=== PATIENT | male | born 1950 | race Caucasian/White ===

== ENCOUNTER → 2018-03-11 | Outpatient (CLI) | payer BC ==
--- NOTE | 2018-03-11 08:58 | XR ---
EXAMINATION TYPE: XR lumbar spine 2 or 3V DATE OF EXAM: 03/11/2018 CLINICAL HISTORY: Unexplained pain with no known injury. TECHNIQUE: Frontal an lateral images of the lumbar spine are obtained. COMPARISON: None FINDINGS: There are 5 lumbar type vertebral bodies identified. The lumbar spine shows satisfactory alignment without evidence of acute fracture or dislocation. Vertebral body heights and disk space he ights are within normal limits. There is facet arthropathy from L3 through S1 with small anterior o steophytes throughout the lumbar spine and intervertebral disc space narrowing at L5-S1. Facet arthro alonzo appears to contribute to at least mild neural foraminal narrowing at L5-S1 suspected minimal ne ural foraminal narrowing at L4-L5. This could be further assessed with MRI. There is a mild levoscoli otic curvature of the lumbar spine, possibly positional in nature. Minimal atherosclerosis is seen of the abdominal aorta. Overlying bowel is nondilated. IMPRESSION: 1. No acute fracture or malalignment is seen in the lumbar spine. 2. Degenerative disc disease of the lumbar spine most pronounced at L4-L5 with neural foraminal narro wing at L5-S1 and suspected neural foraminal narrowing at L4-L5. More accurate assessment of degree o f stenosis could be assessed with MRI.
== END ==
LOC: RADXRMAIN 07:37
PROVIDERS: ATTEND Family Medicine
DX: M48.061 Spinal stenosis, lumbar region without neurogenic claudication (principal); M99.74 Connective tissue and disc stenosis of intervertebral foramina of sacral region; M51.36 Other intervertebral disc degeneration, lumbar region
CPT/HCPCS: 72100

== ENCOUNTER 2018-07-16 19:52 | Observation (INO) | payer MEDICARE, OTHER ==
--- NOTE | 2018-07-16 22:09 | ED ---
General Adult HPI - General Chief complaint: Recheck/Abnormal Lab/Rx Stated complaint: Mass on pancreas Source: patient, family, RN notes reviewed, old records reviewed Mode of arrival: ambulatory Limitations: no limitations - History of Present Illness Initial comments: Chief complaint and history of present illness this is a 68-year-old male who was told to come the emergency room after having had a CAT scan of the abdomen and pelvis. For the past several months the patient been losing weight. CAT scan performed today revealed a large mesenteric mass that appeared to be arising from the anterior pancreatic head is also suspicion for fistulous communication with the third portion of the duodenum with foci of internal air and a punctate focus of probable oral contrast contained within the mass. Also at least 9 hepatic metastasis. - Related Data Home Medications Medication Instructions Recorded Confirmed Aspirin EC [Ecotrin Low Dose] 81 mg PO DAILY 07/16/18 07/16/18 L.acidoph,Paracasei, B.lactis 1 cap PO DAILY 07/16/18 07/16/18 [Probiotic] Lisinopril 30 mg PO DAILY 07/16/18 07/16/18 Lovastatin [Mevacor] 40 mg PO HS 07/16/18 07/16/18 Multivitamins, Thera [Multivitamin 1 tab PO DAILY 07/16/18 07/16/18 (formulary)] Allergies Allergy/AdvReac Type Severity Reaction Status Date / Time No Known Allergies Allergy Verified 07/16/18 20:33 Review of Systems ROS Statement: Those systems with pertinent positive or pertinent negative responses have been documented in the HPI. Review of systems. The patient is denying any headache or chest pain or shortness of breath months ago had low back pain no abdominal pain. Significantly decreased appetite with 50 pound weight loss over the past several months. Has medical problems significant for insulin diabetes mellitus. But recently stopped his medications because of decreased appetite and lower blood sugars. He denies smoking. No family history of medical problems. He is to be an alcoholic but not for the past 10 years. No known ALLERGIES. ROS Other: All systems not noted in ROS Statement are negative. Past Medical History Past Medical History: Diabetes Mellitus History of Any Multi-Drug Resistant Organisms: None Reported Past Surgical History: No Surgical Hx Reported Past Psychological History: No Psychological Hx Reported Smoking Status: Former smoker Past Alcohol Use History: None Reported Past Drug Use History: None Reported General Exam - General Exam Comments Initial Comments: General: The patient is awake and alert, in no distress, and does not appear acutely ill. Patient is here because of a CAT scan that showed probable pancreatic neoplasm with extension into the duodenum and metastatic lesions to the liver. The patient had lab work done earlier in the day. This is reviewed. Amylase lipase within normal limits white count normal. Vital signs stable. Patient was sent in by the oncologist for evaluation and management. Eye: Pupils are equal, round and reactive to light, extra-ocular movements are intact ; there is normal conjunctiva bilaterally. No signs of icterus. Ears, nose, mouth and throat: There are moist mucous membranes and no oral lesions. Neck: The neck is supple, there is no tenderness or JVD. Cardiovascular: There is a regular rate and rhythm. No murmur, rub or gallop is appreciated. Respiratory: Lungs are clear to auscultation, respirations are non-labored, breath sounds are equal. No wheezes, stridor, rales, or rhonchi. Gastrointestinal: Soft, non-distended, non-tender abdomen without masses or organomegaly noted. There is no rebound or guarding present. No CVA tenderness. Bowel sounds are unremarkable. Back: There is no tenderness to palpation in the midline. There is no obvious deformity. No rashes noted. Musculoskeletal: Normal ROM, no tenderness, There is no pedal edema. There is no calf tenderness or swelling. Sensation intact. Pulses equal bilaterally 2+. Neurological: CN II-XII intact, There are no obvious motor or sensory deficits. Coordination appears grossly intact. Speech is normal. Skin: Skin is warm and dry and no rashes or lesions are noted. Psychiatric: Cooperative, a Limitations: no limitations Course Vital Signs 07/16/18 20:03 Temperature 97.7 F Pulse Rate 101 H Respiratory 20 Rate Blood Pressure 110/62 O2 Sat by Pulse 96 Oximetry Medical Decision Making - Medical Decision Making Medical decision making; the patient's here because of the CAT scan that showed evidence of pancreatic mass with possible fistula communication with the third portion of the duodenum. Patient is not complaining of abdominal pain at this time. Labs were performed as an outpatient today. His white count 20,000 hemoglobin 8.9 hematocrit 29. Potassium 4.5. BUN 18 creatinine 0.84 the GFR greater than 90. Glucose 92. AST ALT within normal limits alk phos within normal limits. Amylase 50 lipase 194. And discussed the case with Dr. Bryant on-call oncologist. He recommends admission for further evaluation. I also discussed the case withwan continuing education dean for Dr. Rao. Patient be admitted to internal medicine with oncology follow- up. d Disposition Clinical Impression: Pancreatic mass Disposition: ADMITTED IP TO THIS HOSP Is patient prescribed a controlled substance at d/c from ED?: No Referrals: Sai Landers DO [Primary Care Provider] - 1-2 days
[2018-07-16] MEDS ORDERED: HYDROmorphone 0.5 MG/0.5 ML SYRINGE IVP PRN (22:20)
[2018-07-16] MEDS ORDERED: NALOXONE 0.4 MG/ML 1 ML VIAL IV PRN (22:20)
[2018-07-16] MEDS ORDERED: ONDANSETRON 4 MG/2 ML VIAL IVP PRN (22:20)
[2018-07-16] MEDS: SODIUM CHLORIDE 0.9% 1,000 ML IV SCH (22:56)
[2018-07-16 23:23] VITALS: RESP 16; BMI 27.3
[2018-07-17 08:55] LABS: Basophils # (A) 0.1 k/uL (0-0.2); Basophils % (A) 0 %; Eosinophils # (A) 0.7 k/uL (0-0.7); Eosinophils % (A) 5 %; HCT 27.9 % (39.0-53.0); HGB 8.6 gm/dL (13.0-17.5); Hypochromasia Marked; Lymphocytes # (A) 0.8 k/uL (1.0-4.8); Lymphocytes % (A) 6 %; MCH 24.3 pg (25.0-35.0); MCHC 30.6 g/dL (31.0-37.0); MCV 79.3 fL (80.0-100.0); Mean Platelet Volume 5.9; Monocytes # (A) 0.9 k/uL (0-1.0); Monocytes % (A) 6 %; Neutrophils % (A) 80 %; Platelet Count 589 k/uL (150-450); RBC 3.52 m/uL (4.30-5.90); RDW 13.5 % (11.5-15.5); WBC 13.7 k/uL (3.8-10.6)
[2018-07-17] MEDS: SODIUM CHLORIDE 0.9% 1,000 ML IV SCH ×2 (08:56→18:03)
[2018-07-17] MEDS ORDERED: LISINOPRIL 10 MG TAB PO SCH (09:00)
[2018-07-17] MEDS ORDERED: PANTOPRAZOLE 40 MG/10 ML VIAL IV SCH (09:00)
[2018-07-17 09:27] LABS: ALT 22 U/L (21-72); AST 24 U/L (17-59); Albumin 3.2 g/dL (3.5-5.0); Alkaline Phosphatase 167 U/L (38-126); Amylase 42 U/L (30-110); Anion Gap 12 mmol/L; Blood Urea Nitrogen 13 mg/dL (9-20); Calcium 9.2 mg/dL (8.4-10.2); Carbon Dioxide 28 mmol/L (22-30); Chloride 100 mmol/L (98-107); Glucose 67 mg/dL (74-99); Lipase 308 U/L (23-300); Potassium 4.4 mmol/L (3.5-5.1); Sodium 140 mmol/L (137-145); Total Bilirubin 0.5 mg/dL (0.2-1.3)
[2018-07-17 12:28] VITALS: BP 115/68; PULSE 78; TEMP 97.9
[2018-07-17] MEDS ORDERED: RX INFO: IV CONTRAST WAS GIVEN 1 EACH MISC MISCELLANE PRN (13:30)
--- NOTE | 2018-07-17 13:40 | P.CONS ---
History of Present Illness - Reason for Consult Consult date: 07/17/18 new Pancreatic Requesting physician: Dwaine Rodas - Chief Complaint Sent in after CT - History of Present Illness This is a 68 year old male patient who was told to come the emergency room after having had a CAT scan of the abdomen and pelvis. Over the past few months he has been having intermittent abdominal pain, weight loss, and worsening fatigue. CAT scan performed on 07/16/18 revealed a large mesenteric mass that appeared to be arising from the anterior pancreatic head is also suspicion for fistulous communication with the third portion of the duodenum with foci of internal air and a punctate focus of probable oral contrast contained within the mass. Also at least 9 hepatic metastasis. Review of Systems A 14 point review of systems assessed and completed and all negative except HPI Past Medical History Past Medical History: Diabetes Mellitus History of Any Multi-Drug Resistant Organisms: None Reported Past Surgical History: No Surgical Hx Reported Past Psychological History: No Psychological Hx Reported Smoking Status: Former smoker Past Alcohol Use History: None Reported Past Drug Use History: None Reported - Past Family History Mother Additional Family Medical History / Comment(s): Lung Cancer at age 83 Father Family Medical History: CVA/TIA Medications and Allergies Home Medications Medication Instructions Recorded Confirmed Type Aspirin EC [Ecotrin Low Dose] 81 mg PO DAILY 07/16/18 07/16/18 History L.acidoph,Paracasei, B.lactis 1 cap PO DAILY 07/16/18 07/16/18 History [Probiotic] Lisinopril 30 mg PO DAILY 07/16/18 07/16/18 History Lovastatin [Mevacor] 40 mg PO HS 07/16/18 07/16/18 History Multivitamins, Thera [Multivitamin 1 tab PO DAILY 07/16/18 07/16/18 History (formulary)] Allergies Allergy/AdvReac Type Severity Reaction Status Date / Time No Known Allergies Allergy Verified 07/16/18 20:33 Physical Exam Vitals: Vital Signs Temp Pulse Pulse Resp BP BP Pulse Ox 07/17/18 11:52 97.9 F 78 16 115/68 100 07/17/18 05:00 98.1 F 74 16 101/68 99 07/16/18 23:23 16 07/16/18 23:13 97.7 F 82 16 112/80 99 07/16/18 22:56 98.1 F 77 20 118/86 98 07/16/18 22:00 79 20 113/77 97 07/16/18 21:07 89 20 110/63 99 07/16/18 20:03 97.7 F 101 H 20 110/62 96 Intake and Output 07/16/18 07/17/18 07/17/18 22:59 06:59 14:59 Intake Total 820 Balance 820 Intake: Intake, IV Titration 400 Amount Sodium Chloride 0.9% 1, 400 000 ml @ 100 mls/hr IV . Q10H [facility] Rx#:[id number] Oral 420 Other: Voiding Method Toilet Toilet # Voids 3 Weight 91.535 kg 91.535 kg Gen: Alert and in no acute distress Head NC NT Neck Supple No lymphadenopathy on exam Mouth without lesions Lungs: Diminished lower bibasilar, no increased effort Abdomen: soft, ND tender to palpation Heart RRR, S1s2 Extremities, No Edema Results CBC & Chem 7: 07/17/18 08:08 07/17/18 08:08 Labs: Abnormal Lab Results - Last 24 Hours (Table) 07/17/18 07/17/18 Range/Units 08:08 08:08 WBC 13.7 H (3.8-10.6) k/uL RBC 3.52 L (4.30-5.90) m/uL Hgb 8.6 L (13.0-17.5) gm/dL Hct 27.9 L (39.0-53.0) % MCV 79.3 L (80.0-100.0) fL MCH 24.3 L (25.0-35.0) pg MCHC 30.6 L (31.0-37.0) g/dL Plt Count 589 H (150-450) k/uL Neutrophils # 11.0 H (1.3-7.7) k/uL Lymphocytes # 0.8 L (1.0-4.8) k/uL Creatinine 0.63 L (0.66-1.25) mg/dL Glucose 67 L (74-99) mg/dL Alkaline Phosphatase 167 H (38-126) U/L Total Protein 6.0 L (6.3-8.2) g/dL Albumin 3.2 L (3.5-5.0) g/dL Lipase 308 H (23-300) U/L CT scan - abdomen: report reviewed CT scan - pelvis: report reviewed Assessment and Plan Plan: Assessment and Recs: 1. Large mesenteric mass -Concern as it appears to be arising from the anterior pancreatic head - Concern for suspicion of fistulous communication with the third portion of the duodenum with foci of internal air and a punctate focus of probable oral contrast contained within the mass. - Evidence of abnormalities in Liver. Also at least 9 hepatic metastasis. - Will need tissue biopsy although concern for involvement of the duodenum is of most importance to address. - Consult placed for GI, ?EGD and Stenting, may benefit from Tertiary transfer for this procedure. If this is possible as opposed to invasive surgical measures would benefit patient in the picture of a metastatic cancer which will have better outcomes as soon as treatment is possible. If invasive surgical intervention completed will need to await a minimum of 4-6 weeks prior to initiation of systemic treatment - CT Chest full staging after returns from tertiary. 2. Normocytic anemia: - Iron Studies. Folate MMA. - malignancy plus nutitional absorbtion likely contributing. Physician Attest: I have completed the full history and physical and devloped the complete impression and plan, agree with above dictation dictated as a scribe
[2018-07-17 13:59] LABS: Partial Thromboplastin Time 26.9 sec (22.0-30.0); Prothrombin Time 11.1 sec (9.0-12.0)
--- NOTE | 2018-07-17 18:54 | P.HPIM ---
History of Present Illness Combined H&P and discharge summary This is a pleasant 68 years old male with past medical history of diabetes mellitus, hypertension, hyperlipidemia who presents because of loss of weight. And abnormal computed tomography scan results. Patient has been losing about 50 pounds of weight since last February, however patient was denying any early pain, no nausea vomiting, he has sometimes loose bowel movement each time he eats but that is been on and off. So patient is without chest pain or dyspnea. He had a CT of the abdomen and pelvis: Ill-defined mass beginning at the inferior margin of the pancreatic head, with high suspicion for a fistulous communication with the third portion of the duodenum, (see report of the CAT scan of the abdomen/pelvis) from 07/16/2018. Patient has been evaluated by oncology and gastroenterology team. Patient might need stenting or further surgical intervention after evaluation which is beyond the scope of this hospital. He was recommended by the medical team and consultants to transfer patient to a tertiary care center. Discussed with patient and at bedside and both agreed to go to . Vitas is stable, left showing mild leukocytosis. Liver enzymes and bilirubin within normal limits. i discussed the case with dr. Mancia from [facility] and he kindly accepted the patient for transfer Problems and management plan discussed with the patient and he verbalized understanding and acceptance Gen: patient is a AAOx3, no distress, thin built CVS: S1-S2, RRR, no murmur Lungs: B/L CTA, no wheezing Abdomen: soft, no distention, no tenderness, positive bowel sounds Extremity: no leg edema or induration Time spent more than 35 minutes Review of Systems CONSTITUTIONAL: No fever, no malaise, no fatigue. HEENT: No recent visual problems or hearing problems. Denied any sore throat. CARDIOVASCULAR: No orthopnea, PND, no palpitations, no syncope. PULMONARY: No shortness of breath, no cough, no hemoptysis. GASTROINTESTINAL: No diarrhea, no nausea, no vomiting, no abdominal pain. Normoactive bowel sounds. NEUROLOGICAL: No headaches, no weakness, no numbness. HEMATOLOGICAL: Denies any bleeding or petechiae. GENITOURINARY: Denies any burning micturition, frequency, or urgency. MUSCULOSKELETAL/RHEUMATOLOGICAL: Denies any joint pain, swelling, or any muscle pain. ENDOCRINE: Denies any polyuria or polydipsia. Past Medical History Past Medical History: Diabetes Mellitus History of Any Multi-Drug Resistant Organisms: None Reported Past Surgical History: No Surgical Hx Reported Past Psychological History: No Psychological Hx Reported Smoking Status: Former smoker Past Alcohol Use History: None Reported Past Drug Use History: None Reported - Past Family History Mother Additional Family Medical History / Comment(s): Lung Cancer at age 83 Father Family Medical History: CVA/TIA Medications and Allergies Home Medications Medication Instructions Recorded Confirmed Type Aspirin EC [Ecotrin Low Dose] 81 mg PO DAILY 07/16/18 07/16/18 History L.acidoph,Paracasei, B.lactis 1 cap PO DAILY 07/16/18 07/16/18 History [Probiotic] Lisinopril 30 mg PO DAILY 07/16/18 07/16/18 History Lovastatin [Mevacor] 40 mg PO HS 07/16/18 07/16/18 History Multivitamins, Thera [Multivitamin 1 tab PO DAILY 07/16/18 07/16/18 History (formulary)] Allergies Allergy/AdvReac Type Severity Reaction Status Date / Time No Known Allergies Allergy Verified 07/16/18 20:33 Physical Exam Vitals: Vital Signs Temp Pulse Pulse Resp BP BP Pulse Ox 07/17/18 11:52 97.9 F 78 16 115/68 100 07/17/18 05:00 98.1 F 74 16 101/68 99 07/16/18 23:23 16 07/16/18 23:13 97.7 F 82 16 112/80 99 07/16/18 22:56 98.1 F 77 20 118/86 98 07/16/18 22:00 79 20 113/77 97 07/16/18 21:07 89 20 110/63 99 07/16/18 20:03 97.7 F 101 H 20 110/62 96 Intake and Output 07/16/18 07/17/18 07/17/18 22:59 06:59 14:59 Intake Total 820 Balance 820 Intake: Intake, IV Titration 400 Amount Sodium Chloride 0.9% 1, 400 000 ml @ 100 mls/hr IV . Q10H [facility] Rx#:[id number] Oral 420 Other: Voiding Method Toilet Toilet # Voids 3 Weight 91.535 kg 91.535 kg GENERAL: The patient is alert and oriented x3, not in any acute distress. Well developed, well nourished. HEENT: Pupils are round and equally reacting to light. EOMI. No scleral icterus. No conjunctival pallor. Normocephalic, atraumatic. No pharyngeal erythema. No thyromegaly. CARDIOVASCULAR: S1 and S2 present. No murmurs, rubs, or gallops. PULMONARY: Chest is clear to auscultation, no wheezing or crackles. ABDOMEN: Soft, nontender, nondistended, normoactive bowel sounds. No palpable organomegaly. MUSCULOSKELETAL: No joint swelling or deformity. EXTREMITIES: No cyanosis, clubbing, or pedal edema. NEUROLOGICAL: Gross neurological examination did not reveal any focal deficits. SKIN: No rashes. Results CBC & Chem 7: 07/17/18 08:08 07/17/18 08:08 Labs: Abnormal Lab Results - Last 24 Hours (Table) 07/17/18 07/17/18 Range/Units 08:08 08:08 WBC 13.7 H (3.8-10.6) k/uL RBC 3.52 L (4.30-5.90) m/uL Hgb 8.6 L (13.0-17.5) gm/dL Hct 27.9 L (39.0-53.0) % MCV 79.3 L (80.0-100.0) fL MCH 24.3 L (25.0-35.0) pg MCHC 30.6 L (31.0-37.0) g/dL Plt Count 589 H (150-450) k/uL Neutrophils # 11.0 H (1.3-7.7) k/uL Lymphocytes # 0.8 L (1.0-4.8) k/uL Creatinine 0.63 L (0.66-1.25) mg/dL Glucose 67 L (74-99) mg/dL Alkaline Phosphatase 167 H (38-126) U/L Total Protein 6.0 L (6.3-8.2) g/dL Albumin 3.2 L (3.5-5.0) g/dL Lipase 308 H (23-300) U/L Thrombosis Risk Factor Assmnt - Choose All That Apply Any of the Below Risk Factors Present?: No Other Risk Factors: Yes Each Risk Factor Represents 2 Points: Age 61-74 years, Malignancy Thrombosis Risk Factor Assessment Total Risk Factor Score: 4 Thrombosis Risk Factor Assessment Level: Moderate Risk Assessment and Plan Plan: Labs and medication were reviewed.. Continue same treatment. Continue with symptomatic treatment. Resume home medication. Monitor lytes and vitals. DVT and GI prophylaxis. Further recommendations of the clinical course of the patient DVT prophylaxis: Subcutaneous heparin GI Prophylaxis: Pepcid PT/OT: Pending Prognosis is guarded
[2018-07-17 19:30] LABS: Folate, Serum 6.7 ng/mL
[2018-07-17 19:34] LABS: Iron Saturation 2.9 (15.00-50.00)
[2018-07-17] MEDS ORDERED: ATORVASTATIN 10 MG TAB PO SCH (21:00)
--- NOTE | 2018-07-17 22:16 | P.CONS ---
History of Present Illness - Reason for Consult Consult date: 07/17/18 Pancreatic neoplasm Requesting physician: Anshu E Sheet - Chief Complaint Abnormal CT - History of Present Illness The patient is a 68-year-old male with medical history significant for diabetes mellitus, hypertension, hyperlipidemia who presented to the hospital due to abnormal imaging findings performed as an outpatient. The patient had been seen by the oncology service due to complaints of unintentional weight loss. He had reported losing approximately 50 pounds since February and had outpatient imaging performed with a computed tomography scan of the abdomen and pelvis on 07/16/2018. Computed tomography scan described an ill-defined mass in the pancreatic head with concern for fistula and communication with the third portion of the duodenum based on evidence of air and contrast in the mass as well as metastases to the liver. The patient's had laboratory evaluation significant for anemia, with essentially normal liver function tests. He denies any nausea, vomiting or change in bowel habits. Review of Systems REVIEW OF SYSTEMS: CONSTITUTIONAL: The patient does report significant weight loss and fatigue CARDIOVASCULAR: Denies any chest pain, palpitations high or low blood pressures RESPIRATORY: Denies any shortness of breath, hemoptysis or cough. GENITOURINARY: No dysuria or hematuria. MUSCULOSKELETAL: No weakness reported. SKIN: Denies any new rashes or lesions, jaundice or pallor. PSYCHIATRIC: Denies any depression or anxiety. NEUROLOGY: Denies headache, denies any new focal deficits. EARS/NOSE/THROAT: No recent hearing change, congestion, nasal discharge or sore throat. EYES: No pain in eyes, discharge or change in vision. GASTROINTESTINAL: As per HPI. Past Medical History Past Medical History: Diabetes Mellitus History of Any Multi-Drug Resistant Organisms: None Reported Past Surgical History: No Surgical Hx Reported Past Psychological History: No Psychological Hx Reported Smoking Status: Former smoker Past Alcohol Use History: None Reported Past Drug Use History: None Reported - Past Family History Mother Additional Family Medical History / Comment(s): Lung Cancer at age 83 Father Family Medical History: CVA/TIA Medications and Allergies Home Medications Medication Instructions Recorded Confirmed Type Aspirin EC [Ecotrin Low Dose] 81 mg PO DAILY 07/16/18 07/16/18 History L.acidoph,Paracasei, B.lactis 1 cap PO DAILY 07/16/18 07/16/18 History [Probiotic] Lisinopril 30 mg PO DAILY 07/16/18 07/16/18 History Lovastatin [Mevacor] 40 mg PO HS 07/16/18 07/16/18 History Multivitamins, Thera [Multivitamin 1 tab PO DAILY 07/16/18 07/16/18 History (formulary)] Allergies Allergy/AdvReac Type Severity Reaction Status Date / Time No Known Allergies Allergy Verified 07/16/18 20:33 Physical Exam Vitals: Vital Signs Temp Pulse Pulse Resp BP BP Pulse Ox 07/17/18 11:52 97.9 F 78 16 115/68 100 07/17/18 05:00 98.1 F 74 16 101/68 99 07/16/18 23:23 16 07/16/18 23:13 97.7 F 82 16 112/80 99 07/16/18 22:56 98.1 F 77 20 118/86 98 Intake and Output 07/17/18 07/17/18 07/17/18 06:59 14:59 22:59 Intake Total 820 Balance 820 Intake: Intake, IV Titration 400 Amount Sodium Chloride 0.9% 1, 400 000 ml @ 100 mls/hr IV . Q10H [facility] Rx#:[id number] Oral 420 Other: Voiding Method Toilet Toilet Toilet # Voids 3 1 Weight 91.535 kg On physical examination, patient appears comfortable in no apparent distress. HEAD: Normocephalic, atraumatic. EYES: No scleral icterus. No conjunctival injection. MOUTH: No lesions, tongue midline. NECK: Trachea midline, no gross abnormalities. CHEST: Clear to auscultation with no wheezing or rhonchi appreciated. HEART: Regular rate and rhythm. ABDOMEN: Soft, obese. Bowel sounds are positive. No organomegaly. No guarding or rigidity. EXTREMITIES: No pedal edema. SKIN: No rashes, no jaundice. NEUROLOGIC: Alert and oriented x3. No focal deficits. Results CBC & Chem 7: 07/17/18 08:08 07/17/18 08:08 Labs: Abnormal Lab Results - Last 24 Hours (Table) 07/17/18 07/17/18 07/17/18 Range/Units 08:08 08:08 13:35 WBC 13.7 H (3.8-10.6) k/uL RBC 3.52 L (4.30-5.90) m/uL Hgb 8.6 L (13.0-17.5) gm/dL Hct 27.9 L (39.0-53.0) % MCV 79.3 L (80.0-100.0) fL MCH 24.3 L (25.0-35.0) pg MCHC 30.6 L (31.0-37.0) g/dL Plt Count 589 H (150-450) k/uL Neutrophils # 11.0 H (1.3-7.7) k/uL Lymphocytes # 0.8 L (1.0-4.8) k/uL Creatinine 0.63 L (0.66-1.25) mg/dL Glucose 67 L (74-99) mg/dL Iron 8 L (65-175) ug/dL Iron Saturation 2.90 L (15.00-50.00) Ferritin 533.9 H (22.0-322.0) ng/mL Alkaline Phosphatase 167 H (38-126) U/L Total Protein 6.0 L (6.3-8.2) g/dL Albumin 3.2 L (3.5-5.0) g/dL Lipase 308 H (23-300) U/L CA 19-9 Antigen (0.0-34.9) U/mL 07/17/18 Range/Units 13:35 WBC (3.8-10.6) k/uL RBC (4.30-5.90) m/uL Hgb (13.0-17.5) gm/dL Hct (39.0-53.0) % MCV (80.0-100.0) fL MCH (25.0-35.0) pg MCHC (31.0-37.0) g/dL Plt Count (150-450) k/uL Neutrophils # (1.3-7.7) k/uL Lymphocytes # (1.0-4.8) k/uL Creatinine (0.66-1.25) mg/dL Glucose (74-99) mg/dL Iron (65-175) ug/dL Iron Saturation (15.00-50.00) Ferritin (22.0-322.0) ng/mL Alkaline Phosphatase (38-126) U/L Total Protein (6.3-8.2) g/dL Albumin (3.5-5.0) g/dL Lipase (23-300) U/L CA 19-9 Antigen 51.6 H (0.0-34.9) U/mL CT scan - abdomen: report reviewed (Computed tomography scan described an ill- defined mass in the pancreatic head with concern for fistula and communication with the third portion of the duodenum based on evidence of air and contrast in the mass as well as metastases to the liver. ) Assessment and Plan (1) Pancreatic mass Narrative/Plan: 68-year-old who had outpatient imaging performed for evaluation of unintentional weight loss and was found to have CT findings consistent with pancreatic mass with concern for metastases to the liver and possible fistula formation to the small bowel with air and contrast noted in the pancreatic mass. Current Visit: Yes Status: Acute Code(s): K86.9 - DISEASE OF PANCREAS, UNSPECIFIED SNOMED Code(s): 611513636 Plan: Supportive care Okay for diet Continue pain control Would recommend referral to tertiary center for evaluation by advanced endoscopy service for possible EUS evaluation of pancreatic mass and/or small bowel stent placement Thank you for allowing us to participate in the care of the patient, we will continue to follow
== END 2018-07-17 22:13 | disposition short-term general hospital (02) ==
LOC: EC 19:52 → INTOOBSV 22:25 → 3NMEDONC 22:25
PROVIDERS: ADMIT Hospitalist; ATTEND Hospitalist
DX: K86.9 Disease of pancreas, unspecified (principal); D72.829 Elevated white blood cell count, unspecified; C78.7 Secondary malignant neoplasm of liver and intrahepatic bile duct; D64.9 Anemia, unspecified; R63.4 Abnormal weight loss; E78.5 Hyperlipidemia, unspecified; I10 Essential (primary) hypertension; E11.9 Type 2 diabetes mellitus without complications; Z87.891 Personal history of nicotine dependence; Z79.899 Other long term (current) drug therapy; Z79.82 Long term (current) use of aspirin; Z82.3 Family history of stroke; Z80.1 Family history of malignant neoplasm of trachea, bronchus and lung
CPT/HCPCS: 96361 ×2; 96374; 99284; 83921; 84153; 80053 ×2; 82607; 82728; 82150 ×2; 82746; 83540; 83550; 83690 ×2; 85025 ×2; 85610; 85730; 86301; 71046; 74178; 36415; G0378; C9113; Q9967

== ENCOUNTER → 2018-07-16 | Outpatient (CLI) | payer MEDICARE, OTHER ==
--- NOTE | 2018-07-16 11:01 | XR ---
EXAMINATION TYPE: XR chest 2V DATE OF EXAM: 07/16/2018 COMPARISON: None INDICATION: Abnormal weight loss TECHNIQUE: Frontal and lateral views of the chest are obtained. FINDINGS: The heart size is normal. The pulmonary vasculature is normal. The lungs are clear. IMPRESSION: 1. No acute pulmonary process.
[2018-07-16 11:24] LABS: Basophils # (A) 0.1 k/uL (0-0.2); Basophils % (A) 0 %; Eosinophils # (A) 0.3 k/uL (0-0.7); Eosinophils % (A) 2 %; HCT 29.7 % (39.0-53.0); HGB 8.9 gm/dL (13.0-17.5); Hypochromasia Marked; Lymphocytes # (A) 0.8 k/uL (1.0-4.8); Lymphocytes % (A) 4 %; MCH 23.9 pg (25.0-35.0); MCHC 29.9 g/dL (31.0-37.0); MCV 79.9 fL (80.0-100.0); Mean Platelet Volume 6.4; Monocytes % (A) 5 %; Neutrophils # (A) 18.3 k/uL (1.3-7.7); Neutrophils % (A) 88 %; Platelet Count 681 k/uL (150-450); RBC 3.72 m/uL (4.30-5.90); WBC 20.8 k/uL (3.8-10.6)
[2018-07-16 11:36] LABS: ALT 19 U/L (21-72); AST 26 U/L (17-59); Albumin 3.8 g/dL (3.5-5.0); Alkaline Phosphatase 181 U/L (38-126); Amylase 50 U/L (30-110); Anion Gap 12 mmol/L; Blood Urea Nitrogen 18 mg/dL (9-20); Calcium 9.5 mg/dL (8.4-10.2); Carbon Dioxide 26 mmol/L (22-30); Chloride 98 mmol/L (98-107); Glucose 92 mg/dL (74-99); Lipase 194 U/L (23-300); Potassium 4.5 mmol/L (3.5-5.1); Sodium 136 mmol/L (137-145); Total Bilirubin 0.5 mg/dL (0.2-1.3); Total Protein 6.7 g/dL (6.3-8.2)
--- NOTE | 2018-07-16 14:39 | CT ---
EXAMINATION TYPE: CT abdomen pelvis wo/w con, CT abdomen pelvis wo/w con DATE OF EXAM: 07/16/2018 COMPARISON: None HISTORY: Abnormal weight loss CT DLP: 1080 mGycm Automated exposure control for dose reduction was used. TECHNIQUE: Helical acquisition of images was performed from the lung bases through the pelvis prior to and after the administration of intravenous contrast. 100 mL of Isovue-300 was utilized for the en hanced portion of the examination. Coronal and sagittal reformats were obtained for review as well as delayed imaging through the abdomen only. FINDINGS: LUNG BASES: Severe coronary artery calcifications are seen. Low-attenuation of the aorta suggests ane mily. LIVER/GB: On nonenhanced images there are multiple hypoattenuated hepatic lesions with the largest se en in segment 7/8 measuring at least 5.3 x 5.7 cm, margins are suboptimal without contrast. There are at least 6 additional masses marked on the images. After administration of contrast there are 9 hepa tic lesions with left-sided intrahepatic biliary ductal dilatation overall mild. Gallbladder is unrem arkable. PANCREAS: On the unenhanced images there is an ill-defined mass with few foci of internal air that ma y represent central necrosis or fistula with the adjacent duodenum beginning at the inferior margin o f the pancreatic head and extending caudally within the central abdomen. This is ill-defined without contrast but measures approximately 6.4 x 3.6 x 5.7 cm in transverse by anterior posterior by cranioc audal dimension. There is mild prominence of the pancreatic duct in pancreatic atrophy. This encases the superior mesenteric vein and artery. Downstream branches of the superior mesenteric vein are dila lilian with surrounding inflammatory fat stranding such as on series 3 image 59 with other varicosities seen throughout the abdomen. On the enhanced images this mass is better defined with central necrosis and trace amount of hyperden sity seen on series 4 image 52 suspicious for fistulous communication with the third portion of the d uodenum. Surrounding adenopathy is seen with peripancreatic lymph node antral necrosis measuring 1.2 cm on series 4 image 45 and portacaval lymph node measuring 1.1 cm without central necrosis as well a s portal adenopathy with central necrosis on image 31 measuring 1.5 cm in short axis. SPLEEN: Unremarkable ADRENALS: No significant abnormality is seen. KIDNEYS: No hydronephrosis or nephrolithiasis. Too small to accurately characterize left renal lesion is seen in the midpole. Otherwise the kidneys enhance symmetrically. FREE AIR: No free air is visualized REPRODUCTIVE ORGANS: Prostate gland is heterogenous with central zone calcifications. URINARY BLADDER: Incompletely distended and suboptimally evaluated. OSSEOUS STRUCTURES: Moderate multilevel degenerative changes of the spine are seen. BOWEL: No dilated bowel. As mentioned above there is a possible fistulous communication with the thi rd portion of the duodenum and the adjacent mass. OTHER: Moderate atherosclerosis is seen of the abdominal aorta and its branches. IMPRESSION: 1. 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 THERE IS HIGH SUSPICION FOR A FISTULOUS COMMUNICATION WITH THE INTIMATELY ASSOCIATED THIRD PORTION OF THE DUODENUM WITH FOCI OF INTERNAL AIR AND PUNCTATE FOCUS OF PROBABLE ORAL CONTRAST CONTAINED WITHIN THE MASS. AT LEAST 9 HEPATIC METASTASIS WITH MILD LEFT-SIDED INTRAHEPATIC BILIARY DUCTAL DILATATION ARE N OTED WITH PORTAL CAVAL AND PERIPANCREATIC ADENOPATHY. SUSPICION IS FOR PRIMARY PANCREATIC NEOPLASM WI TH LESS LIKELY CONSIDERATION FOR OTHER ETIOLOGIES SUCH GIST TUMOR. CORRELATION WITH CA-19-9 IS REC OMMENDED. Findings were communicated with Patricia at 1433 on 07/16/[address] Olivas. 2. LOW-ATTENUATION OF THE AORTA SUGGESTS ANEMIA. CORRELATE WITH CBC.
== END ==
LOC: RADCTMAIN 10:36
PROVIDERS: ATTEND Family Medicine
DX: K86.89 Other specified diseases of pancreas (principal); C78.7 Secondary malignant neoplasm of liver and intrahepatic bile duct; K83.8 Other specified diseases of biliary tract; R05 Cough; R63.4 Abnormal weight loss; R11.0 Nausea; Z12.5 Encounter for screening for malignant neoplasm of prostate
CPT/HCPCS: 84153; 80053; 82150; 83690; 85025; 71046; 74178; 36415; Q9967

== ENCOUNTER 2018-09-01 09:53 | Inpatient (IN) | payer MEDICARE, OTHER ==
[2018-09-01] MEDS ORDERED: SODIUM CHLORIDE 0.9% 1,000 ML IV STA (10:08)
[2018-09-01 10:27] LABS: Anisocytosis Slight; HCT 25.1 % (39.0-53.0); HGB 7.3 gm/dL (13.0-17.5); Hypochromasia Marked; MCH 21.7 pg (25.0-35.0); MCHC 29.1 g/dL (31.0-37.0); MCV 74.4 fL (80.0-100.0); Mean Platelet Volume 6.5; Microcytosis Slight; Platelet Count 509 k/uL (150-450); RBC 3.37 m/uL (4.30-5.90); RDW 17.1 % (11.5-15.5)
[2018-09-01 10:39] LABS: ALT 34 U/L (21-72); AST 29 U/L (17-59); Alkaline Phosphatase 332 U/L (38-126); Anion Gap 16 mmol/L; Blood Urea Nitrogen 20 mg/dL (9-20); Calcium 8.6 mg/dL (8.4-10.2); Carbon Dioxide 18 mmol/L (22-30); Chloride 102 mmol/L (98-107); Glucose 179 mg/dL (74-99); Potassium 4.7 mmol/L (3.5-5.1); Sodium 136 mmol/L (137-145); Total Bilirubin 0.7 mg/dL (0.2-1.3); Total Protein 5.7 g/dL (6.3-8.2)
[2018-09-01 10:45] LABS: INR 1.1 (<1.2); Prothrombin Time 11.9 sec (9.0-12.0)
[2018-09-01 10:48] LABS: Partial Thromboplastin Time 21.7 sec (22.0-30.0)
--- NOTE | 2018-09-01 11:22 | ED ---
General Adult HPI - General Chief complaint: Abdominal Pain Stated complaint: weakness Time Seen by Provider: 09/01/18 10:00 Source: patient, EMS, RN notes reviewed Mode of arrival: EMS Limitations: physical limitation - History of Present Illness Initial comments: This is a 68-year-old male who presents emergency Department complaining of of weakness. Patient has a history of stage IV pancreatic cancer. Patient was able to be walking around yesterday but was unable to make it to the bathroom today and he was incontinent of both urine and stool which is happened in the past when is become very weak. Patient denies any chest pain palpitations di fficulty breathing shortness of breath per patient denies abdominal pain. Patient denies any fever chills per patient denies headache patient denies any focal numbness or weakness. Patient denies any lightheadedness dizziness or syncopal episode. Family states the patient has been eating or drinking lately because of some sores in his mouth. Patient states he sometimes is a little lower abdominal discomfort on the left lower quadrant and right now it's not better. - Related Data Home Medications Medication Instructions Recorded Confirmed Lovastatin [Mevacor] 40 mg PO HS 07/16/18 09/01/18 ALPRAZolam [Xanax] 0.25 mg PO TID PRN 09/01/18 09/01/18 Cholestyramine (with Sugar) 4 gm PO ACHS 09/01/18 09/01/18 [Questran Packet] Cool's Solution 5 ml PO ACHS 09/01/18 09/01/18 Cyanocobalamin (Vitamin B-12) 1,000 mcg PO DAILY 09/01/18 09/01/18 [Vitamin B-12] Folic Acid 1 mg PO DAILY 09/01/18 09/01/18 HYDROcodone/APAP 10-325MG [[place] 1 tab PO QID 09/01/18 09/01/18 10-325] Lipase/Protease/Amylase [Mary Ellen Gómez 24,000 units PO TID BETWEEN MEALS 09/01/18 09/01/18 24,000 Units Capsule] Lipase/Protease/Amylase [Mary Ellen Gómez 48,000 units PO TID-W/MEALS 09/01/18 09/01/18 24,000 Units Capsule] Allergies Allergy/AdvReac Type Severity Reaction Status Date / Time No Known Allergies Allergy Verified 07/16/18 20:33 Review of Systems ROS Statement: Those systems with pertinent positive or pertinent negative responses have been documented in the HPI. ROS Other: All systems not noted in ROS Statement are negative. Past Medical History Past Medical History: Diabetes Mellitus History of Any Multi-Drug Resistant Organisms: None Reported Past Surgical History: No Surgical Hx Reported Past Psychological History: No Psychological Hx Reported Smoking Status: Former smoker Past Alcohol Use History: None Reported Past Drug Use History: None Reported - Past Family History Mother Additional Family Medical History / Comment(s): Lung Cancer at age 83 Father Family Medical History: CVA/TIA General Exam - General Exam Comments Initial Comments: GENERAL: She looks cachectic and pale. Patient does not look in any apparent distress at the moment though he is very slow to respond his mouth is very dry ENT: Neck is soft and supple. No significant lymphadenopathy is noted. Oropharynx is clear. Dry mucous membranes. Neck has full range of motion without eliciting any pain. EYES: The sclera were anicteric and conjunctiva were pink and moist. Extraocular movements were intact and pupils were equal round and reactive to light. Eyelids were unremarkable. PULMONARY: Unlabored respirations. Good breath sounds bilaterally. No audible rales rhonchi or wheezing was noted. CARDIOVASCULAR: Patient is tachycardic at about 115 beats a minute ABDOMEN: Soft and nontender with normal bowel sounds. No palpable organomegaly was noted. There is no palpable pulsatile mass. SKIN: Skin is clear with no lesions or rashes and otherwise unremarkable. NEUROLOGIC: Patient is alert and oriented x3. Cranial nerves II through XII are grossly intact. Motor and sensory are also intact. Normal speech, volume and content. Symmetrical smile. MUSCULOSKELETAL: Normal extremities with adequate strength and full range of motion. No lower extremity swelling or edema. No calf tenderness. LYMPHATICS: No significant lymphadenopathy is noted PSYCHIATRIC: Normal psychiatric evaluation. Limitations: physical limitation Course Vital Signs 09/01/18 09/01/18 09/01/18 09:58 10:00 10:02 Temperature 97.5 F L Pulse Rate 118 H 118 H 115 H Respiratory 23 19 18 Rate Blood Pressure 85/47 O2 Sat by Pulse 100 100 98 Oximetry 09/01/18 09/01/18 09/01/18 10:30 11:00 11:30 Temperature Pulse Rate 108 H 109 H 110 H Respiratory 15 12 16 Rate Blood Pressure 76/63 92/65 93/71 O2 Sat by Pulse 100 100 100 Oximetry 09/01/18 09/01/18 09/01/18 12:00 12:16 12:30 Temperature 97 F L Pulse Rate 99 92 93 Respiratory 13 16 12 Rate Blood Pressure 89/66 105/75 105/75 O2 Sat by Pulse 100 100 100 Oximetry 09/01/18 09/01/18 09/01/18 13:00 13:30 14:00 Temperature Pulse Rate 92 106 H 93 Respiratory 12 16 15 Rate Blood Pressure 117/88 113/73 97/63 O2 Sat by Pulse 100 99 100 Oximetry 09/01/18 09/01/18 09/01/18 14:30 14:33 14:43 Temperature 98 F 98.6 F Pulse Rate 94 92 Respiratory 16 18 Rate Blood Pressure 105/77 110/75 110/75 O2 Sat by Pulse 99 98 Oximetry 09/01/18 09/01/18 15:00 15:13 Temperature 97.7 F 97.9 F Pulse Rate 89 91 Respiratory 16 16 Rate Blood Pressure 107/74 107/74 O2 Sat by Pulse 96 100 Oximetry Medical Decision Making - Medical Decision Making EKG shows sinus tachycardia with occasional PAC at 104 bpm NH interval 218 QRS is 88 QT interval 360 QTC is 473. Patient is ST segment depression in V3 through V6 as well as inferior leads. Patient's EKG shows normal sinus rhythm at 95 bpm NH interval 126 QRS is 96 QT interval 3:30 QTC is 414. Patient's EKG shows significant ST segment depression in precordial leads V3 through V6 and in leads II, III, and F aVF. Patient also has an additional T-wave inversions in precordial leads V2 through V6 which is progressing from the previous EKG. CT of the abdomen and pelvis shows a necrotic mass in the pancreas Dr. Cortez came down and saw the patient once a second EKG was done. He discussed the case with the family and decided to treat the patient medically for what look like an and STEMI. I spoke with Dr. Rincon agreed to admit the patient admitted the patient wrote admitting orders. Patient received 3 L of fluid in the emergency department secondary to the dehydration and that improved the lactic acid from 8.2-1.6. Patient did have an elevated lactic acid but no source of infection was found no antibiotics were started and therefore no focused exam was done. Patient also was anemic at 7.2 and because he was having and STEMI I decided to give the patient a unit of blood. - Lab Data Result diagrams: 09/01/18 10:16 09/01/18 10:16 Lab Results 09/01/18 09/01/18 09/01/18 Range/Units 10:16 10:16 10:16 WBC 7.0 (3.8-10.6) k/uL RBC 3.37 L (4.30-5.90) m/uL Hgb 7.3 L (13.0-17.5) gm/dL Hct 25.1 L (39.0-53.0) % MCV 74.4 L (80.0-100.0) fL MCH 21.7 L (25.0-35.0) pg MCHC 29.1 L (31.0-37.0) g/dL RDW 17.1 H (11.5-15.5) % Plt Count 509 H (150-450) k/uL Neutrophils % (Manual) 83 % Lymphocytes % (Manual) 9 % Monocytes % (Manual) 2 % Eosinophils % (Manual) 6 % Neutrophils # (Manual) 5.81 (1.3-7.7) k/uL Lymphocytes # (Manual) 0.63 L (1.0-4.8) k/uL Monocytes # (Manual) 0.14 (0-1.0) k/uL Eosinophils # (Manual) 0.42 (0-0.7) k/uL Nucleated RBCs 0 (0-0) /100 WBC Hypochromasia Marked Poikilocytosis (manual Present Anisocytosis Slight Microcytosis Slight PT (9.0-12.0) sec INR (<1.2) APTT (22.0-30.0) sec Sodium 136 L (137-145) mmol/L Potassium 4.7 (3.5-5.1) mmol/L Chloride 102 (98-107) mmol/L Carbon Dioxide 18 L (22-30) mmol/L Anion Gap 16 mmol/L BUN 20 (9-20) mg/dL Creatinine 0.61 L (0.66-1.25) mg/dL Est GFR (CKD-EPI)AfAm >90 (>60 ml/min/1.73 sqM) Est GFR (CKD-EPI)NonAf >90 (>60 ml/min/1.73 sqM) Glucose 179 H (74-99) mg/dL Lactic Ac Sepsis Rflx Plasma Lactic Acid Tan 8.2 H* (0.7-2.0) mmol/L Calcium 8.6 (8.4-10.2) mg/dL Magnesium 2.0 (1.6-2.3) mg/dL Total Bilirubin 0.7 (0.2-1.3) mg/dL AST 29 (17-59) U/L ALT 34 (21-72) U/L Alkaline Phosphatase 332 H (38-126) U/L Troponin I (0.000-0.034) ng/mL Total Protein 5.7 L (6.3-8.2) g/dL Albumin 3.0 L (3.5-5.0) g/dL Urine Color Urine Appearance (Clear) Urine pH (5.0-8.0) Ur Specific [place] (1.001-1.035) Urine Protein (Negative) Urine Glucose (UA) (Negative) Urine Ketones (Negative) Urine Blood (Negative) Urine Nitrite (Negative) Urine Bilirubin (Negative) Urine Urobilinogen (<2.0) mg/dL Ur Leukocyte Esterase (Negative) Urine RBC (0-5) /hpf Urine WBC (0-5) /hpf Ur Squamous Epith Cells (0-4) /hpf Urine Mucus (None) /hpf Blood Type Blood Type Recheck Antibody Screen Crossmatch Spec Expiration Date 09/01/18 09/01/18 09/01/18 Range/Units 10:16 10:16 10:43 WBC (3.8-10.6) k/uL RBC (4.30-5.90) m/uL Hgb (13.0-17.5) gm/dL Hct (39.0-53.0) % MCV (80.0-100.0) fL MCH (25.0-35.0) pg MCHC (31.0-37.0) g/dL RDW (11.5-15.5) % Plt Count (150-450) k/uL Neutrophils % (Manual) % Lymphocytes % (Manual) % Monocytes % (Manual) % Eosinophils % (Manual) % Neutrophils # (Manual) (1.3-7.7) k/uL Lymphocytes # (Manual) (1.0-4.8) k/uL Monocytes # (Manual) (0-1.0) k/uL Eosinophils # (Manual) (0-0.7) k/uL Nucleated RBCs (0-0) /100 WBC Hypochromasia Poikilocytosis (manual Anisocytosis Microcytosis PT 11.9 (9.0-12.0) sec INR 1.1 (<1.2) APTT 21.7 L (22.0-30.0) sec Sodium (137-145) mmol/L Potassium (3.5-5.1) mmol/L Chloride (98-107) mmol/L Carbon Dioxide (22-30) mmol/L Anion Gap mmol/L BUN (9-20) mg/dL Creatinine (0.66-1.25) mg/dL Est GFR (CKD-EPI)AfAm (>60 ml/min/1.73 sqM) Est GFR (CKD-EPI)NonAf (>60 ml/min/1.73 sqM) Glucose (74-99) mg/dL Lactic Ac Sepsis Rflx Y Plasma Lactic Acid Tan (0.7-2.0) mmol/L Calcium (8.4-10.2) mg/dL Magnesium (1.6-2.3) mg/dL Total Bilirubin (0.2-1.3) mg/dL AST (17-59) U/L ALT (21-72) U/L Alkaline Phosphatase (38-126) U/L Troponin I 0.731 H* (0.000-0.034) ng/mL Total Protein (6.3-8.2) g/dL Albumin (3.5-5.0) g/dL Urine Color Urine Appearance (Clear) Urine pH (5.0-8.0) Ur Specific [place] (1.001-1.035) Urine Protein (Negative) Urine Glucose (UA) (Negative) Urine Ketones (Negative) Urine Blood (Negative) Urine Nitrite (Negative) Urine Bilirubin (Negative) Urine Urobilinogen (<2.0) mg/dL Ur Leukocyte Esterase (Negative) Urine RBC (0-5) /hpf Urine WBC (0-5) /hpf Ur Squamous Epith Cells (0-4) /hpf Urine Mucus (None) /hpf Blood Type Blood Type Recheck Antibody Screen Crossmatch Spec Expiration Date 09/01/18 09/01/18 09/01/18 Range/Units 12:12 12:25 13:55 WBC (3.8-10.6) k/uL RBC (4.30-5.90) m/uL Hgb (13.0-17.5) gm/dL Hct (39.0-53.0) % MCV (80.0-100.0) fL MCH (25.0-35.0) pg MCHC (31.0-37.0) g/dL RDW (11.5-15.5) % Plt Count (150-450) k/uL Neutrophils % (Manual) % Lymphocytes % (Manual) % Monocytes % (Manual) % Eosinophils % (Manual) % Neutrophils # (Manual) (1.3-7.7) k/uL Lymphocytes # (Manual) (1.0-4.8) k/uL Monocytes # (Manual) (0-1.0) k/uL Eosinophils # (Manual) (0-0.7) k/uL Nucleated RBCs (0-0) /100 WBC Hypochromasia Poikilocytosis (manual Anisocytosis Microcytosis PT (9.0-12.0) sec INR (<1.2) APTT (22.0-30.0) sec Sodium (137-145) mmol/L Potassium (3.5-5.1) mmol/L Chloride (98-107) mmol/L Carbon Dioxide (22-30) mmol/L Anion Gap mmol/L BUN (9-20) mg/dL Creatinine (0.66-1.25) mg/dL Est GFR (CKD-EPI)AfAm (>60 ml/min/1.73 sqM) Est GFR (CKD-EPI)NonAf (>60 ml/min/1.73 sqM) Glucose (74-99) mg/dL Lactic Ac Sepsis Rflx Plasma Lactic Acid Tan 1.6 (0.7-2.0) mmol/L Calcium (8.4-10.2) mg/dL Magnesium (1.6-2.3) mg/dL Total Bilirubin (0.2-1.3) mg/dL AST (17-59) U/L ALT (21-72) U/L Alkaline Phosphatase (38-126) U/L Troponin I (0.000-0.034) ng/mL Total Protein (6.3-8.2) g/dL Albumin (3.5-5.0) g/dL Urine Color Yellow Urine Appearance Clear (Clear) Urine pH 6.0 (5.0-8.0) Ur Specific [place] 1.026 (1.001-1.035) Urine Protein 1+ H (Negative) Urine Glucose (UA) Trace H (Negative) Urine Ketones Trace H (Negative) Urine Blood Negative (Negative) Urine Nitrite Negative (Negative) Urine Bilirubin Negative (Negative) Urine Urobilinogen <2.0 (<2.0) mg/dL Ur Leukocyte Esterase Negative (Negative) Urine RBC <1 (0-5) /hpf Urine WBC 2 (0-5) /hpf Ur Squamous Epith Cells <1 (0-4) /hpf Urine Mucus Rare H (None) /hpf Blood Type O Positive Blood Type Recheck No Antibody Screen NEGATIVE Crossmatch See Detail Spec Expiration Date 09/04/2018 1740 Critical Care Time Critical Care Time: Yes Total Critical Care Time: 35 Disposition Clinical Impression: Non-STEMI (non-ST elevated myocardial infarction), Lactic acidosis, Dehydration, Pancreatic cancer, Anemia Disposition: ADMITTED IP TO THIS HOSP Referrals: Sai Landers DO [Primary Care Provider] - 1-2 days Time of Disposition: 16:00
--- NOTE | 2018-09-01 11:22 | XR ---
EXAMINATION TYPE: XR chest 2V DATE OF EXAM: 09/01/2018 COMPARISON: Prior chest x-ray 07/16/2018 HISTORY: Weakness, pancreatic carcinoma TECHNIQUE: Frontal and lateral views of the chest are obtained. FINDINGS: There is no focal air space opacity, pleural effusion, or pneumothorax seen. The cardiac silhouette size is within normal limits. Right-sided Port-A-Cath is in place. Bandlike area probable atelectatic change present in the right midlung. The osseous structures are intact. IMPRESSION: Probable atelectasis.
[2018-09-01] MEDS ORDERED: SODIUM CHLORIDE 0.9% 2,000 ML IV ONE (11:23)
[2018-09-01] MEDS ORDERED: cefTRIAXone IN SWFI 1,000 MG/10 ML SYRINGE IVP STA (11:23)
--- NOTE | 2018-09-01 11:24 | CT ---
EXAMINATION TYPE: CT brain wo con DATE OF EXAM: 09/01/2018 COMPARISON: None HISTORY: Near syncope CT DLP: 1087.4 mGycm Automated exposure control for dose reduction was used. FINDINGS: Moderate generalized degenerative change. No mass effect or midline shift. Low-attenuation the white matter is nonspecific. May be secondary to remote microvascular ischemia No definite acute intracrani al hemorrhage. Calvarium intact. IMPRESSION: DEGENERATIVE AND NONSPECIFIC WHITE MATTER CHANGES. NO ACUTE HEMORRHAGE OR MASS EFFECT. IF THERE IS CO NCERN FOR ACUTE ISCHEMIA CORRELATE WITH MRI CLINICALLY WARRANTED.
[2018-09-01 11:26] LABS: Eosinophils # (M) 0.42 k/uL (0-0.7); Lymphocytes # (M) 0.63 k/uL (1.0-4.8); Monocytes # (M) 0.14 k/uL (0-1.0); Neutrophils # (M) 5.81 k/uL (1.3-7.7); Neutrophils % (M) 83 %; Nucleated Red Blood Cells 0 /100 WBC (0-0); Poikilocytosis (M) Present; Total Cells Counted 100
[2018-09-01 12:29] LABS: Appearance,Urine Clear (Clear); Bilirubin,Urine Negative (Negative); Blood,Urine Negative (Negative); Color,Urine Yellow; Glucose,Urine (UA) Trace (Negative); Ketones,Urine Trace (Negative); Leukocyte Esterase,Urine Negative (Negative); Mucus,Urine Rare /hpf; Nitrite,Urine Negative (Negative); Protein,Urine 1+ (Negative); RBC,Urine <1 /hpf (0-5); Specific Gravity,Urine 1.026 (1.001-1.035); Squamous Epithelial Cell,Urine <1 /hpf (0-4); Urobilinogen,Urine <2.0 mg/dL (<2.0); WBC,Urine 2 /hpf (0-5)
[2018-09-01] MEDS ORDERED: ASPIRIN 81 MG PO STA (12:49)
[2018-09-01] MEDS ORDERED: NITROGLYCERIN OINT 1 INCH/GM PACKET TOPICAL STA (12:50)
[2018-09-01] MEDS ORDERED: HEPARIN SODIUM,PORCINE 5,000 UNIT/ML 1 ML VIAL IV ONE (12:50)
[2018-09-01] MEDS ORDERED: HEPARIN SOD,PORK IN 0.45% NACL 25,000 UNIT in 0.45% NACL 1 250ML.BAG IV SCH (13:00)
[2018-09-01] MEDS ORDERED: METOPROLOL TARTRATE 12.5 MG TAB PO STA (13:36)
[2018-09-01] MEDS ORDERED: ATORVASTATIN 80 MG TAB PO STA (13:41)
--- NOTE | 2018-09-01 14:55 | CT ---
EXAMINATION TYPE: CT abdomen pelvis w con DATE OF EXAM: 09/01/2018 COMPARISON: 07/16/2018 HISTORY: Weakness, pancreatic cancer CT DLP: 974.5 mGycm CONTRAST: CT scan of the abdomen and pelvis is performed without Oral Contrast and with IV Contrast, patient in jected with 100 mL of Isovue 300. FINDINGS: LUNG BASES-: No visible nodule. No infiltrate. LIVER/GB: There is evidence of gallbladder dilatation. Innumerable hepatic lesions identified which have increased in overall size and number. The largest measures 7 cm and is at the dome of the liver . Biliary tree is of normal caliber. PANCREAS: Enlarging cavitary mass involving the pancreatic head and uncinate process measuring 6.2 x 7.4 cm versus 5.3 x 5.8 cm previously. Infiltration into the transverse duodenum is difficult to excl ude. SPLEEN: No splenic enlargement. No lesion seen. ADRENALS: No nodule. No thickening. KIDNEYS/BLADDER: No hydronephrosis. No nephrolithiasis. No distinct renal mass. Urinary bladder g rossly unremarkable. BOWEL: Normal appendix. Normal bowel caliber. No inflammation. GENITAL ORGANS: No gross abnormality. LYMPH NODES: No greater than 1cm abdominal or pelvic lymph nodes are appreciated. AORTA: No significant abnormality. OSSEOUS STRUCTURES: No significant abnormality is seen. OTHER: Small amount of free fluid is seen within the right paracolic gutter. IMPRESSION: 1. Enlarging necrotic pancreatic head mass. Infiltration into the duodenum is difficult to exclude. 2. Increased number and size of hepatic lesions noted throughout all hepatic segments. 3. Dilatation of the gallbladder.
--- NOTE | 2018-09-01 16:03 | P.CRDCN ---
History of Present Illness History of present illness: This is Dr. Cortez dictating a consult on this patient The patient was interviewed and examined by me IMPRESSION / ASSESSMENT: Patient presented with weakness with blood pressure as low as 76 mmHg and sinus tachycardia 118 beats a minute Lactic acidosis ECG and troponins done as part of the weakness protocol in the emergency room Abnormal troponins and subsequent ECG showed further ST depressions consistent with myocardial injury Possible non-Q-wave myocardial infarction Patient completely asymptomatic Anemia, stage IV pancreatic cancer with metastasis to the liver Diabetes Recently started on chemotherapy PLAN: Discussed with patient discussed with his discussed with patient's oncologist Dr. Reid Discussed with the ER attending I would recommend blood transfusions, low-dose beta blockers, baby aspirin, statins which have been initiated and I discussed this with the nurse and gave the orders I discussed the option of proceeding with coronary angiography and if needed coronary stenting as clinically indicated However dual antiplatelet therapy poses to challenges in the future. If the patient needs any biliary duct stenting or a procedure to relieve obstruction, P lavix would have to be stopped at that point and one could risk stent thrombosis Irritation dual antiplatelet therapy along with chemotherapy which has just been initiated, could complicate matters if the patient became thrombus cytopenic He is already quite anemic on account of his pancreatic cancer Small risk of bleeding in the liver from metastasis with anticoagulants Other option would be medical treatment with packed red cells, IV hydration, statins low-dose aspirin beta blockers and follow the patient clinically If there was any worsening of condition then coronary angiography could be undertaken After some discussion and deliberation the and the patient decided to proceed with medical management and a conservative strategy I discussed his long-term prognosis Dr. Reid and he feels that with chemotherapy it will be about 10-12 months HPI 68-year-old male patient who presented to the ED with symptoms of weakness. He has a history of stage IV pancreatic cancer and is just started chemotherapy He denied any chest discomfort angina like symptoms palpitations shortness of br eath Mild abdominal pain left lower quadrant No fever chills No syncope Past history of diabetes History of pancreatic cancer with metastasis to the liver Hemoglobin 7.3 Lactic acid 8.2 Blood pressure 85 mmHg Troponins and ECG done as part of the "weakness" protocol Mildly abnormal first ECG and an abnormal troponin of 0.731 IV fluids given blood pressure improved Repeat ECG showed a significant change while the patient remained completely asymptomatic ROS: No fever chills or rigors, no cough, phlegm or expectoration, no nausea, vomiting or diarrhea, he did complain of constipation no hematuria, dysuria, no musculoskeletal complaints, no strokes or seizures, no skin lesions. EXAMINATION: Initial blood pressure 85 mmHg, 76. His mercury and after IV fluids his blood pressure improved 205 mmHg Initial heart rate 118 beats a minute sinus tachycardia and then with IV fluids heart rates improved to the 90s Normal heart sounds no murmurs or gallops no rub Normal breath sounds no rhonchi no crackles Abdomen soft Extended is warm Emaciated gentleman undergoing chemotherapy for stage IV pancreatic cancer REVIEW OF LABS, ECG & MEDICAL DATA First 12-lead ECG shows sinus rhythm with a 0.[address] depression V3 to V6 as well as in the inferior leads, sinus tachycardia 104 beats a minute normal SD Second twelve-lead ECG shows ST depression of at least 2 mm with T-wave inversions V2-V6 predominantly but also greater ST depression in the inferior leads as compared to the first ECG No change in patient's symptoms/no new symptoms no chest discomfort does not appear to be short of breath denies shortness of breath or any angina like symptoms at rest Labs reviewed hemoglobin 7.3 Sodium 136 potassium 4.7 BUN 20 creatinine 0.6 Lactic acid 8.2 Past Medical History Past Medical History: Diabetes Mellitus History of Any Multi-Drug Resistant Organisms: None Reported Past Surgical History: No Surgical Hx Reported Past Psychological History: No Psychological Hx Reported Smoking Status: Former smoker Past Alcohol Use History: None Reported Past Drug Use History: None Reported - Past Family History Mother Additional Family Medical History / Comment(s): Lung Cancer at age 83 Father Family Medical History: CVA/TIA Medications and Allergies Home Medications Medication Instructions Recorded Confirmed Type Lovastatin [Mevacor] 40 mg PO HS 07/16/18 09/01/18 History ALPRAZolam [Xanax] 0.25 mg PO TID PRN 09/01/18 09/01/18 History Cholestyramine (with Sugar) 4 gm PO ACHS 09/01/18 09/01/18 History [Questran Packet] Cool's Solution 5 ml PO [facility] 09/01/18 09/01/18 History Cyanocobalamin (Vitamin B-12) 1,000 mcg PO DAILY 09/01/18 09/01/18 History [Vitamin B-12] Folic Acid 1 mg PO DAILY 09/01/18 09/01/18 History HYDROcodone/APAP 10-325MG [[place] 1 tab PO QID 09/01/18 09/01/18 History 10-325] Lipase/Protease/Amylase [[place] Ellen Gómez 24,000 units PO TID BETWEEN MEALS 09/01/18 09/01/18 History 24,000 Units Capsule] Lipase/Protease/Amylase [Mary Ellen Gómez 48,000 units PO TID-W/MEALS 09/01/18 09/01/18 History 24,000 Units Capsule] Allergies Allergy/AdvReac Type Severity Reaction Status Date / Time No Known Allergies Allergy Verified 07/16/18 20:33 Physical Exam Vitals: Vital Signs Temp Pulse Resp BP Pulse Ox 09/01/18 15:13 97.9 F 91 16 107/74 100 09/01/18 15:00 97.7 F 89 16 107/74 96 09/01/18 14:43 98.6 F 92 18 110/75 98 09/01/18 14:33 98 F 94 16 110/75 99 09/01/18 14:30 105/77 09/01/18 14:00 93 15 97/63 100 09/01/18 13:30 106 H 16 113/73 99 09/01/18 13:00 92 12 117/88 100 09/01/18 12:30 93 12 105/75 100 09/01/18 12:16 97 F L 92 16 105/75 100 09/01/18 12:00 99 13 89/66 100 09/01/18 11:30 110 H 16 93/71 100 09/01/18 11:00 109 H 12 92/65 100 09/01/18 10:30 108 H 15 76/63 100 09/01/18 10:02 97.5 F L 115 H 18 85/47 98 09/01/18 10:00 118 H 19 100 09/01/18 09:58 118 H 23 100 Intake and Output 09/01/18 09/01/18 09/01/18 06:59 14:59 22:59 Intake Total 0 Balance 0 Intake: Blood Product 0 Rc As-1 Unit 0 [id number] Other: Weight 90.718 kg Results 09/01/18 10:16 09/01/18 10:16 Cardiac Enzymes 04/08/19 04/08/19 Range/Units 10:16 10:16 AST 29 (17-59) U/L Troponin I 0.731 H* (0.000-0.034) ng/mL Coagulation 09/01/18 Range/Units 10:16 PT 11.9 (9.0-12.0) sec APTT 21.7 L (22.0-30.0) sec CBC 09/01/18 Range/Units 10:16 WBC 7.0 (3.8-10.6) k/uL RBC 3.37 L (4.30-5.90) m/uL Hgb 7.3 L (13.0-17.5) gm/dL Hct 25.1 L (39.0-53.0) % Plt Count 509 H (150-450) k/uL Comprehensive Metabolic Panel 09/01/18 Range/Units 10:16 Sodium 136 L (137-145) mmol/L Potassium 4.7 (3.5-5.1) mmol/L Chloride 102 (98-107) mmol/L Carbon Dioxide 18 L (22-30) mmol/L BUN 20 (9-20) mg/dL Creatinine 0.61 L (0.66-1.25) mg/dL Glucose 179 H (74-99) mg/dL Calcium 8.6 (8.4-10.2) mg/dL AST 29 (17-59) U/L ALT 34 (21-72) U/L Alkaline Phosphatase 332 H (38-126) U/L Total Protein 5.7 L (6.3-8.2) g/dL Albumin 3.0 L (3.5-5.0) g/dL Current Medications Generic Name Dose Route Start Last Admin Trade Name Freq PRN Reason Stop Dose Admin Aspirin 81 mg 09/02/18 09:00 Aspirin PO DAILY JOSAFAT Atorvastatin Calcium 80 mg 09/02/18 09:00 Lipitor PO DAILY JOSAFAT Metoprolol Tartrate 12.5 mg 09/01/18 21:00 Lopressor PO BID JOSAFAT Intake and Output 09/01/18 09/01/18 09/01/18 06:59 14:59 22:59 Intake Total 0 Balance 0 Intake: Blood Product 0 Rc As-1 Unit 0 [id number] Other: Weight 90.718 kg Patient Weight 09/02/18 06:59 Weight 90.718 kg 09/01/18 10:16 09/01/18 10:16
[2018-09-01] MEDS ORDERED: NITROGLYCERIN SL TABS 0.4 MG TAB SUBLINGUAL PRN (16:51)
[2018-09-01] MEDS ORDERED: [UNRECOGNIZED DRUG - OTHER] PO SCH (17:30)
[2018-09-01 17:56] LABS: Anisocytosis Slight; Basophils % (A) 0 %; Eosinophils # (A) 0.2 k/uL (0-0.7); Eosinophils % (A) 3 %; HCT 24.3 % (39.0-53.0); HGB 7.3 gm/dL (13.0-17.5); Hypochromasia Marked; Lymphocytes # (A) 0.6 k/uL (1.0-4.8); Lymphocytes % (A) 10 %; MCH 22.4 pg (25.0-35.0); MCHC 30.2 g/dL (31.0-37.0); MCV 74.1 fL (80.0-100.0); Mean Platelet Volume 6.5; Microcytosis Moderate; Monocytes # (A) 0.3 k/uL (0-1.0); Monocytes % (A) 5 %; Neutrophils % (A) 81 %; Platelet Count 345 k/uL (150-450); Poikilocytosis Slight; RBC 3.28 m/uL (4.30-5.90); WBC 6.2 k/uL (3.8-10.6)
--- NOTE | 2018-09-01 18:14 | P.CONS ---
History of Present Illness - Reason for Consult Consult date: 09/01/18 Pancreatic Cancer on chemo Requesting physician: John Avilez - Chief Complaint Fall from Standing - History of Present Illness Mr. Massey is a very pleasant male patient who was recently diagnosed with metastatic Pancreatic Cancer and is status post first chemotherapy treatment with Gemsar and abraxane Review of Systems A 14 point review of systems assessed and completed and all negative except HPI Past Medical History Past Medical History: Diabetes Mellitus History of Any Multi-Drug Resistant Organisms: None Reported Past Surgical History: No Surgical Hx Reported Past Psychological History: No Psychological Hx Reported Smoking Status: Former smoker Past Alcohol Use History: None Reported Past Drug Use History: None Reported - Past Family History Mother Additional Family Medical History / Comment(s): Lung Cancer at age 83 Father Family Medical History: CVA/TIA Medications and Allergies Home Medications Medication Instructions Recorded Confirmed Type Lovastatin [Mevacor] 40 mg PO HS 07/16/18 09/01/18 History ALPRAZolam [Xanax] 0.25 mg PO TID PRN 09/01/18 09/01/18 History Cholestyramine (with Sugar) 4 gm PO ACHS 09/01/18 09/01/18 History [Questran Packet] Cool's Solution 5 ml PO ACHS 09/01/18 09/01/18 History Cyanocobalamin (Vitamin B-12) 1,000 mcg PO DAILY 09/01/18 09/01/18 History [Vitamin B-12] Folic Acid 1 mg PO DAILY 09/01/18 09/01/18 History HYDROcodone/APAP 10-325MG [[place] 1 tab PO QID 09/01/18 09/01/18 History 10-325] Lipase/Protease/Amylase [Mary Ellen Gómez 24,000 units PO TID BETWEEN MEALS 09/01/18 09/01/18 History 24,000 Units Capsule] Lipase/Protease/Amylase [Mary Ellen Gómez 48,000 units PO TID-W/MEALS 09/01/18 09/01/18 History 24,000 Units Capsule] Allergies Allergy/AdvReac Type Severity Reaction Status Date / Time No Known Allergies Allergy Verified 07/16/18 20:33 Physical Exam Vitals: Vital Signs Temp Pulse Resp BP Pulse Ox 09/01/18 16:19 98.1 F 86 16 106/82 100 09/01/18 15:13 97.9 F 91 16 107/74 100 09/01/18 15:00 97.7 F 89 16 107/74 96 09/01/18 14:43 98.6 F 92 18 110/75 98 09/01/18 14:33 98 F 94 16 110/75 99 09/01/18 14:30 105/77 09/01/18 14:00 93 15 97/63 100 09/01/18 13:30 106 H 16 113/73 99 09/01/18 13:00 92 12 117/88 100 09/01/18 12:30 93 12 105/75 100 09/01/18 12:16 97 F L 92 16 105/75 100 09/01/18 12:00 99 13 89/66 100 09/01/18 11:30 110 H 16 93/71 100 09/01/18 11:00 109 H 12 92/65 100 09/01/18 10:30 108 H 15 76/63 100 09/01/18 10:02 97.5 F L 115 H 18 85/47 98 09/01/18 10:00 118 H 19 100 09/01/18 09:58 118 H 23 100 Intake and Output 09/01/18 09/01/18 09/01/18 06:59 14:59 22:59 Intake Total 0 Balance 0 Intake: Blood Product 0 Rc As-1 Unit 0 [id number] Other: Weight 90.718 kg Gen: NAD, Head: NC Neck: Supple Lungs: Diminished Bibasilar, no increased effort Abdomen: Tender, mild distention Heart: Tachy Reg Ext NO edema Neuro: NO sensory or motor deficits Results CBC & Chem 7: 09/01/18 17:37 09/01/18 10:16 Labs: Abnormal Lab Results - Last 24 Hours (Table) 09/01/18 09/01/18 09/01/18 Range/Units 10:16 10:16 10:16 RBC 3.37 L (4.30-5.90) m/uL Hgb 7.3 L (13.0-17.5) gm/dL Hct 25.1 L (39.0-53.0) % MCV 74.4 L (80.0-100.0) fL MCH 21.7 L (25.0-35.0) pg MCHC 29.1 L (31.0-37.0) g/dL RDW 17.1 H (11.5-15.5) % Plt Count 509 H (150-450) k/uL Lymphocytes # (Manual) 0.63 L (1.0-4.8) k/uL APTT (22.0-30.0) sec Sodium 136 L (137-145) mmol/L Carbon Dioxide 18 L (22-30) mmol/L Creatinine 0.61 L (0.66-1.25) mg/dL Glucose 179 H (74-99) mg/dL Plasma Lactic Acid Tan 8.2 H* (0.7-2.0) mmol/L Alkaline Phosphatase 332 H (38-126) U/L Troponin I (0.000-0.034) ng/mL Total Protein 5.7 L (6.3-8.2) g/dL Albumin 3.0 L (3.5-5.0) g/dL Urine Protein (Negative) Urine Glucose (UA) (Negative) Urine Ketones (Negative) Urine Mucus (None) /hpf Crossmatch 09/01/18 09/01/18 09/01/18 Range/Units 10:16 10:16 12:12 RBC (4.30-5.90) m/uL Hgb (13.0-17.5) gm/dL Hct (39.0-53.0) % MCV (80.0-100.0) fL MCH (25.0-35.0) pg MCHC (31.0-37.0) g/dL RDW (11.5-15.5) % Plt Count (150-450) k/uL Lymphocytes # (Manual) (1.0-4.8) k/uL APTT 21.7 L (22.0-30.0) sec Sodium (137-145) mmol/L Carbon Dioxide (22-30) mmol/L Creatinine (0.66-1.25) mg/dL Glucose (74-99) mg/dL Plasma Lactic Acid Tan (0.7-2.0) mmol/L Alkaline Phosphatase (38-126) U/L Troponin I 0.731 H* (0.000-0.034) ng/mL Total Protein (6.3-8.2) g/dL Albumin (3.5-5.0) g/dL Urine Protein 1+ H (Negative) Urine Glucose (UA) Trace H (Negative) Urine Ketones Trace H (Negative) Urine Mucus Rare H (None) /hpf Crossmatch 09/01/18 Range/Units 12:25 RBC (4.30-5.90) m/uL Hgb (13.0-17.5) gm/dL Hct (39.0-53.0) % MCV (80.0-100.0) fL MCH (25.0-35.0) pg MCHC (31.0-37.0) g/dL RDW (11.5-15.5) % Plt Count (150-450) k/uL Lymphocytes # (Manual) (1.0-4.8) k/uL APTT (22.0-30.0) sec Sodium (137-145) mmol/L Carbon Dioxide (22-30) mmol/L Creatinine (0.66-1.25) mg/dL Glucose (74-99) mg/dL Plasma Lactic Acid Tan (0.7-2.0) mmol/L Alkaline Phosphatase (38-126) U/L Troponin I (0.000-0.034) ng/mL Total Protein (6.3-8.2) g/dL Albumin (3.5-5.0) g/dL Urine Protein (Negative) Urine Glucose (UA) (Negative) Urine Ketones (Negative) Urine Mucus (None) /hpf Crossmatch See Detail CT scan - abdomen: report reviewed CT Scan - head: report reviewed CT scan - pelvis: report reviewed Assessment and Plan Plan: Assessment and Recommendations: 1. Fall out of Bathtub: 2. Metastatic Pancreatic Cancer: - Status Post one treatment with Gemzar and Abraxane 3. Chronic Illness Myopathy and debility: - PT/OT Evaluation and treatment please, benefoit from home PT/OT after discharge 4. Microcytic Anemia: Malignancy and component of iron deficiency anemia - IV Parental Iron has been ordered as outpatient, ok to give a dose her in hospital will order - MOnitor Daily CBC
[2018-09-01] MEDS ORDERED: LACTATED RINGERS 1,000 ML IV ONE (19:00)
[2018-09-01] MEDS: NITROGLYCERIN OINT 1 INCH/GM PACKET TOPICAL SCH ×2 (19:21→22:45)
[2018-09-01 20:51] LABS: Glucose,Whole Blood 147 mg/dL (75-99)
[2018-09-01] MEDS ORDERED: NON-FORMULARY DRUG (Lovastatin 40 MG) PO SCH (21:00)
[2018-09-01] MEDS: HYDROcodone/APAP 10-325MG 1 EACH TAB PO SCH ×2 (21:39→21:44)
[2018-09-01] MEDS: CHOLESTYRAMINE (WITH SUGAR) 4 GM PACKET PO SCH ×2 (21:39→21:42)
[2018-09-01] MEDS: LIPASE 5,000/PROTEASE 17,000/AMYLASE 24,000 PO SCH (21:41)
[2018-09-01] MEDS: METOPROLOL TARTRATE 12.5 MG TAB PO SCH (21:42)
[2018-09-01] MEDS: LACTATED RINGERS 1,000 ML IV SCH (21:42)
[2018-09-01] MEDS: SODIUM FERRIC GLUCONAT-SUCROSE 125 MG in SODIUM CHLORIDE 0.9% 100 ML IVPB SCH (21:42)
[2018-09-01] MEDS: MAG HYDROX/AL HYDROX/SIMETH 30 ML, diphenhydrAMINE ELIXIR 75 MG, LIDOCAINE VISCOUS 30 ML PO SCH ×3 (21:43)
[2018-09-01] MEDS: ALPRAZolam 0.25 MG TAB PO PRN (23:01)
--- NOTE | 2018-09-01 23:31 | HP ---
HISTORY AND PHYSICAL DATE OF SERVICE: 09/01/2018. PRESENTING COMPLAINT: Weak and tired. HISTORY OF PRESENTING COMPLAINT: This is a pleasant 68-year-old patient of Dr. Landers who has been diagnosed with metastatic pancreatic cancer. The patient did get a dose of chemotherapy. The patient did have a bout of diarrhea last night at home and also had a bout of diarrhea this morning. Was becoming really weak, tired, run down to the point he was falling down. Appetite has really gone down. The patient has got oral blisters following chemotherapy. The patient had a rather large bowel movement in the ER that was rather bloody. The patient also had a troponin leak from the ER for which Cardiology was consulted the patient's is at the bedside. Feels extremely weak, tired, rundown, exhausted. REVIEW OF SYSTEMS: CONSTITUTIONAL: Weak, tired. Loss of appetite. HEENT: Oral blisters. RESPIRATORY: None. CARDIOVASCULAR: No chest pain. GASTROINTESTINAL: As above. No abdominal pain. GENITOURINARY: None. MUSCULOSKELETAL: None. DERMATOLOGICAL, HEMATOLOGIC, LYMPHATIC: None. PSYCHIATRY: None. NEUROLOGICAL: Generalized weakness. PAST MEDICAL HISTORY: Diabetes mellitus type 2, stage IV pancreatic cancer last chemo on 08/27/2018, [facility], anxiety, hypercholesteremia. PAST SURGICAL HISTORY: None. SOCIAL HISTORY: Patient did smoke in the past. . Currently not working. FAMILY HISTORY: Lung caner and stroke. HOME MEDICATIONS: 1. Cool's solution 5 mL p.o. with meals and at bedtime. 2. Mevacor 40 mg at bedtime. 3. Creon 24,000 units, 07747 units p.o. t.i.d. with meals and 24,000 units p.o. t.i.d. with meals. 4. Grass Range 10 one tablet p.o. q.i.d. 5. Folic acid 1 mg p.o. daily. 6. Vitamin B12, 1000 mcg p.o. daily. 7. Questran 4 g p.o. with meals and at bedtime. 8. Xanax 0.25 p.o. t.i.d. p.r.n. ALLERGIES: None. PHYSICAL EXAMINATION: Vital signs on presentation, temperature 97.5, pulse 115, respiratory rate 18, blood pressure 85/47, pulse ox 98% on room air. GENERAL APPEARANCE: Thin built, lying in bed, rather exhausted appearing. EYES: Pupils equal. Conjunctivae pale. HEENT: External appearance of nose and ears normal. Oral cavity oral blisters. NECK: JVD not raised. Mass not palpable. Respiratory effort normal. LUNGS: Slightly decreased breath sounds. CARDIOVASCULAR: 1st and 2nd sounds normal. No edema. ABDOMEN: Soft, nontender. Liver and spleen not palpable. LYMPHATIC: No lymph nodes palpable in the neck or axillae. PSYCHIATRY: Alert and oriented x3. Mood and affect normal. NEUROLOGIC: Pupils equal. Cranial nerves grossly intact. Power and sensation grossly intact. INVESTIGATIONS: Labs, white count 7, hemoglobin 7.3, potassium 4.7 troponin 0.7, 0.89, albumin 3.0. EKG tracing personally reviewed by me shows ST-segment depression in the anterior leads anteriorly. CT scan of the abdomen and pelvis shows gallbladder dilatation and interval hepatic lesions, enlarging cavitary mass involving the pancreatic head and the uncinate process. Chest x-ray film personally reviewed by me shows lung mass with atelectasis. ASSESSMENT: 1. Acute non-Q-wave myocardial infarction manifested by positive troponin and EKG changes. Given patient's bleeding and overall poor condition the patient is currently not a candidate for any antiplatelet agents or any more aggressive intervention. 2. Metastatic pancreatic cancer with large necrotic mass in the pancreatic head with mets to the liver and questionable to the lung. 3. Anxiety not otherwise specified. 4. Acute gastrointestinal bleed. 5. Microcytic anemia, probably a combination of iron deficiency from acute blood loss anemia. 6. Moderate protein-calorie malnutrition from decreased oral intake. 7. Medical debility from underlying malignancy, which seems to be rather progressive and aggressive. PLAN: Consultation was made to Oncology, GI, and Cardiology. The patient did receive a unit of blood. If patient remains symptomatic and blood pressure then goes up, then patient will probably need another unit of blood. Meantime, patient's H and H will be followed. He will be given IV fluids. Patient also on nitroglycerin paste. Prognosis is guarded. Care was discussed with the patient and at the bedside. MMODL / IJN: [id number] /
[2018-09-02 02:58] LABS: Anisocytosis Slight; HCT 23.9 % (39.0-53.0); HGB 7.2 gm/dL (13.0-17.5); Hypochromasia Marked; MCH 22.9 pg (25.0-35.0); MCV 76.4 fL (80.0-100.0); Mean Platelet Volume 6.4; Microcytosis Slight; Platelet Count 284 k/uL (150-450); Poikilocytosis Slight; RBC 3.13 m/uL (4.30-5.90); RDW 17.3 % (11.5-15.5)
[2018-09-02 04:20] LABS: Amorphous Sediment,Urine Rare /hpf; Appearance,Urine Clear (Clear); Bilirubin,Urine Negative (Negative); Blood,Urine Small (Negative); Color,Urine Yellow; Glucose,Urine (UA) Trace (Negative); Ketones,Urine 1+ (Negative); Leukocyte Esterase,Urine Negative (Negative); Mucus,Urine Many /hpf; Nitrite,Urine Negative (Negative); PH, Urine 5.5 (5.0-8.0); Protein,Urine 1+ (Negative); RBC,Urine 5 /hpf (0-5); Urobilinogen,Urine <2.0 mg/dL (<2.0)
[2018-09-02 04:45] LABS: Specific Gravity,Urine >1.050 (1.001-1.035)
[2018-09-02] MEDS: NITROGLYCERIN OINT 1 INCH/GM PACKET TOPICAL SCH ×2 (05:44→12:37)
[2018-09-02 06:01] LABS: Glucose,Whole Blood 114 mg/dL (75-99)
[2018-09-02] MEDS: LIPASE 5,000/PROTEASE 17,000/AMYLASE 24,000 PO SCH ×6 (06:23→17:34)
[2018-09-02] MEDS: CHOLESTYRAMINE (WITH SUGAR) 4 GM PACKET PO SCH ×4 (06:23→22:21)
[2018-09-02] MEDS: MAG HYDROX/AL HYDROX/SIMETH 30 ML, diphenhydrAMINE ELIXIR 75 MG, LIDOCAINE VISCOUS 30 ML PO SCH ×6 (06:29→12:37)
[2018-09-02] MEDS: LACTATED RINGERS 1,000 ML IV SCH ×3 (06:30→22:35)
[2018-09-02 08:17] LABS: Anisocytosis Slight; Basophils % (A) 0 %; Eosinophils # (A) 0.4 k/uL (0-0.7); Eosinophils % (A) 4 %; HCT 27.3 % (39.0-53.0); HGB 8.1 gm/dL (13.0-17.5); Hypochromasia Marked; Lymphocytes # (A) 0.9 k/uL (1.0-4.8); Lymphocytes % (A) 8 %; MCHC 29.5 g/dL (31.0-37.0); MCV 78.1 fL (80.0-100.0); Mean Platelet Volume 6.7; Microcytosis Slight; Monocytes # (A) 0.4 k/uL (0-1.0); Monocytes % (A) 4 %; Neutrophils # (A) 8.4 k/uL (1.3-7.7); Neutrophils % (A) 83 %; Platelet Count 321 k/uL (150-450); Poikilocytosis Slight; RDW 17.4 % (11.5-15.5); WBC 10.2 k/uL (3.8-10.6)
[2018-09-02 08:22] LABS: ALT 34 U/L (21-72); AST 23 U/L (17-59); Albumin 2.6 g/dL (3.5-5.0); Alkaline Phosphatase 252 U/L (38-126); Anion Gap 10 mmol/L; Blood Urea Nitrogen 22 mg/dL (9-20); Carbon Dioxide 21 mmol/L (22-30); Chloride 107 mmol/L (98-107); Cholesterol 107 mg/dL (<200); Glucose 108 mg/dL (74-99); HDL Cholesterol 32 mg/dL (40-60); LDL Cholesterol,Calculated 48 mg/dL (0-99); Magnesium 1.8 mg/dL (1.6-2.3); Potassium 3.8 mmol/L (3.5-5.1); Sodium 138 mmol/L (137-145); Total Bilirubin 0.6 mg/dL (0.2-1.3); Total Protein 5.1 g/dL (6.3-8.2); Triglycerides 135 mg/dL (<150)
[2018-09-02] MEDS ORDERED: ASPIRIN 325 MG TAB PO SCH (09:00)
--- NOTE | 2018-09-02 09:46 | P.CONS ---
History of Present Illness - Reason for Consult Consult date: 09/02/18 GI bleed Requesting physician: Cheko Rincon - Chief Complaint Weakness - History of Present Illness 68-year-old gentleman recently diagnosed with stage IV pancreatic cancer June 2018 recent chemotherapy 1 week ago admitted with weakness loose blood- tinged stool non-Q-wave [place] type II. Patient passed grossly bloody bowel movement last night followed by 2 smaller ones this morning. No history of EGD colonoscopy. Cologard testing 2 months ago was negative. No history of peptic ulcer disease NSAIDs alcohol. Takes a baby aspirin daily. Minimal abdominal discomfort. No emesis. CT abdomen and pelvis reported enlarging necrotic pancreatic head mass infiltration into the duodenum was difficult to exclude. Pancreatic head tumor measuring 6.27.4 cm. Increased number and size of hepatic lesions noted throughout hepatic segments with dilation of the gallbladder. Admission hemoglobin 7.3 presently 8.1. MCV 78. Platelet 321. White count 10.2. INR 1.1. FOBT positive. BUN 20. Creatinine 0.6. Lactic acid 8.2 with hydration 1.6. Troponin 0.7-0.8. LFTs normal except AP 332. Clostridium difficile negative. Previous hemogram and one month ago it 0.9. Review of Systems Constitutional: Denies fever, chills, sweats, weight gain, or loss. Weakness. HEENT: Negative for migraines, blurred vision or loss, earaches, drainage, tinnitus, oral mucosal lesions, dysphagia, or odynophagia. Cardiac: Negative for chest pain, arrhythmias, or palpitation. Respiratory: Negative for shortness of breath, hemoptysis, cough, or sputum production. Gastrointestinal: See HPI for pertinent findings. Genitourinary: Negative for hematuria, urgency, frequency, polyuria, dysuria, or penile discharge. Musculoskeletal: Negative for muscle aches, swelling, arthritis, and arthralgias. Neurologic: Negative for stroke or TIA. Endocrine: Negative for thyroid problems. Skin: Negative for rash or itching. Psychiatric: Negative history for depression and anxiety Past Medical History Past Medical History: Diabetes Mellitus Additional Past Medical History / Comment(s): stage 4 pancreatic cancer, last chemo 08/27, [facility] place 08/18 History of Any Multi-Drug Resistant Organisms: None Reported Past Surgical History: No Surgical Hx Reported Past Psychological History: No Psychological Hx Reported Smoking Status: Former smoker Past Alcohol Use History: None Reported Past Drug Use History: None Reported - Past Family History Mother Additional Family Medical History / Comment(s): Lung Cancer at age 83 Father Family Medical History: CVA/TIA Medications and Allergies Home Medications Medication Instructions Recorded Confirmed Type Lovastatin [Mevacor] 40 mg PO HS 07/16/18 09/01/18 History ALPRAZolam [Xanax] 0.25 mg PO TID PRN 09/01/18 09/01/18 History Cholestyramine (with Sugar) 4 gm PO ACHS 09/01/18 09/01/18 History [Questran Packet] Cool's Solution 5 ml PO ACHS 09/01/18 09/01/18 History Cyanocobalamin (Vitamin B-12) 1,000 mcg PO DAILY 09/01/18 09/01/18 History [Vitamin B-12] Folic Acid 1 mg PO DAILY 09/01/18 09/01/18 History HYDROcodone/APAP 10-325MG [[place] 1 tab PO QID 09/01/18 09/01/18 History 10-325] Lipase/Protease/Amylase [Mary Ellen Gómez 24,000 units PO TID BETWEEN MEALS 09/01/18 09/01/18 History 24,000 Units Capsule] Lipase/Protease/Amylase [Mary Ellen Gómez 48,000 units PO TID-W/MEALS 09/01/18 09/01/18 History 24,000 Units Capsule] Allergies Allergy/AdvReac Type Severity Reaction Status Date / Time No Known Allergies Allergy Verified 07/16/18 20:33 Physical Exam Vitals: Vital Signs Temp Pulse Pulse Resp BP BP Pulse Ox 09/02/18 08:00 97.6 F 82 18 104/65 96 09/02/18 04:00 98.0 F 89 18 106/73 97 09/02/18 00:41 98.0 F 74 18 105/70 97 09/02/18 00:00 98.7 F 81 18 108/69 97 09/01/18 22:40 98.0 F 85 18 111/65 97 09/01/18 22:10 98.2 F 87 18 112/70 98 09/01/18 22:00 98.3 F 88 18 111/67 98 09/01/18 20:39 94 L 09/01/18 20:00 98.5 F 81 18 103/64 98 09/01/18 19:05 86 18 99/73 95 09/01/18 18:33 98.0 F 89 20 98/70 99 09/01/18 18:00 98.3 F 86 18 97/70 98 09/01/18 17:00 82 20 108/70 99 09/01/18 16:43 98.3 F 88 18 111/67 98 09/01/18 16:41 98.6 F 86 16 105/71 100 09/01/18 16:19 98.1 F 86 16 106/82 100 09/01/18 15:13 97.9 F 91 16 107/74 100 09/01/18 15:00 97.7 F 89 16 107/74 96 09/01/18 14:43 98.6 F 92 18 110/75 98 09/01/18 14:33 98 F 94 16 110/75 99 09/01/18 14:30 105/77 09/01/18 14:00 93 15 97/63 100 09/01/18 13:30 106 H 16 113/73 99 09/01/18 13:00 92 12 117/88 100 09/01/18 12:30 93 12 105/75 100 09/01/18 12:16 97 F L 92 16 105/75 100 09/01/18 12:00 99 13 89/66 100 09/01/18 11:30 110 H 16 93/71 100 09/01/18 11:00 109 H 12 92/65 100 09/01/18 10:30 108 H 15 76/63 100 09/01/18 10:02 97.5 F L 115 H 18 85/47 98 09/01/18 10:00 118 H 19 100 09/01/18 09:58 118 H 23 100 Intake and Output 09/01/18 09/02/18 09/02/18 22:59 06:59 14:59 Intake Total 310 310 Output Total 200 Balance 310 110 Intake: Blood Product 310 310 Rc As-1 Unit 310 [id number] Rc Pheresis 2 As3 Unit 0 310 [id number] Output: Urine 200 Other: Voiding Method Bedside Commode Bedside Commode # Voids 1 # Bowel Movements 2 1 Weight 81.9 kg General appearance: The patient is alert, oriented, in no acute distress. HET: Head is normocephalic and atraumatic. Pupils are equal and reactive. Oropharynx is clear without lesions. Neck: Supple without lymphadenopathy. Trachea midline. Heart: S1 S2. Regular rate and rhythm. Lungs: No crackles or wheezes are heard. Abdomen: Soft, nontender, nondistended with bowel sounds. No peritoneal signs. No palpable organomegaly or masses. Extremities: Normal skin color and turgor. No cyanosis, rash, ulceration, clubbing, or edema. Radial and pedal pulses are 2/4 bilaterally. Neurological: No focal deficits. Strength and sensation are grossly intact. Results CBC & Chem 7: 09/02/18 07:02 09/02/18 07:02 Labs: Abnormal Lab Results - Last 24 Hours (Table) 09/01/18 09/01/18 09/01/18 Range/Units 10:16 10:16 10:16 RBC 3.37 L (4.30-5.90) m/uL Hgb 7.3 L (13.0-17.5) gm/dL Hct 25.1 L (39.0-53.0) % MCV 74.4 L (80.0-100.0) fL MCH 21.7 L (25.0-35.0) pg MCHC 29.1 L (31.0-37.0) g/dL RDW 17.1 H (11.5-15.5) % Plt Count 509 H (150-450) k/uL Neutrophils # (1.3-7.7) k/uL Lymphocytes # (1.0-4.8) k/uL Lymphocytes # (Manual) 0.63 L (1.0-4.8) k/uL APTT (22.0-30.0) sec Sodium 136 L (137-145) mmol/L Carbon Dioxide 18 L (22-30) mmol/L BUN (9-20) mg/dL Creatinine 0.61 L (0.66-1.25) mg/dL Glucose 179 H (74-99) mg/dL POC Glucose (mg/dL) (75-99) mg/dL Plasma Lactic Acid Tan 8.2 H* (0.7-2.0) mmol/L Calcium (8.4-10.2) mg/dL Alkaline Phosphatase 332 H (38-126) U/L Troponin I (0.000-0.034) ng/mL Total Protein 5.7 L (6.3-8.2) g/dL Albumin 3.0 L (3.5-5.0) g/dL HDL Cholesterol (40-60) mg/dL Ur Specific [place] (1.001-1.035) Urine Protein (Negative) Urine Glucose (UA) (Negative) Urine Ketones (Negative) Urine Blood (Negative) Amorphous Sediment (None) /hpf Urine Mucus (None) /hpf Crossmatch 09/01/18 09/01/18 09/01/18 Range/Units 10:16 10:16 12:12 RBC (4.30-5.90) m/uL Hgb (13.0-17.5) gm/dL Hct (39.0-53.0) % MCV (80.0-100.0) fL MCH (25.0-35.0) pg MCHC (31.0-37.0) g/dL RDW (11.5-15.5) % Plt Count (150-450) k/uL Neutrophils # (1.3-7.7) k/uL Lymphocytes # (1.0-4.8) k/uL Lymphocytes # (Manual) (1.0-4.8) k/uL APTT 21.7 L (22.0-30.0) sec Sodium (137-145) mmol/L Carbon Dioxide (22-30) mmol/L BUN (9-20) mg/dL Creatinine (0.66-1.25) mg/dL Glucose (74-99) mg/dL POC Glucose (mg/dL) (75-99) mg/dL Plasma Lactic Acid Tan (0.7-2.0) mmol/L Calcium (8.4-10.2) mg/dL Alkaline Phosphatase (38-126) U/L Troponin I 0.731 H* (0.000-0.034) ng/mL Total Protein (6.3-8.2) g/dL Albumin (3.5-5.0) g/dL HDL Cholesterol (40-60) mg/dL Ur Specific [place] (1.001-1.035) Urine Protein 1+ H (Negative) Urine Glucose (UA) Trace H (Negative) Urine Ketones Trace H (Negative) Urine Blood (Negative) Amorphous Sediment (None) /hpf Urine Mucus Rare H (None) /hpf Crossmatch 09/01/18 09/01/18 09/01/18 Range/Units 12:25 17:34 17:37 RBC 3.28 L (4.30-5.90) m/uL Hgb 7.3 L (13.0-17.5) gm/dL Hct 24.3 L (39.0-53.0) % MCV 74.1 L (80.0-100.0) fL MCH 22.4 L (25.0-35.0) pg MCHC 30.2 L (31.0-37.0) g/dL RDW 17.0 H (11.5-15.5) % Plt Count (150-450) k/uL Neutrophils # (1.3-7.7) k/uL Lymphocytes # 0.6 L (1.0-4.8) k/uL Lymphocytes # (Manual) (1.0-4.8) k/uL APTT (22.0-30.0) sec Sodium (137-145) mmol/L Carbon Dioxide (22-30) mmol/L BUN (9-20) mg/dL Creatinine (0.66-1.25) mg/dL Glucose (74-99) mg/dL POC Glucose (mg/dL) (75-99) mg/dL Plasma Lactic Acid Tan (0.7-2.0) mmol/L Calcium (8.4-10.2) mg/dL Alkaline Phosphatase (38-126) U/L Troponin I 0.899 H* (0.000-0.034) ng/mL Total Protein (6.3-8.2) g/dL Albumin (3.5-5.0) g/dL HDL Cholesterol (40-60) mg/dL Ur Specific [place] (1.001-1.035) Urine Protein (Negative) Urine Glucose (UA) (Negative) Urine Ketones (Negative) Urine Blood (Negative) Amorphous Sediment (None) /hpf Urine Mucus (None) /hpf Crossmatch See Detail 09/01/18 09/01/18 09/02/18 Range/Units 20:50 22:45 02:03 RBC 3.13 L (4.30-5.90) m/uL Hgb 7.2 L (13.0-17.5) gm/dL Hct 23.9 L (39.0-53.0) % MCV 76.4 L (80.0-100.0) fL MCH 22.9 L (25.0-35.0) pg MCHC 30.0 L (31.0-37.0) g/dL RDW 17.3 H (11.5-15.5) % Plt Count (150-450) k/uL Neutrophils # (1.3-7.7) k/uL Lymphocytes # (1.0-4.8) k/uL Lymphocytes # (Manual) (1.0-4.8) k/uL APTT (22.0-30.0) sec Sodium (137-145) mmol/L Carbon Dioxide (22-30) mmol/L BUN (9-20) mg/dL Creatinine (0.66-1.25) mg/dL Glucose (74-99) mg/dL POC Glucose (mg/dL) 147 H (75-99) mg/dL Plasma Lactic Acid Tan (0.7-2.0) mmol/L Calcium (8.4-10.2) mg/dL Alkaline Phosphatase (38-126) U/L Troponin I 1.100 H* (0.000-0.034) ng/mL Total Protein (6.3-8.2) g/dL Albumin (3.5-5.0) g/dL HDL Cholesterol (40-60) mg/dL Ur Specific [place] (1.001-1.035) Urine Protein (Negative) Urine Glucose (UA) (Negative) Urine Ketones (Negative) Urine Blood (Negative) Amorphous Sediment (None) /hpf Urine Mucus (None) /hpf Crossmatch 09/02/18 09/02/18 09/02/18 Range/Units 03:39 06:00 07:02 RBC (4.30-5.90) m/uL Hgb (13.0-17.5) gm/dL Hct (39.0-53.0) % MCV (80.0-100.0) fL MCH (25.0-35.0) pg MCHC (31.0-37.0) g/dL RDW (11.5-15.5) % Plt Count (150-450) k/uL Neutrophils # (1.3-7.7) k/uL Lymphocytes # (1.0-4.8) k/uL Lymphocytes # (Manual) (1.0-4.8) k/uL APTT (22.0-30.0) sec Sodium (137-145) mmol/L Carbon Dioxide 21 L (22-30) mmol/L BUN 22 H (9-20) mg/dL Creatinine 0.44 L (0.66-1.25) mg/dL Glucose 108 H (74-99) mg/dL POC Glucose (mg/dL) 114 H (75-99) mg/dL Plasma Lactic Acid Tan (0.7-2.0) mmol/L Calcium 8.0 L (8.4-10.2) mg/dL Alkaline Phosphatase 252 H (38-126) U/L Troponin I (0.000-0.034) ng/mL Total Protein 5.1 L (6.3-8.2) g/dL Albumin 2.6 L (3.5-5.0) g/dL HDL Cholesterol 32 L (40-60) mg/dL Ur Specific [place] >1.050 H (1.001-1.035) Urine Protein 1+ H (Negative) Urine Glucose (UA) Trace H (Negative) Urine Ketones 1+ H (Negative) Urine Blood Small H (Negative) Amorphous Sediment Rare H (None) /hpf Urine Mucus Many H (None) /hpf Crossmatch 09/02/18 Range/Units 07:02 RBC 3.50 L (4.30-5.90) m/uL Hgb 8.1 L (13.0-17.5) gm/dL Hct 27.3 L (39.0-53.0) % MCV 78.1 L (80.0-100.0) fL MCH 23.0 L (25.0-35.0) pg MCHC 29.5 L (31.0-37.0) g/dL RDW 17.4 H (11.5-15.5) % Plt Count (150-450) k/uL Neutrophils # 8.4 H (1.3-7.7) k/uL Lymphocytes # 0.9 L (1.0-4.8) k/uL Lymphocytes # (Manual) (1.0-4.8) k/uL APTT (22.0-30.0) sec Sodium (137-145) mmol/L Carbon Dioxide (22-30) mmol/L BUN (9-20) mg/dL Creatinine (0.66-1.25) mg/dL Glucose (74-99) mg/dL POC Glucose (mg/dL) (75-99) mg/dL Plasma Lactic Acid Tan (0.7-2.0) mmol/L Calcium (8.4-10.2) mg/dL Alkaline Phosphatase (38-126) U/L Troponin I (0.000-0.034) ng/mL Total Protein (6.3-8.2) g/dL Albumin (3.5-5.0) g/dL HDL Cholesterol (40-60) mg/dL Ur Specific [place] (1.001-1.035) Urine Protein (Negative) Urine Glucose (UA) (Negative) Urine Ketones (Negative) Urine Blood (Negative) Amorphous Sediment (None) /hpf Urine Mucus (None) /hpf Crossmatch CT scan - abdomen: report reviewed (Dr. Ambrosio) Assessment and Plan (1) GI bleed Narrative/Plan: 68-year-old male recently diagnosed with stage IV pancreatic cancer recent chemotherapy presents with blood tinged bowel movements as well as elevated troponin consistent with non-ST elevated UT. CT cannot rule out necrotizing infiltrative pancreatic head tumor into the duodenum. Current Visit: Yes Status: Acute Code(s): K92.2 - GASTROINTESTINAL HEMORRHAGE, UNSPECIFIED SNOMED Code(s): 59487639 (2) Metastasis from pancreatic cancer Current Visit: Yes Status: Acute Code(s): C79.9 - SECONDARY MALIGNANT NEOP LASM OF UNSPECIFIED SITE; C25.9 - MALIGNANT NEOPLASM OF PANCREAS, UNSPECIFIED SNOMED Code(s): 645826105 (3) Acute blood loss anemia Narrative/Plan: Component of iron deficiency as well as from malignancy Current Visit: Yes Status: Acute Code(s): D62 - ACUTE POSTHEMORRHAGIC ANEMIA SNOMED Code(s): 858684403 (4) Non-STEMI (non-ST elevated myocardial infarction) Current Visit: Yes Status: Acute Code(s): I21.4 - NON-ST ELEVATION (NSTEMI) MYOCARDIAL INFARCTION SNOMED Code(s): 12216911 Plan: 1. Nothing by mouth except medications. CBC monitoring. Protonix 40 mg twice daily. EGD evaluation if agreeable with cardiology will obtain clearance. The complaints coordinator has discussed the risks, benefits and alternative therapies for the above-mentioned procedure and for both sedation/analgesia as well as necessary blood product administration, if indicated, as they pertain to this patient. The patient has indicated understanding and acceptance of the risks and procedures discussed.t Thank you for this kind referral and the opportunity to participate in the care of your patient. This consultation was discussed with Dr. Ambrosio. The impression and plan of care have been directed as dictated.
[2018-09-02] MEDS: ASPIRIN 81 MG PO SCH (10:09)
[2018-09-02] MEDS: METOPROLOL TARTRATE 12.5 MG TAB PO SCH ×2 (10:15→22:08)
[2018-09-02] MEDS: HYDROcodone/APAP 10-325MG 1 EACH TAB PO SCH ×4 (10:15→22:09)
[2018-09-02] MEDS: SODIUM FERRIC GLUCONAT-SUCROSE 125 MG in SODIUM CHLORIDE 0.9% 100 ML IVPB SCH (10:18)
[2018-09-02 11:56] LABS: Glucose,Whole Blood 125 mg/dL (75-99)
[2018-09-02] MEDS ORDERED: PROPOFOL 10 MG/ML 20 ML VIAL IV ONE (13:39)
[2018-09-02] MEDS ORDERED: IV FLUID CONTINUATION 1,000 ML IV ONE (13:56)
--- NOTE | 2018-09-02 14:10 | P.PCN ---
Date of Procedure: 09/02/18 Description of Procedure: BRIEF HISTORY: 68-year-old gentleman recently diagnosed with stage IV pancreatic cancer June 2018 recent chemotherapy 1 week ago admitted with weakness loose blood- tinged stool non-Q-wave [place] type II. Patient passed grossly bloody bowel movement last night followed by 2 smaller ones this morning. No history of EGD colonoscopy. Cologard testing 2 months ago was negative. No history of peptic ulcer disease NSAIDs alcohol. Takes a baby aspirin daily. Minimal abdominal discomfort. No emesis. CT abdomen and pelvis reported enlarging necrotic pancreatic head mass infiltration into the duodenum was difficult to exclude. Pancreatic head tumor measuring 6.27.4 cm. Increased number and size of hepatic lesions noted throughout hepatic segments with dilation of the gallbladder. PROCEDURE PERFORMED: Esophagogastroduodenoscopy with biopsy. PREOPERATIVE DIAGNOSIS: Abnormal computed tomography scan, anemia. ESTIMATED BLOOD LOSS: Minimal. IV sedation per anesthesia. PROCEDURE: After informed consent was obtained, the patient was brought into the endoscopy unit. IV sedation was administered by Anesthesia under continuous monitoring. Initially the Olympus GIF-190 video endoscope was inserted into the mouth. Esophagus intubated without any difficulty. It was gradually advanced into the stomach and duodenum and carefully examined. The bulb and the second part of the duodenum appeared normal, however in the third portion of the duodenum there was a nonobstructing mucosal mass with ulceration suggestive of tumor ingrowth from the patient's known pancreatic cancer, with biopsies of the duodenal mass taken. The scope at this time was withdrawn to the stomach, adequately insufflated with air, and upon careful examination, mucosa of the antrum, body, cardia and the fundus were significant for mild erythema predominately in the antrum and body consistent with mild gastritis with biopsies taken of the antrum and body. The scope was then withdrawn into the esophagus. The GE junction was located at 39 cm from the incisors. The esophagus appeared normal. There were no erosions or ulcerations seen and the patient tolerated the procedure well. IMPRESSION: 1. Mass in the duodenum with ulceration, concerning for infiltrating pancreatic cancer with biopsies taken. 2. Gastritis, antrum and body biopsied. RECOMMENDATIONS: The findings of this examination were discussed with the patient. With attempts to reach the oncology team to explain the findings. Concern is for infiltrating pancreatic cancer. We'll keep the patient nothing by mouth at this time. Patient may benefit from surgical consultation. Await pathology from biopsies.
--- NOTE | 2018-09-02 14:43 | P.PN ---
Subjective Progress Note Date: 09/02/18 Principal diagnosis: Pancreatic cancer Mucocytis is largest complaint, not eating, vesicular lesions and scant thrush notes Objective - Vital Signs Vital signs: Vital Signs Temp 97.7 F 09/02/18 11:01 Pulse 82 09/02/18 11:01 Resp 18 09/02/18 11:01 BP 120/72 09/02/18 11:01 Pulse Ox 96 09/02/18 11:01 Intake & Output 09/01/18 09/02/18 09/02/18 18:59 06:59 18:59 Intake Total 453 704 8654 Output Total 200 Balance 380 280 3164 Weight 90.718 kg 81.9 kg Intake: IV 200 Intake, IV Titration 1000 Amount Lactated Ringers 1,000 ml 1000 @ 125 mls/hr IV .Q8H [facility] Rx#:[id number] Blood Product 310 310 Rc As-1 Unit 310 [id number] Rc Pheresis 2 As3 Unit 310 [id number] Output: Urine 200 Other: Voiding Method Bedside Commode # Voids 1 # Bowel Movements 2 1 - Exam Gen: NAD, Head: NC Neck: Supple Thrush, erythema Lungs: Diminished Bibasilar, no increased effort Abdomen: Tender, mild distention Heart: Tachy Reg Ext NO edema Neuro: NO sensory or motor deficits - Labs CBC & Chem 7: 09/02/18 07:02 09/02/18 07:02 Labs: Abnormal Lab Results - Last 24 Hours (Table) 09/01/18 09/01/18 09/01/18 Range/Units 12:25 17:34 17:37 RBC 3.28 L (4.30-5.90) m/uL Hgb 7.3 L (13.0-17.5) gm/dL Hct 24.3 L (39.0-53.0) % MCV 74.1 L (80.0-100.0) fL MCH 22.4 L (25.0-35.0) pg MCHC 30.2 L (31.0-37.0) g/dL RDW 17.0 H (11.5-15.5) % Neutrophils # (1.3-7.7) k/uL Lymphocytes # 0.6 L (1.0-4.8) k/uL Carbon Dioxide (22-30) mmol/L BUN (9-20) mg/dL Creatinine (0.66-1.25) mg/dL Glucose (74-99) mg/dL POC Glucose (mg/dL) (75-99) mg/dL Calcium (8.4-10.2) mg/dL Alkaline Phosphatase (38-126) U/L Troponin I 0.899 H* (0.000-0.034) ng/mL Total Protein (6.3-8.2) g/dL Albumin (3.5-5.0) g/dL HDL Cholesterol (40-60) mg/dL Ur Specific [place] (1.001-1.035) Urine Protein (Negative) Urine Glucose (UA) (Negative) Urine Ketones (Negative) Urine Blood (Negative) Amorphous Sediment (None) /hpf Urine Mucus (None) /hpf Crossmatch See Detail 09/01/18 09/01/18 09/02/18 Range/Units 20:50 22:45 02:03 RBC 3.13 L (4.30-5.90) m/uL Hgb 7.2 L (13.0-17.5) gm/dL Hct 23.9 L (39.0-53.0) % MCV 76.4 L (80.0-100.0) fL MCH 22.9 L (25.0-35.0) pg MCHC 30.0 L (31.0-37.0) g/dL RDW 17.3 H (11.5-15.5) % Neutrophils # (1.3-7.7) k/uL Lymphocytes # (1.0-4.8) k/uL Carbon Dioxide (22-30) mmol/L BUN (9-20) mg/dL Creatinine (0.66-1.25) mg/dL Glucose (74-99) mg/dL POC Glucose (mg/dL) 147 H (75-99) mg/dL Calcium (8.4-10.2) mg/dL Alkaline Phosphatase (38-126) U/L Troponin I 1.100 H* (0.000-0.034) ng/mL Total Protein (6.3-8.2) g/dL Albumin (3.5-5.0) g/dL HDL Cholesterol (40-60) mg/dL Ur Specific [place] (1.001-1.035) Urine Protein (Negative) Urine Glucose (UA) (Negative) Urine Ketones (Negative) Urine Blood (Negative) Amorphous Sediment (None) /hpf Urine Mucus (None) /hpf Crossmatch 09/02/18 09/02/18 09/02/18 Range/Units 03:39 06:00 07:02 RBC (4.30-5.90) m/uL Hgb (13.0-17.5) gm/dL Hct (39.0-53.0) % MCV (80.0-100.0) fL MCH (25.0-35.0) pg MCHC (31.0-37.0) g/dL RDW (11.5-15.5) % Neutrophils # (1.3-7.7) k/uL Lymphocytes # (1.0-4.8) k/uL Carbon Dioxide 21 L (22-30) mmol/L BUN 22 H (9-20) mg/dL Creatinine 0.44 L (0.66-1.25) mg/dL Glucose 108 H (74-99) mg/dL POC Glucose (mg/dL) 114 H (75-99) mg/dL Calcium 8.0 L (8.4-10.2) mg/dL Alkaline Phosphatase 252 H (38-126) U/L Troponin I (0.000-0.034) ng/mL Total Protein 5.1 L (6.3-8.2) g/dL Albumin 2.6 L (3.5-5.0) g/dL HDL Cholesterol 32 L (40-60) mg/dL Ur Specific [place] >1.050 H (1.001-1.035) Urine Protein 1+ H (Negative) Urine Glucose (UA) Trace H (Negative) Urine Ketones 1+ H (Negative) Urine Blood Small H (Negative) Amorphous Sediment Rare H (None) /hpf Urine Mucus Many H (None) /hpf Crossmatch 09/02/18 09/02/18 Range/Units 07:02 11:33 RBC 3.50 L (4.30-5.90) m/uL Hgb 8.1 L (13.0-17.5) gm/dL Hct 27.3 L (39.0-53.0) % MCV 78.1 L (80.0-100.0) fL MCH 23.0 L (25.0-35.0) pg MCHC 29.5 L (31.0-37.0) g/dL RDW 17.4 H (11.5-15.5) % Neutrophils # 8.4 H (1.3-7.7) k/uL Lymphocytes # 0.9 L (1.0-4.8) k/uL Carbon Dioxide (22-30) mmol/L BUN (9-20) mg/dL Creatinine (0.66-1.25) mg/dL Glucose (74-99) mg/dL POC Glucose (mg/dL) 125 H (75-99) mg/dL Calcium (8.4-10.2) mg/dL Alkaline Phosphatase (38-126) U/L Troponin I (0.000-0.034) ng/mL Total Protein (6.3-8.2) g/dL Albumin (3.5-5.0) g/dL HDL Cholesterol (40-60) mg/dL Ur Specific [place] (1.001-1.035) Urine Protein (Negative) Urine Glucose (UA) (Negative) Urine Ketones (Negative) Urine Blood (Negative) Amorphous Sediment (None) /hpf Urine Mucus (None) /hpf Crossmatch Microbiology - Last 24 Hours (Table) 09/02/18 00:23 Stool Culture - Preliminary Stool Assessment and Plan Plan: Assessment and Recommendations: 1. Fall out of Bathtub: after large BM - SUffering from constipation then Diarrhea, incredibly weak with not eating or moving around. 2. Metastatic Pancreatic Cancer: - Status Post one treatment with Gemzar and Abraxane 3. Chronic Illness Myopathy and debility: - PT/OT Evaluation and treatment please, benefoit from home PT/OT after discharge 4. Microcytic Anemia: Malignancy and component of iron deficiency anemia - IV Parental Iron has been ordered as outpatient, ok to give a dose her in hospital will order - MOnitor Daily CBC 5. Mucocytis: - Add Dex Liquid QID - Acyclovir and Diflucan
[2018-09-02] MEDS ORDERED: DEXAMETHASONE 2 MG TAB PO SCH (14:45)
[2018-09-02] MEDS: ACYCLOVIR SODIUM 500 MG in SODIUM CHLORIDE 0.9% 100 ML IVPB SCH ×2 (17:03→22:44)
[2018-09-02 17:08] LABS: Glucose,Whole Blood 120 mg/dL (75-99)
--- NOTE | 2018-09-02 17:26 | P.PN ---
Subjective Patient is doing better. He still has no chest discomfort. However was weakness is a lot better He is lying comfortably in bed no respiratory distress Blood pressure 120/72 mmHg respirations 18 nonlabored pulse rate in the 80s afebrile Heart sounds S1 and S2 are soft and murmurs or gallops Breath sounds are clear Abdomen soft Impression Patient presented with weakness with abnormal cardiac enzymes and ST depressions in the precordial leads associated with hypotension and severe anemia He has received packed red cells His hemoglobin is 8.1 Suggest Continue treatment for stage IV pancreatic carcinoma with metastasis to the liver Conservative approach to any coronary artery disease, continue 81 mg of aspirin and atorvastatin 80 mg by mouth daily Continue low-dose beta blockers Stop Nitropaste Objective - Vital Signs Vital signs: Vital Signs Temp 98.1 F 09/02/18 16:59 Pulse 106 H 09/02/18 16:59 Resp 18 09/02/18 16:59 BP 106/75 09/02/18 16:59 Pulse Ox 99 09/02/18 16:59 Intake & Output 09/01/18 09/02/18 09/02/18 18:59 06:59 18:59 Intake Total 273 394 5303 Output Total 200 Balance 774 478 8285 Weight 90.718 kg 81.9 kg Intake: IV 200 Intake, IV Titration 1000 Amount Lactated Ringers 1,000 ml 1000 @ 125 mls/hr IV .Q8H [facility] Rx#:[id number] Blood Product 310 310 Rc As-1 Unit 310 [id number] Rc Pheresis 2 As3 Unit 310 [id number] Output: Urine 200 Other: Voiding Method Bedside Commode # Voids 1 # Bowel Movements 2 3 - Labs CBC & Chem 7: 09/02/18 07:02 09/02/18 07:02 Labs: Abnormal Lab Results - Last 24 Hours (Table) 09/01/18 09/01/18 09/01/18 Range/Units 12:25 17:34 17:37 RBC 3.28 L (4.30-5.90) m/uL Hgb 7.3 L (13.0-17.5) gm/dL Hct 24.3 L (39.0-53.0) % MCV 74.1 L (80.0-100.0) fL MCH 22.4 L (25.0-35.0) pg MCHC 30.2 L (31.0-37.0) g/dL RDW 17.0 H (11.5-15.5) % Neutrophils # (1.3-7.7) k/uL Lymphocytes # 0.6 L (1.0-4.8) k/uL Carbon Dioxide (22-30) mmol/L BUN (9-20) mg/dL Creatinine (0.66-1.25) mg/dL Glucose (74-99) mg/dL POC Glucose (mg/dL) (75-99) mg/dL Calcium (8.4-10.2) mg/dL Alkaline Phosphatase (38-126) U/L Troponin I 0.899 H* (0.000-0.034) ng/mL Total Protein (6.3-8.2) g/dL Albumin (3.5-5.0) g/dL HDL Cholesterol (40-60) mg/dL Ur Specific [place] (1.001-1.035) Urine Protein (Negative) Urine Glucose (UA) (Negative) Urine Ketones (Negative) Urine Blood (Negative) Amorphous Sediment (None) /hpf Urine Mucus (None) /hpf Crossmatch See Detail 09/01/18 09/01/18 09/02/18 Range/Units 20:50 22:45 02:03 RBC 3.13 L (4.30-5.90) m/uL Hgb 7.2 L (13.0-17.5) gm/dL Hct 23.9 L (39.0-53.0) % MCV 76.4 L (80.0-100.0) fL MCH 22.9 L (25.0-35.0) pg MCHC 30.0 L (31.0-37.0) g/dL RDW 17.3 H (11.5-15.5) % Neutrophils # (1.3-7.7) k/uL Lymphocytes # (1.0-4.8) k/uL Carbon Dioxide (22-30) mmol/L BUN (9-20) mg/dL Creatinine (0.66-1.25) mg/dL Glucose (74-99) mg/dL POC Glucose (mg/dL) 147 H (75-99) mg/dL Calcium (8.4-10.2) mg/dL Alkaline Phosphatase (38-126) U/L Troponin I 1.100 H* (0.000-0.034) ng/mL Total Protein (6.3-8.2) g/dL Albumin (3.5-5.0) g/dL HDL Cholesterol (40-60) mg/dL Ur Specific [place] (1.001-1.035) Urine Protein (Negative) Urine Glucose (UA) (Negative) Urine Ketones (Negative) Urine Blood (Negative) Amorphous Sediment (None) /hpf Urine Mucus (None) /hpf Crossmatch 09/02/18 09/02/18 09/02/18 Range/Units 03:39 06:00 07:02 RBC (4.30-5.90) m/uL Hgb (13.0-17.5) gm/dL Hct (39.0-53.0) % MCV (80.0-100.0) fL MCH (25.0-35.0) pg MCHC (31.0-37.0) g/dL RDW (11.5-15.5) % Neutrophils # (1.3-7.7) k/uL Lymphocytes # (1.0-4.8) k/uL Carbon Dioxide 21 L (22-30) mmol/L BUN 22 H (9-20) mg/dL Creatinine 0.44 L (0.66-1.25) mg/dL Glucose 108 H (74-99) mg/dL POC Glucose (mg/dL) 114 H (75-99) mg/dL Calcium 8.0 L (8.4-10.2) mg/dL Alkaline Phosphatase 252 H (38-126) U/L Troponin I (0.000-0.034) ng/mL Total Protein 5.1 L (6.3-8.2) g/dL Albumin 2.6 L (3.5-5.0) g/dL HDL Cholesterol 32 L (40-60) mg/dL Ur Specific [place] >1.050 H (1.001-1.035) Urine Protein 1+ H (Negative) Urine Glucose (UA) Trace H (Negative) Urine Ketones 1+ H (Negative) Urine Blood Small H (Negative) Amorphous Sediment Rare H (None) /hpf Urine Mucus Many H (None) /hpf Crossmatch 09/02/18 09/02/18 09/02/18 Range/Units 07:02 11:33 17:01 RBC 3.50 L (4.30-5.90) m/uL Hgb 8.1 L (13.0-17.5) gm/dL Hct 27.3 L (39.0-53.0) % MCV 78.1 L (80.0-100.0) fL MCH 23.0 L (25.0-35.0) pg MCHC 29.5 L (31.0-37.0) g/dL RDW 17.4 H (11.5-15.5) % Neutrophils # 8.4 H (1.3-7.7) k/uL Lymphocytes # 0.9 L (1.0-4.8) k/uL Carbon Dioxide (22-30) mmol/L BUN (9-20) mg/dL Creatinine (0.66-1.25) mg/dL Glucose (74-99) mg/dL POC Glucose (mg/dL) 125 H 120 H (75-99) mg/dL Calcium (8.4-10.2) mg/dL Alkaline Phosphatase (38-126) U/L Troponin I (0.000-0.034) ng/mL Total Protein (6.3-8.2) g/dL Albumin (3.5-5.0) g/dL HDL Cholesterol (40-60) mg/dL Ur Specific [place] (1.001-1.035) Urine Protein (Negative) Urine Glucose (UA) (Negative) Urine Ketones (Negative) Urine Blood (Negative) Amorphous Sediment (None) /hpf Urine Mucus (None) /hpf Crossmatch Microbiology - Last 24 Hours (Table) 09/02/18 00:23 Stool Culture - Preliminary Stool
[2018-09-02] MEDS: LOPERAMIDE 2 MG CAP PO PRN (17:32)
[2018-09-02] MEDS: FOLIC ACID 1 MG TAB PO SCH (17:32)
[2018-09-02] MEDS: FLUCONAZOLE 100 MG TAB PO SCH (17:33)
[2018-09-02] MEDS: ATORVASTATIN 80 MG TAB PO SCH (17:33)
[2018-09-02] MEDS: CYANOCOBALAMIN 500 MCG TAB PO SCH (17:33)
[2018-09-02] MEDS: MAG HYDROX/AL HYDROX/SIMETH 30 ML, diphenhydrAMINE ELIXIR 75 MG, LIDOCAINE VISCOUS 30 M... PO SCH ×8 (17:34→22:07)
[2018-09-02 18:36] LABS: Anisocytosis Slight; HCT 25.7 % (39.0-53.0); Hypochromasia Marked; MCH 24.1 pg (25.0-35.0); MCHC 30.9 g/dL (31.0-37.0); Mean Platelet Volume 7.4; Microcytosis Slight; Platelet Count 227 k/uL (150-450); Poikilocytosis Moderate; RDW 16.8 % (11.5-15.5); WBC 10.9 k/uL (3.8-10.6)
[2018-09-02 21:18] LABS: Glucose,Whole Blood 112 mg/dL (75-99)
[2018-09-02] MEDS: ALPRAZolam 0.25 MG TAB PO PRN (22:35)
[2018-09-03 03:01] LABS: Anisocytosis Slight; HCT 25.1 % (39.0-53.0); HGB 7.7 gm/dL (13.0-17.5); Hypochromasia Marked; MCH 24.1 pg (25.0-35.0); MCHC 30.7 g/dL (31.0-37.0); MCV 78.7 fL (80.0-100.0); Microcytosis Slight; Platelet Count 235 k/uL (150-450); Poikilocytosis Moderate; RBC 3.19 m/uL (4.30-5.90); RDW 16.9 % (11.5-15.5)
--- NOTE | 2018-09-03 05:29 | PN ---
PROGRESS NOTE DATE OF SERVICE: 09/02/2018 PRESENTING COMPLAINT: GI bleed. INTERVAL HISTORY: This patient with metastatic pancreatic cancer presented with bloody bowel movements. I saw the patient today before he had gone down for the EGD. Later patient was reported to have a duodenal mass with ulceration, likely the source of bleeding. The patient did have a small bowel movement this morning. was at at the bedside. REVIEW OF SYSTEMS: Done for constitutional, cardiovascular, GI, pulmonary; relevant findings as above. CURRENT MEDICATIONS: Current medications are reviewed include IV acyclovir, Diflucan, Lopressor, etc. PHYSICAL EXAMINATION: On examination, temperature is 98.3 pulse 82, respiration 16, blood pressure 112/74, pulse ox 98% on room air. GENERAL APPEARANCE: Lying in bed, tired appearing. EYES: Pupils equal. Conjunctivae pale. NECK: JVD not raised. Mass not palpable. RESPIRATORY: Effort normal. LUNGS: Decreased breath sounds. CARDIOVASCULAR: First and second sounds normal. No edema. ABDOMEN: Soft, nontender. Liver and spleen not palpable. PSYCHIATRY: Alert and oriented x3. Mood and affect tired appearing. INVESTIGATIONS: White count 10.9, hemoglobin 8. Accu-Cheks are noted. ASSESSMENT: 1. Acute non-Q-wave myocardial infarction, not a candidate for any antiplatelet agents. 2. Acute upper gastrointestinal bleed from ulcerated duodenal mass, probably from pancreatic cancer. 3. Metastatic pancreatic cancer with a large necrotic mass in the pancreatic head with metastasis to the liver. 4. Anxiety, not otherwise specified. 5. Acute blood loss anemia, status post blood transfusion. 6. Microcytic anemia both from malignancy and from gastrointestinal bleed. 7. Moderate protein-calorie malnutrition from decreased oral intake. 8. Medical debility from underlying malignancy. PLAN: The patient's overall prognosis is not good. We will get surgical input. Await further input from Oncology. The patient may need palliative surgery and this may have to be done at a outside center. We will decide after patient has been seen by Surgery and Oncology. Prognosis is guarded. MMODL / IJN: [id number] /
[2018-09-03] MEDS: CHOLESTYRAMINE (WITH SUGAR) 4 GM PACKET PO SCH ×4 (06:04→20:42)
[2018-09-03] MEDS: LIPASE 5,000/PROTEASE 17,000/AMYLASE 24,000 PO SCH ×6 (06:04→20:44)
[2018-09-03] MEDS: MAG HYDROX/AL HYDROX/SIMETH 30 ML, diphenhydrAMINE ELIXIR 75 MG, LIDOCAINE VISCOUS 30 M... PO SCH ×16 (06:07→20:46)
[2018-09-03] MEDS: LACTATED RINGERS 1,000 ML IV SCH ×3 (06:07→17:26)
[2018-09-03 06:16] LABS: Glucose,Whole Blood 108 mg/dL (75-99)
[2018-09-03 06:50] LABS: Anisocytosis Slight; Basophils % (A) 0 %; Eosinophils # (A) 0.5 k/uL (0-0.7); Eosinophils % (A) 4 %; HCT 27.2 % (39.0-53.0); HGB 8.3 gm/dL (13.0-17.5); Hypochromasia Marked; Lymphocytes % (A) 7 %; MCH 23.9 pg (25.0-35.0); MCHC 30.5 g/dL (31.0-37.0); MCV 78.3 fL (80.0-100.0); Mean Platelet Volume 6.9; Microcytosis Slight; Monocytes # (A) 0.5 k/uL (0-1.0); Monocytes % (A) 4 %; Neutrophils # (A) 11.4 k/uL (1.3-7.7); Neutrophils % (A) 84 %; Platelet Count 259 k/uL (150-450); Poikilocytosis Moderate; RBC 3.47 m/uL (4.30-5.90); RDW 17.2 % (11.5-15.5); WBC 13.6 k/uL (3.8-10.6)
[2018-09-03 07:09] LABS: Anion Gap 9 mmol/L; Blood Urea Nitrogen 19 mg/dL (9-20); Calcium 8.1 mg/dL (8.4-10.2); Carbon Dioxide 21 mmol/L (22-30); Chloride 108 mmol/L (98-107); Glucose 97 mg/dL (74-99); Potassium 4.1 mmol/L (3.5-5.1); Sodium 138 mmol/L (137-145)
[2018-09-03] MEDS: HYDROcodone/APAP 10-325MG 1 EACH TAB PO SCH ×4 (09:21→20:44)
[2018-09-03] MEDS: CYANOCOBALAMIN 500 MCG TAB PO SCH (09:21)
[2018-09-03] MEDS: ACYCLOVIR SODIUM 500 MG in SODIUM CHLORIDE 0.9% 100 ML IVPB SCH ×3 (09:21→23:08)
[2018-09-03] MEDS: FLUCONAZOLE 100 MG TAB PO SCH (09:22)
[2018-09-03] MEDS: ASPIRIN 81 MG PO SCH (09:22)
[2018-09-03] MEDS: ATORVASTATIN 80 MG TAB PO SCH (09:22)
[2018-09-03] MEDS: METOPROLOL TARTRATE 12.5 MG TAB PO SCH ×2 (09:22→20:44)
--- NOTE | 2018-09-03 11:59 | P.PN ---
Subjective Progress Note Date: 09/03/18 Principal diagnosis: GI bleed history of pancreatic cancer Status post EGD yesterday with findings of suspected infiltrating pancreatic tumor into the duodenum biopsies taken. No further bleeding per patient. Hemoglobin 8.3. Requesting diet advancement. Denies abdominal pain. Objective - Vital Signs Vital signs: Vital Signs Temp 98.0 F 09/03/18 04:00 Pulse 79 09/03/18 08:00 Resp 18 09/03/18 08:00 BP 127/81 09/03/18 08:00 Pulse Ox 97 09/03/18 08:00 Intake & Output 09/02/18 09/03/18 09/03/18 18:59 06:59 18:59 Intake Total 1800 1000 Output Total 600 Balance 1800 400 Weight 81.9 kg 83.4 kg Intake: IV 200 1000 0.9 1000 Intake, IV Titration 1000 Amount Lactated Ringers 1,000 ml 1000 @ 125 mls/hr IV .Q8H [facility] Rx#:[id number] Oral 600 Output: Urine 600 Other: Voiding Method Bedside Commode # Voids 1 # Bowel Movements 3 - Exam General appearance: The patient is alert, oriented, in no acute distress. HET: Head is normocephalic and atraumatic. Pupils are equal and reactive. Oropharynx is clear without lesions. Neck: Supple without lymphadenopathy. Trachea midline. Heart: S1 S2. Regular rate and rhythm. Lungs: No crackles or wheezes are heard. Abdomen: Soft, nontender, nondistended with bowel sounds. No peritoneal signs. No palpable organomegaly or masses. Extremities: Normal skin color and turgor. No cyanosis, rash, ulceration, clubbing, or edema. Radial and pedal pulses are 2/4 bilaterally. Neurological: No focal deficits. Strength and sensation are grossly intact. - Labs CBC & Chem 7: 09/03/18 06:26 09/03/18 06:26 Labs: Abnormal Lab Results - Last 24 Hours (Table) 09/02/18 09/02/18 09/02/18 Range/Units 17:01 17:52 21:16 WBC 10.9 H (3.8-10.6) k/uL RBC 3.30 L (4.30-5.90) m/uL Hgb 8.0 L (13.0-17.5) gm/dL Hct 25.7 L (39.0-53.0) % MCV 78.0 L (80.0-100.0) fL MCH 24.1 L (25.0-35.0) pg MCHC 30.9 L (31.0-37.0) g/dL RDW 16.8 H (11.5-15.5) % Neutrophils # (1.3-7.7) k/uL Chloride (98-107) mmol/L Carbon Dioxide (22-30) mmol/L Creatinine (0.66-1.25) mg/dL POC Glucose (mg/dL) 120 H 112 H (75-99) mg/dL Calcium (8.4-10.2) mg/dL 09/03/18 09/03/18 09/03/18 Range/Units 02:13 06:14 06:26 WBC 12.0 H 13.6 H (3.8-10.6) k/uL RBC 3.19 L 3.47 L (4.30-5.90) m/uL Hgb 7.7 L 8.3 L (13.0-17.5) gm/dL Hct 25.1 L 27.2 L (39.0-53.0) % MCV 78.7 L 78.3 L (80.0-100.0) fL MCH 24.1 L 23.9 L (25.0-35.0) pg MCHC 30.7 L 30.5 L (31.0-37.0) g/dL RDW 16.9 H 17.2 H (11.5-15.5) % Neutrophils # 11.4 H (1.3-7.7) k/uL Chloride (98-107) mmol/L Carbon Dioxide (22-30) mmol/L Creatinine (0.66-1.25) mg/dL POC Glucose (mg/dL) 108 H (75-99) mg/dL Calcium (8.4-10.2) mg/dL 09/03/18 Range/Units 06:26 WBC (3.8-10.6) k/uL RBC (4.30-5.90) m/uL Hgb (13.0-17.5) gm/dL Hct (39.0-53.0) % MCV (80.0-100.0) fL MCH (25.0-35.0) pg MCHC (31.0-37.0) g/dL RDW (11.5-15.5) % Neutrophils # (1.3-7.7) k/uL Chloride 108 H (98-107) mmol/L Carbon Dioxide 21 L (22-30) mmol/L Creatinine 0.41 L (0.66-1.25) mg/dL POC Glucose (mg/dL) (75-99) mg/dL Calcium 8.1 L (8.4-10.2) mg/dL Microbiology - Last 24 Hours (Table) 09/02/18 02:03 Blood Culture - Preliminary Blood No Growth after 24 hours 09/02/18 00:23 Stool Culture - Preliminary Stool Assessment and Plan (1) GI bleed Narrative/Plan: Status post EGD with findings of suspected infiltrating pancreatic tumor into the duodenum biopsies taken. Current Visit: Yes Status: Acute Code(s): K92.2 - GASTROINTESTINAL HEMORRHAGE, UNSPECIFIED SNOMED Code(s): 32711146 (2) Metastasis from pancreatic cancer Current Visit: Yes Status: Acute Code(s): C79.9 - SECONDARY MALIGNANT NEOPLASM OF UNSPECIFIED SITE; C25.9 - MALIGNANT NEOPLASM OF PANCREAS, UNSPECIFIED SNOMED Code(s): 908990988 (3) Acute blood loss anemia Current Visit: Yes Status: Acute Code(s): D62 - ACUTE POSTHEMORRHAGIC ANEMIA SNOMED Code(s): 720241948 (4) Non-STEMI (non-ST elevated myocardial infarction) Current Visit: Yes Status: Acute Code(s): I21.4 - NON-ST ELEVATION (NSTEMI) MYOCARDIAL INFARCTION SNOMED Code(s): 89165215 Plan: 1. Diet as tolerated. Await biopsy reports. CBC monitoring. GI prophylaxis daily. We'll follow as needed. Assessment and plan a care discussed with Dr. Ambrosio
[2018-09-03 12:03] LABS: Glucose,Whole Blood 113 mg/dL (75-99)
[2018-09-03] MEDS: FOLIC ACID 1 MG TAB PO SCH (12:33)
[2018-09-03] MEDS: SODIUM FERRIC GLUCONAT-SUCROSE 125 MG in SODIUM CHLORIDE 0.9% 100 ML IVPB SCH (12:33)
--- NOTE | 2018-09-03 13:21 | P.PN ---
Subjective Progress Note Date: 09/03/18 Principal diagnosis: Pancreatic cancer Mucocytis is largest complaint, not eating, vesicular lesions and scant thrush notes He underwent EGD 09/02/18 - as expected findings suspected infiltrating pancreatic tumor into the duodenum no sixeable blood loss noted Objective - Vital Signs Vital signs: Vital Signs Temp 98.0 F 09/03/18 04:00 Pulse 79 09/03/18 08:00 Resp 18 09/03/18 08:00 BP 127/81 09/03/18 08:00 Pulse Ox 97 09/03/18 12:28 Intake & Output 09/02/18 09/03/18 09/03/18 18:59 06:59 18:59 Intake Total 1800 1000 Output Total 600 Balance 1800 400 Weight 81.9 kg 83.4 kg Intake: IV 200 1000 0.9 1000 Intake, IV Titration 1000 Amount Lactated Ringers 1,000 ml 1000 @ 125 mls/hr IV .Q8H [facility] Rx#:[id number] Oral 600 Output: Urine 600 Other: Voiding Method Bedside Commode # Voids 1 # Bowel Movements 3 - Exam Gen: NAD, Head: NC Neck: Supple Thrush, erythema Lungs: Diminished Bibasilar, no increased effort Abdomen: Tender, mild distention Heart: Tachy Reg Ext NO edema Neuro: NO sensory or motor deficits - Labs CBC & Chem 7: 09/04/18 07:26 09/04/18 07:26 Labs: Abnormal Lab Results - Last 24 Hours (Table) 09/02/18 09/02/18 09/02/18 Range/Units 17:01 17:52 21:16 WBC 10.9 H (3.8-10.6) k/uL RBC 3.30 L (4.30-5.90) m/uL Hgb 8.0 L (13.0-17.5) gm/dL Hct 25.7 L (39.0-53.0) % MCV 78.0 L (80.0-100.0) fL MCH 24.1 L (25.0-35.0) pg MCHC 30.9 L (31.0-37.0) g/dL RDW 16.8 H (11.5-15.5) % Neutrophils # (1.3-7.7) k/uL Chloride (98-107) mmol/L Carbon Dioxide (22-30) mmol/L Creatinine (0.66-1.25) mg/dL POC Glucose (mg/dL) 120 H 112 H (75-99) mg/dL Calcium (8.4-10.2) mg/dL 09/03/18 09/03/18 09/03/18 Range/Units 02:13 06:14 06:26 WBC 12.0 H 13.6 H (3.8-10.6) k/uL RBC 3.19 L 3.47 L (4.30-5.90) m/uL Hgb 7.7 L 8.3 L (13.0-17.5) gm/dL Hct 25.1 L 27.2 L (39.0-53.0) % MCV 78.7 L 78.3 L (80.0-100.0) fL MCH 24.1 L 23.9 L (25.0-35.0) pg MCHC 30.7 L 30.5 L (31.0-37.0) g/dL RDW 16.9 H 17.2 H (11.5-15.5) % Neutrophils # 11.4 H (1.3-7.7) k/uL Chloride (98-107) mmol/L Carbon Dioxide (22-30) mmol/L Creatinine (0.66-1.25) mg/dL POC Glucose (mg/dL) 108 H (75-99) mg/dL Calcium (8.4-10.2) mg/dL 09/03/18 09/03/18 Range/Units 06:26 11:16 WBC (3.8-10.6) k/uL RBC (4.30-5.90) m/uL Hgb (13.0-17.5) gm/dL Hct (39.0-53.0) % MCV (80.0-100.0) fL MCH (25.0-35.0) pg MCHC (31.0-37.0) g/dL RDW (11.5-15.5) % Neutrophils # (1.3-7.7) k/uL Chloride 108 H (98-107) mmol/L Carbon Dioxide 21 L (22-30) mmol/L Creatinine 0.41 L (0.66-1.25) mg/dL POC Glucose (mg/dL) 113 H (75-99) mg/dL Calcium 8.1 L (8.4-10.2) mg/dL Microbiology - Last 24 Hours (Table) 09/02/18 02:03 Blood Culture - Preliminary Blood No Growth after 24 hours 09/02/18 00:23 Stool Culture - Preliminary Stool Assessment and Plan Plan: Assessment and Recommendations: 1. Fall out of Bathtub: 2. Metastatic Pancreatic Cancer: - Status Post one treatment with Gemzar and Abraxane 3. Chronic Illness Myopathy and debility: - PT/OT Evaluation and treatment please, benefoit from home PT/OT after discharge 4. Microcytic Anemia: Malignancy and component of iron deficiency anemia - IV Parental Iron has been ordered as outpatient, ok to give a dose her in hospital will order - Status Post EGD - MOnitor Daily CBC 5. NSTEMI: Per primary and Cardiology Continue supportive care and Transfusion support PT/OT to continue as outpatient and in home to increase safety prevent and prevent further myopathy and debility Increase APpetite and PO intake Restart Chemo as outpatient Parental Iron not required at this time with elevated Ferritin Transfusion support wouls transuse with hemoglobin less than 7.5
[2018-09-03 14:03] LABS: Anisocytosis Slight; HCT 29.8 % (39.0-53.0); HGB 8.8 gm/dL (13.0-17.5); Hypochromasia Marked; MCH 23.7 pg (25.0-35.0); MCHC 29.5 g/dL (31.0-37.0); MCV 80.6 fL (80.0-100.0); Mean Platelet Volume 7.2; Platelet Count 296 k/uL (150-450); Poikilocytosis Moderate; RBC 3.69 m/uL (4.30-5.90); WBC 14.8 k/uL (3.8-10.6)
--- NOTE | 2018-09-03 14:22 | P.GSCN ---
History of Present Illness Consult date: 09/03/18 Reason for Consult: Duodenal mass with ulcer/bleeding Requesting physician: Cheko Rincon History of present illness: CHIEF COMPLAINT: Duodenal mass HISTORY OF PRESENT ILLNESS: A 68-year-old male with a history of stage IV pancreatic cancer who underwent EGD yesterday revealing mass in the duodenum with ulceration, concerning for infiltrating pancreatic cancer and gastritis. General surgery was consulted for further evaluation. Patient examined at the bedside with Dr. Aguero. Patient sitting up in the chair. Appears comfortabl e. Tolerating diet. Denies nausea or vomiting. PAST MEDICAL HISTORY: See list. PAST SURGICAL HISTORY: See list. SOCIAL HISTORY: No illicit drug use. REVIEW OF SYSTEMS: CONSTITUTIONAL: Denies fever or chills. HEENT: Denies blurred vision, vision changes, or eye pain. Denies hemoptysis CARDIOVASCULAR: Denies chest pain or pressure. RESPIRATORY: No shortness of breath. GASTROINTESTINAL: Refer to HPI for pertinent findings HEMATOLOGIC: Denies bleeding disorders. GENITOURINARY: Denies any blood in urine. SKIN: Denies pruitis. Denies rash. PHYSICAL EXAM: VITAL SIGNS: Reviewed. GENERAL: Well-developed in no acute distress. Thin. HEENT: No sclera icterus. Extraocular movements grossly intact. Moist buccal mucosa. Head is atraumatic, normocephalic. ABDOMEN: Soft. Nondistended. Nontender. NEUROLOGIC: Alert and oriented. Cranial nerves II through XII grossly intact. ASSESSMENT: 1. Metastatic pancreatic cancer, status post EGD revealing duodenal mass with ulceration concerning for infiltrating pancreatic cancer PLAN: No surgical intervention recommended per Dr. Aguero at this facility. Recommends surgical evaluation at tertiary care center. We will sign off. Please re-consult if needed. Nurse practitioner note has been reviewed by physician. Signing provider agrees with the documented findings, assessment, and plan of care. Past Medical History Past Medical History: Diabetes Mellitus Additional Past Medical History / Comment(s): stage 4 pancreatic cancer, last chemo 08/27, [facility] 08/18 History of Any Multi-Drug Resistant Organisms: None Reported Past Surgical History: No Surgical Hx Reported Past Psychological History: No Psychological Hx Reported Smoking Status: Former smoker Past Alcohol Use History: None Reported Past Drug Use History: None Reported - Past Family History Mother Additional Family Medical History / Comment(s): Lung Cancer at age 83 Father Family Medical History: CVA/TIA Medications and Allergies Home Medications Medication Instructions Recorded Confirmed Type Lovastatin [Mevacor] 40 mg PO HS 07/16/18 09/01/18 History ALPRAZolam [Xanax] 0.25 mg PO TID PRN 09/01/18 09/01/18 History Cholestyramine (with Sugar) 4 gm PO ACHS 09/01/18 09/01/18 History [Questran Packet] Cool's Solution 5 ml PO ACHS 09/01/18 09/01/18 History Cyanocobalamin (Vitamin B-12) 1,000 mcg PO DAILY 09/01/18 09/01/18 History [Vitamin B-12] Folic Acid 1 mg PO DAILY 09/01/18 09/01/18 History HYDROcodone/APAP 10-325MG [[place] 1 tab PO QID 09/01/18 09/01/18 History 10-325] Lipase/Protease/Amylase [Mary Ellen Gómez 24,000 units PO TID BETWEEN MEALS 09/01/18 09/01/18 History 24,000 Units Capsule] Lipase/Protease/Amylase [Mary Ellen Gómez 48,000 units PO TID-W/MEALS 09/01/18 09/01/18 History 24,000 Units Capsule] Allergies Allergy/AdvReac Type Severity Reaction Status Date / Time No Known Allergies Allergy Verified 07/16/18 20:33 Surgical - Exam Vital Signs Pulse Resp Pulse Ox 118 H 23 100 09/01/18 09:58 09/01/18 09:58 09/01/18 09:58 Results - Labs 09/03/18 12:31 09/03/18 06:26 Abnormal Lab Results - Last 24 Hours (Table) 09/02/18 09/02/18 09/02/18 Range/Units 17:01 17:52 21:16 WBC 10.9 H (3.8-10.6) k/uL RBC 3.30 L (4.30-5.90) m/uL Hgb 8.0 L (13.0-17.5) gm/dL Hct 25.7 L (39.0-53.0) % MCV 78.0 L (80.0-100.0) fL MCH 24.1 L (25.0-35.0) pg MCHC 30.9 L (31.0-37.0) g/dL RDW 16.8 H (11.5-15.5) % Neutrophils # (1.3-7.7) k/uL Chloride (98-107) mmol/L Carbon Dioxide (22-30) mmol/L Creatinine (0.66-1.25) mg/dL POC Glucose (mg/dL) 120 H 112 H (75-99) mg/dL Calcium (8.4-10.2) mg/dL 09/03/18 09/03/18 09/03/18 Range/Units 02:13 06:14 06:26 WBC 12.0 H 13.6 H (3.8-10.6) k/uL RBC 3.19 L 3.47 L (4.30-5.90) m/uL Hgb 7.7 L 8.3 L (13.0-17.5) gm/dL Hct 25.1 L 27.2 L (39.0-53.0) % MCV 78.7 L 78.3 L (80.0-100.0) fL MCH 24.1 L 23.9 L (25.0-35.0) pg MCHC 30.7 L 30.5 L (31.0-37.0) g/dL RDW 16.9 H 17.2 H (11.5-15.5) % Neutrophils # 11.4 H (1.3-7.7) k/uL Chloride (98-107) mmol/L Carbon Dioxide (22-30) mmol/L Creatinine (0.66-1.25) mg/dL POC Glucose (mg/dL) 108 H (75-99) mg/dL Calcium (8.4-10.2) mg/dL 09/03/18 09/03/18 09/03/18 Range/Units 06:26 11:16 12:31 WBC 14.8 H (3.8-10.6) k/uL RBC 3.69 L (4.30-5.90) m/uL Hgb 8.8 L (13.0-17.5) gm/dL Hct 29.8 L (39.0-53.0) % MCV (80.0-100.0) fL MCH 23.7 L (25.0-35.0) pg MCHC 29.5 L (31.0-37.0) g/dL RDW 17.0 H (11.5-15.5) % Neutrophils # (1.3-7.7) k/uL Chloride 108 H (98-107) mmol/L Carbon Dioxide 21 L (22-30) mmol/L Creatinine 0.41 L (0.66-1.25) mg/dL POC Glucose (mg/dL) 113 H (75-99) mg/dL Calcium 8.1 L (8.4-10.2) mg/dL Microbiology - Last 24 Hours (Table) 09/02/18 02:03 Blood Culture - Preliminary Blood No Growth after 24 hours 09/02/18 00:23 Stool Culture - Preliminary Stool Diabetes panel 09/03/18 Range/Units 06:26 Sodium 138 (137-145) mmol/L Potassium 4.1 (3.5-5.1) mmol/L Chloride 108 H (98-107) mmol/L Carbon Dioxide 21 L (22-30) mmol/L BUN 19 (9-20) mg/dL Creatinine 0.41 L (0.66-1.25) mg/dL Glucose 97 (74-99) mg/dL Calcium 8.1 L (8.4-10.2) mg/dL Calcium panel 09/03/18 Range/Units 06:26 Calcium 8.1 L (8.4-10.2) mg/dL Pituitary panel 09/03/18 Range/Units 06:26 Sodium 138 (137-145) mmol/L Potassium 4.1 (3.5-5.1) mmol/L Chloride 108 H (98-107) mmol/L Carbon Dioxide 21 L (22-30) mmol/L BUN 19 (9-20) mg/dL Creatinine 0.41 L (0.66-1.25) mg/dL Glucose 97 (74-99) mg/dL Calcium 8.1 L (8.4-10.2) mg/dL Adrenal panel 09/03/18 Range/Units 06:26 Sodium 138 (137-145) mmol/L Potassium 4.1 (3.5-5.1) mmol/L Chloride 108 H (98-107) mmol/L Carbon Dioxide 21 L (22-30) mmol/L BUN 19 (9-20) mg/dL Creatinine 0.41 L (0.66-1.25) mg/dL Glucose 97 (74-99) mg/dL Calcium 8.1 L (8.4-10.2) mg/dL Assessment and Plan (1) Duodenal mass Current Visit: Yes Status: Acute Code(s): K31.89 - OTHER DISEASES OF STOMACH AND DUODENUM SNOMED Code(s): 159907887 (2) Metastasis from pancreatic cancer Current Visit: Yes Status: Acute Code(s): C79.9 - SECONDARY MALIGNANT NEOPLASM OF UNSPECIFIED SITE; C25.9 - MALIGNANT NEOPLASM OF PANCREAS, UNSPECIFIED SNOMED Code(s): 183256930
[2018-09-03 15:11] VITALS: BMI 24.9
[2018-09-03 15:48] VITALS: RESP 18
[2018-09-03 17:00] LABS: Glucose,Whole Blood 176 mg/dL (75-99)
[2018-09-03 19:57] LABS: Anisocytosis Slight; HGB 8.8 gm/dL (13.0-17.5); Hypochromasia Marked; MCH 25.1 pg (25.0-35.0); MCHC 32.5 g/dL (31.0-37.0); MCV 77.3 fL (80.0-100.0); Mean Platelet Volume 7.9; Microcytosis Slight; Platelet Count 285 k/uL (150-450); Poikilocytosis Moderate; RBC 3.49 m/uL (4.30-5.90); RDW 17.7 % (11.5-15.5); WBC 15.3 k/uL (3.8-10.6)
[2018-09-03 20:06] LABS: Glucose,Whole Blood 211 mg/dL (75-99)
[2018-09-03] MEDS: ALPRAZolam 0.25 MG TAB PO PRN (20:44)
[2018-09-03] MEDS: LOPERAMIDE 2 MG CAP PO PRN (23:08)
[2018-09-04] MEDS: HYDROcodone/APAP 10-325MG 1 EACH TAB PO SCH ×2 (04:19→12:37)
[2018-09-04] MEDS: LACTATED RINGERS 1,000 ML IV SCH ×2 (04:22→12:25)
--- NOTE | 2018-09-04 06:10 | PN ---
PROGRESS NOTE DATE OF SERVICE: 09/03/2018 PRESENTING COMPLAINT: GI bleed. INTERVAL HISTORY: This is a patient with metastatic pancreatic cancer, presented with bloody bowel movements. EGD did reveal ulcerated duodenal mass. When I saw the patient, surgical consultation was pending. Family is at the bedside. No abdominal pain. REVIEW OF SYSTEMS: Done for constitutional, cardiovascular, GI, pulmonary; relevant findings as above. Patient not able to eat because of oral ulcers. CURRENT MEDICATIONS: Current medications are reviewed that include IV acyclovir, IV fluids. PHYSICAL EXAMINATION: On examination, temperature 98.9, pulse 99, respiration 18, blood pressure 112/68, pulse ox 97% on room air. GENERAL APPEARANCE: Sitting up in a chair, tired appearing, awake. EYES: Pupils equal. Conjunctivae pale. NECK: JVD not raised. Mass not palpable. RESPIRATORY: Effort normal. LUNGS: Diminished breath sounds. CARDIOVASCULAR: First and second sounds normal. No edema. ABDOMEN: Soft, nontender. Liver and spleen not palpable. Oral cavity some aphthous ulcers. PSYCHIATRY: Alert and oriented x3. Mood and affect normal. INVESTIGATIONS: White count 15.3, hemoglobin 8.8. ASSESSMENT: 1. Acute non-Q-wave myocardial infarction, not a candidate for any antiplatelet agents currently. 2. Acute upper gastrointestinal bleed from ulcerated duodenal mass, probably from pancreatic cancer. The patient will most likely need intervention from a higher care center will await a local opinion. 3. Metastatic pancreatic cancer with large necrotic mass in the pancreatic head with metastasis to the liver. 4. Anxiety, not otherwise specified. 5. Acute blood loss anemia, status post blood transfusion. 6. Microcytic anemia, both from malignancy and from gastrointestinal bleed. 7. Moderate protein-calorie malnutrition, decreased oral intake. 8. Medical debility from underlying malignancy. 9. Severe aphthous ulcers from chemotherapy. PLAN: I did speak to the patient's and daughter. We will await input from a local surgeon. Patient may need to be transferred to a higher level of care. Overall prognosis remains guarded. High risk to bleed again. MMODL / IJN: [id number] /
[2018-09-04 06:17] LABS: Glucose,Whole Blood 182 mg/dL (75-99)
[2018-09-04] MEDS: CHOLESTYRAMINE (WITH SUGAR) 4 GM PACKET PO SCH ×2 (06:26→12:36)
[2018-09-04] MEDS: LIPASE 5,000/PROTEASE 17,000/AMYLASE 24,000 PO SCH ×4 (06:27→16:16)
[2018-09-04] MEDS: MAG HYDROX/AL HYDROX/SIMETH 30 ML, diphenhydrAMINE ELIXIR 75 MG, LIDOCAINE VISCOUS 30 M... PO SCH ×8 (06:28→12:38)
[2018-09-04] MEDS: ASPIRIN 81 MG PO SCH (08:27)
[2018-09-04 08:28] LABS: ALT 31 U/L (21-72); AST 16 U/L (17-59); Albumin 2.6 g/dL (3.5-5.0); Alkaline Phosphatase 221 U/L (38-126); Anion Gap 10 mmol/L; Blood Urea Nitrogen 19 mg/dL (9-20); Calcium 8.1 mg/dL (8.4-10.2); Carbon Dioxide 20 mmol/L (22-30); Chloride 106 mmol/L (98-107); Glucose 161 mg/dL (74-99); Potassium 4.2 mmol/L (3.5-5.1); Sodium 136 mmol/L (137-145); Total Bilirubin 0.5 mg/dL (0.2-1.3); Total Protein 5.3 g/dL (6.3-8.2)
[2018-09-04] MEDS: CYANOCOBALAMIN 500 MCG TAB PO SCH (08:28)
[2018-09-04] MEDS: FLUCONAZOLE 100 MG TAB PO SCH (08:28)
[2018-09-04] MEDS: FOLIC ACID 1 MG TAB PO SCH (08:28)
[2018-09-04] MEDS: METOPROLOL TARTRATE 12.5 MG TAB PO SCH ×2 (08:28→18:38)
[2018-09-04] MEDS: ATORVASTATIN 80 MG TAB PO SCH (08:28)
[2018-09-04] MEDS: ACYCLOVIR SODIUM 500 MG in SODIUM CHLORIDE 0.9% 100 ML IVPB SCH ×2 (08:29→16:18)
[2018-09-04 08:32] LABS: Anisocytosis Slight; Basophils % (A) 0 %; Eosinophils # (A) 0.2 k/uL (0-0.7); Eosinophils % (A) 1 %; HCT 27.4 % (39.0-53.0); HGB 8.2 gm/dL (13.0-17.5); Hypochromasia Marked; Lymphocytes # (A) 0.7 k/uL (1.0-4.8); Lymphocytes % (A) 6 %; MCH 24.2 pg (25.0-35.0); MCHC 29.9 g/dL (31.0-37.0); Mean Platelet Volume 7.4; Monocytes # (A) 0.5 k/uL (0-1.0); Monocytes % (A) 4 %; Neutrophils # (A) 9.7 k/uL (1.3-7.7); Neutrophils % (A) 86 %; Platelet Count 288 k/uL (150-450); Poikilocytosis Moderate; RBC 3.39 m/uL (4.30-5.90); RDW 17.8 % (11.5-15.5); WBC 11.3 k/uL (3.8-10.6)
[2018-09-04 11:27] LABS: Glucose,Whole Blood 243 mg/dL (75-99)
[2018-09-04 14:23] VITALS: BP 118/70; PULSE 70; TEMP 97.8
[2018-09-04] MEDS: ALPRAZolam 0.25 MG TAB PO PRN (18:38)
--- NOTE | 2018-09-04 23:39 | P.PN ---
Subjective Progress Note Date: 09/04/18 Principal diagnosis: Pancreatic cancer Feeling better today, no acute events. Still weak although would like to go home Objective - Vital Signs Vital signs: Vital Signs Temp 97.8 F 09/04/18 12:00 Pulse 70 09/04/18 12:00 Resp 18 09/04/18 12:00 BP 118/70 09/04/18 12:00 Pulse Ox 100 09/04/18 12:00 Intake & Output 09/04/18 09/04/18 09/05/18 06:59 18:59 06:59 Intake Total 400 Output Total 250 600 Balance -250 -200 Weight 86.9 kg Intake: Oral 400 Output: Urine 250 600 Other: Voiding Method Bedside Commode Bedside Commode # Voids 3 # Bowel Movements 1 - Exam Gen: NAD, Head: NC Neck: Supple Thrush, erythema Lungs: Diminished Bibasilar, no increased effort Abdomen: Tender, mild distention Heart: Tachy Reg Ext NO edema Neuro: NO sensory or motor deficits - Labs CBC & Chem 7: 09/04/18 07:26 09/04/18 07:26 Labs: Abnormal Lab Results - Last 24 Hours (Table) 09/04/18 09/04/18 09/04/18 Range/Units 06:16 07:26 07:26 WBC 11.3 H (3.8-10.6) k/uL RBC 3.39 L (4.30-5.90) m/uL Hgb 8.2 L (13.0-17.5) gm/dL Hct 27.4 L (39.0-53.0) % MCH 24.2 L (25.0-35.0) pg MCHC 29.9 L (31.0-37.0) g/dL RDW 17.8 H (11.5-15.5) % Neutrophils # 9.7 H (1.3-7.7) k/uL Lymphocytes # 0.7 L (1.0-4.8) k/uL Sodium 136 L (137-145) mmol/L Carbon Dioxide 20 L (22-30) mmol/L Creatinine 0.48 L (0.66-1.25) mg/dL Glucose 161 H (74-99) mg/dL POC Glucose (mg/dL) 182 H (75-99) mg/dL Calcium 8.1 L (8.4-10.2) mg/dL AST 16 L (17-59) U/L Alkaline Phosphatase 221 H (38-126) U/L Total Protein 5.3 L (6.3-8.2) g/dL Albumin 2.6 L (3.5-5.0) g/dL 09/04/18 Range/Units 11:25 WBC (3.8-10.6) k/uL RBC (4.30-5.90) m/uL Hgb (13.0-17.5) gm/dL Hct (39.0-53.0) % MCH (25.0-35.0) pg MCHC (31.0-37.0) g/dL RDW (11.5-15.5) % Neutrophils # (1.3-7.7) k/uL Lymphocytes # (1.0-4.8) k/uL Sodium (137-145) mmol/L Carbon Dioxide (22-30) mmol/L Creatinine (0.66-1.25) mg/dL Glucose (74-99) mg/dL POC Glucose (mg/dL) 243 H (75-99) mg/dL Calcium (8.4-10.2) mg/dL AST (17-59) U/L Alkaline Phosphatase (38-126) U/L Total Protein (6.3-8.2) g/dL Albumin (3.5-5.0) g/dL Microbiology - Last 24 Hours (Table) 09/02/18 02:03 Blood Culture - Preliminary Blood No Growth after 48 hours Assessment and Plan Plan: Assessment and Recommendations: 1. Fall out of Bathtub: 2. Metastatic Pancreatic Cancer: - Status Post one treatment with Gemzar and Abraxane 3. Chronic Illness Myopathy and debility: - PT/OT Evaluation and treatment please, benefoit from home PT/OT after discharge 4. Microcytic Anemia: Malignancy and component of iron deficiency anemia - IV Parental Iron has been ordered as outpatient, ok to give a dose her in hospital will order - Status Post EGD - MOnitor Daily CBC 5. NSTEMI: Per primary and Cardiology COntinue supportive care Restart Chemo as outpatient Parental Iron not required at this time with elevated Ferritin MOnitor for active blood loss Transfusion support wouls transuse with hemoglobin less than 7.5 Status Post EGD and Discussed with GI OK for discharge from oncology standpoint and follow-up in office next week to resume chemotherapy treatment COnsider Epogen therapy as outpatient Physician Attest: I have completed the full history and Physcial and agree with above dictation by Janel Dean NP Dictated as a scribe
--- NOTE | 2018-09-05 08:38 | DS ---
DISCHARGE SUMMARY DATE OF ADMISSION: 09/01/2018 DATE OF DISCHARGE: 09/04/2018 FINAL DIAGNOSES: 1. Acute non-Q-wave myocardial infarction. 2. Acute upper gastrointestinal bleeding from ulcerated duodenal mass from pancreatic cancer. 3. Metastatic pancreatic cancer with large necrotic mass in the pancreatic head with metastasis to the liver. 4. Anxiety, not otherwise specified. 5. Acute blood loss anemia, status post blood transfusion. 6. Microcytic anemia both from malignancy and from gastrointestinal bleed. 7. Moderate protein-calorie malnutrition, decreased oral intake. 8. Medical debility from underlying malignancy. 9. Aphthous ulcer from chemotherapy. HOSPITAL COURSE: This patient has gotten chemotherapy for metastatic pancreatic cancer presented with GI bleed. EGD did show duodenal mass that was ulcerated. I did speak at length with Dr. Reid and Dr. Ambrosio from GI. The patient is not really a surgical candidate given his overall guarded prognosis and the patient has been to [facility] before with really no further options. Care was discussed with the patient and . Total time spent today was more than 35 minutes. Prognosis guarded. PHYSICAL EXAMINATION: On examination, temperature 97.8 pulse 70, respiration 18, blood pressure 118/70. ABDOMEN: Soft, nontender. Pulse ox 100% on room air. INVESTIGATIONS: White count 11.3, hemoglobin 8.2. Potassium 4.2. BUN 19, creatinine 0.48. CONSULTATIONS: Dr. Reid from Oncology; Dr. Ambrosio from GI; Dr. Cortez from Cardiology. HOME MEDICATIONS: 1. Mevacor 40 mg at bedtime. 2. Xanax 0.25 p.o. t.i.d. p.r.n. 3. Questran 4 grams p.o. a.c. at bedtime. 4. Cool's solution a.c. at bedtime. 5. Vitamin B12, 1000 mcg p.o. daily. 6. Folic acid 1 mg p.o. daily. 7. [place]on 10 one tab q.i.d. 8. Pancreatic enzyme, Creon 24541 units p.o. t.i.d. between meals and 48,000 p.o. t.i.d. with meals. 9. Acyclovir 400 mg t.i.d. 30 days. 10.Aspirin 81 mg a day. 11.Decadron 4 mg p.o. t.i.d. 12.Pepcid 20 mg b.i.d. 13.Diflucan 100 mg p.o. daily. 14.Lopressor 12.5 p.o. b.i.d. 15.Nitrostat 0.4 sublingual q.5 p.r.n. Follow up with Dr. Cortez in 3 weeks. Follow up with Dr. Reid in 1 week. Follow up with Dr. Landers in 3 days. Follow up with Dr. Ambrosio in 3 weeks. [facility] to follow. LABS: CBC and BMP in 3 days. Discussion and discharge planning more than 35 minutes. MMODL / IJN: [id number] /
== END 2018-09-04 18:43 | disposition home health service (06) | DRG 377 ==
LOC: EC 09:53 → 3SCARD 16:51
PROVIDERS: ADMIT Hospitalist; ATTEND Hospitalist
PROC: 30233N1 Transfusion of Nonautologous Red Blood Cells into Peripheral Vein, Percutaneous Approach (ICD-10-PCS; principal; 2018-09-01)
PROC: 0DB98ZX Excision of Duodenum, Via Natural or Artificial Opening Endoscopic, Diagnostic (ICD-10-PCS; 2018-09-02)
PROC: 0DB78ZX Excision of Stomach, Pylorus, Via Natural or Artificial Opening Endoscopic, Diagnostic (ICD-10-PCS; 2018-09-02)
DX: K26.4 Chronic or unspecified duodenal ulcer with hemorrhage (principal); I21.A1 Myocardial infarction type 2; C25.0 Malignant neoplasm of head of pancreas; C78.7 Secondary malignant neoplasm of liver and intrahepatic bile duct; D62 Acute posthemorrhagic anemia; E44.0 Moderate protein-calorie malnutrition; E87.2 Acidosis; K12.0 Recurrent oral aphthae; D50.9 Iron deficiency anemia, unspecified; E11.9 Type 2 diabetes mellitus without complications; Z68.26 Body mass index [BMI] 26.0-26.9, adult; E78.00 Pure hypercholesterolemia, unspecified; E86.0 Dehydration; F41.9 Anxiety disorder, unspecified; I25.10 Atherosclerotic heart disease of native coronary artery without angina pectoris; K29.70 Gastritis, unspecified, without bleeding; Z91.81 History of falling; Z79.82 Long term (current) use of aspirin; Z79.899 Other long term (current) drug therapy; Z80.1 Family history of malignant neoplasm of trachea, bronchus and lung; Z82.3 Family history of stroke; Z87.891 Personal history of nicotine dependence; K12.31 Oral mucositis (ulcerative) due to antineoplastic therapy; T45.1X5A Adverse effect of antineoplastic and immunosuppressive drugs, initial encounter; Z79.891 Long term (current) use of opiate analgesic
CPT/HCPCS: 36415; 43239; 70450; 71046; 74177; 80048; 80053; 80061; 81001; 82272; 83605; 83735; 84484; 85025; 85027; 85610; 85730; 86850; 86900; 86901; 86920; 87040; 87045; 87046; 87324; 87502; 88305; 93005; 94760; 96361; 96374; 99291

== ENCOUNTER 2018-09-11 11:01 | Inpatient (IN) | payer MEDICARE, OTHER ==
[2018-09-11] MEDS ORDERED: SODIUM CHLORIDE 0.9% 1,000 ML IV STA ×2 (12:06)
[2018-09-11] MEDS ORDERED: SODIUM CHLORIDE 0.9% 500 ML 500 ML IV STA (12:06)
[2018-09-11] MEDS ORDERED: IPRATROPIUM-ALBUTEROL 3 ML NEB INHALATION STA (12:06)
--- NOTE | 2018-09-11 12:09 | ED ---
Weakness HPI - General Chief complaint: Shortness of Breath Stated complaint: SOB, HIGH SUGAR Time Seen by Provider: 09/11/18 11:33 Source: patient, RN notes reviewed, old records reviewed Mode of arrival: wheelchair Limitations: no limitations - History of Present Illness Initial comments: This is a 68-year-old male the ER for evaluation weakness and shortness of breath. Patient feels that he cannot catch his breath. As no known sick contacts no fevers. 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 Patient is coming to Hospital for evaluation unable to make it to appointment and came to ER secondary to shortness of breath. Patient again de nies fever. No shortness of breath no dysuria no nausea vomiting or diarrhea. MD Complaint: generalized weakness, lack of energy, difficulty walking -: days(s) Location: generalized Severity: moderate Severity scale (1-10): 5 Improves with: none Worsens with: none Context: new medication (chemoTx) Associated Symptoms: loss of appetite, shortness of breath - Related Data Home Medications Medication Instructions Recorded Confirmed Lovastatin [Mevacor] 40 mg PO HS 07/16/18 09/11/18 ALPRAZolam [Xanax] 0.25 mg PO TID PRN 09/01/18 09/11/18 Cholestyramine (with Sugar) 4 gm PO ACHS 09/01/18 09/11/18 [Questran Packet] Cool's Solution 5 ml PO ACHS PRN 09/01/18 09/11/18 Cyanocobalamin (Vitamin B-12) 1,000 mcg PO DAILY 09/01/18 09/11/18 [Vitamin B-12] Folic Acid 1 mg PO DAILY 09/01/18 09/11/18 HYDROcodone/APAP 10-325MG [[place] 1 tab PO QID 09/01/18 09/11/18 10-325] Lipase/Protease/Amylase [Mary Ellen Gómez 24,000 units PO TID BETWEEN MEALS 09/01/18 09/11/18 24,000 Units Capsule] Lipase/Protease/Amylase [Mary Ellen Gómez 48,000 units PO TID-W/MEALS 09/01/18 09/11/18 24,000 Units Capsule] Insulin Degludec [Tresiba 10 units SQ HS 09/11/18 09/11/18 Flextouch U-100] Previous Rx's Medication Instructions Recorded Acyclovir [Zovirax] 400 mg PO TID #30 ml 09/04/18 Aspirin 81 mg PO DAILY #1 chew 09/04/18 Dexamethasone [Decadron] 4 mg PO TID #45 tablet 09/04/18 Famotidine [Pepcid] 20 mg PO BID #60 tablet 09/04/18 Fluconazole [Diflucan] 100 mg PO DAILY #10 tab 09/04/18 Metoprolol Tartrate [Lopressor] 12.5 mg PO BID #60 tab 09/04/18 Nitroglycerin Sl Tabs [Nitrostat] 0.4 mg SUBLINGUAL Q5M PRN #25 tab 09/04/18 Allergies Allergy/AdvReac Type Severity Reaction Status Date / Time No Known Allergies Allergy Verified 09/11/18 12:14 Review of Systems ROS Statement: Those systems with pertinent positive or pertinent negative responses have been documented in the HPI. ROS Other: All systems not noted in ROS Statement are negative. Past Medical History Past Medical History: Diabetes Mellitus Additional Past Medical History / Comment(s): stage 4 pancreatic cancer, last chemo 08/27, [facility] place 08/18 History of Any Multi-Drug Resistant Organisms: None Reported Past Surgical History: No Surgical Hx Reported Past Psychological History: No Psychological Hx Reported Smoking Status: Former smoker Past Alcohol Use History: None Reported Past Drug Use History: None Reported - Past Family History Mother Additional Family Medical History / Comment(s): Lung Cancer at age 83 Father Family Medical History: CVA/TIA General Exam Limitations: no limitations General appearance: alert, in no apparent distress Head exam: Present: atraumatic, normocephalic, normal inspection Eye exam: Present: normal appearance, PERRL, EOMI. Absent: scleral icterus, conjunctival injection, periorbital swelling ENT exam: Present: normal exam, mucous membranes moist Neck exam: Present: normal inspection. Absent: tenderness, meningismus, lymphadenopathy Respiratory exam: Present: normal lung sounds bilaterally. Absent: respiratory distress, wheezes, rales, rhonchi, stridor Cardiovascular Exam: Present: regular rate, normal rhythm, normal heart sounds. Absent: systolic murmur, diastolic murmur, rubs, gallop, clicks GI/Abdominal exam: Present: soft, normal bowel sounds. Absent: distended, tenderness, guarding, rebound, rigid Extremities exam: Present: normal inspection, full ROM, normal capillary refill. Absent: tenderness, pedal edema, joint swelling, calf tenderness Back exam: Present: normal inspection Neurological exam: Present: alert, oriented X3, CN II-XII intact Psychiatric exam: Present: normal affect, normal mood Skin exam: Present: warm, dry, intact, normal color. Absent: rash Course Vital Signs 09/11/18 09/11/18 09/11/18 11:26 11:41 11:50 Temperature 98.0 F Pulse Rate 91 65 Respiratory 18 10 L Rate Blood Pressure 53/39 79/60 79/60 O2 Sat by Pulse 90 L Oximetry 09/11/18 09/11/18 09/11/18 12:00 12:10 12:17 Temperature Pulse Rate 71 73 68 Respiratory 19 14 Rate Blood Pressure 79/60 O2 Sat by Pulse Oximetry 09/11/18 09/11/18 09/11/18 12:20 12:25 12:30 Temperature Pulse Rate 68 71 Respiratory 11 L Rate Blood Pressure 91/56 91/56 O2 Sat by Pulse Oximetry 09/11/18 09/11/18 09/11/18 12:40 12:50 13:00 Temperature Pulse Rate 70 70 70 Respiratory 12 13 13 Rate Blood Pressure 91/56 95/67 95/67 O2 Sat by Pulse 100 100 Oximetry 09/11/18 09/11/18 13:26 13:58 Temperature Pulse Rate 84 66 Respiratory 16 18 Rate Blood Pressure 105/70 115/70 O2 Sat by Pulse 98 99 Oximetry - Reevaluation(s) Reevaluation #1: 09/11/18 14:02 Medical record is reviewed Reevaluation #2: 09/11/18 14:02 Blood pressure improved with hydration EKG Findings - EKG Comments: EKG Findings:: EKG shows NSR rate of 71 ND 116 QRS 88 QTc 432 Medical Decision Making - Medical Decision Making 68 male the ER for evaluation. Patient is today for evaluation of weakness, shortness of breath with exertion. Patient hypotensive on arrival to emergency room admitted the make. Patient's only lactic acid elevated white blood cell count, will admit to rule out sepsis. Currently chest x-rays negative - Lab Data Result diagrams: 09/11/18 12:15 09/11/18 12:15 Lab Results 09/11/18 09/11/18 09/11/18 Range/Units 12:15 12:15 12:15 WBC 23.0 H (3.8-10.6) k/uL RBC 3.39 L (4.30-5.90) m/uL Hgb 8.2 L (13.0-17.5) gm/dL Hct 28.7 L (39.0-53.0) % MCV 84.6 (80.0-100.0) fL MCH 24.2 L (25.0-35.0) pg MCHC 28.6 L (31.0-37.0) g/dL RDW 22.4 H (11.5-15.5) % Plt Count 789 H D (150-450) k/uL Neutrophils % 92 % Lymphocytes % 3 % Monocytes % 4 % Eosinophils % 0 % Basophils % 0 % Neutrophils # 21.1 H (1.3-7.7) k/uL Lymphocytes # 0.6 L (1.0-4.8) k/uL Monocytes # 1.0 (0-1.0) k/uL Eosinophils # 0.0 (0-0.7) k/uL Basophils # 0.0 (0-0.2) k/uL Hypochromasia Marked Poikilocytosis Slight Anisocytosis Moderate Microcytosis Slight PT (9.0-12.0) sec INR (<1.2) APTT (22.0-30.0) sec Sodium 130 L (137-145) mmol/L Potassium 5.2 H (3.5-5.1) mmol/L Chloride 98 (98-107) mmol/L Carbon Dioxide 23 (22-30) mmol/L Anion Gap 9 mmol/L BUN 25 H (9-20) mg/dL Creatinine 0.50 L (0.66-1.25) mg/dL Est GFR (CKD-EPI)AfAm >90 (>60 ml/min/1.73 sqM) Est GFR (CKD-EPI)NonAf >90 (>60 ml/min/1.73 sqM) Glucose 326 H (74-99) mg/dL Plasma Lactic Acid Tan 3.5 H* (0.7-2.0) mmol/L Calcium 8.4 (8.4-10.2) mg/dL Phosphorus 3.1 (2.5-4.5) mg/dL Magnesium 2.0 (1.6-2.3) mg/dL Total Bilirubin 0.6 (0.2-1.3) mg/dL AST 18 (17-59) U/L ALT 34 (21-72) U/L Alkaline Phosphatase 187 H (38-126) U/L Troponin I (0.000-0.034) ng/mL NT-Pro-B Natriuret Pep pg/mL Total Protein 5.0 L (6.3-8.2) g/dL Albumin 2.8 L (3.5-5.0) g/dL TSH 1.270 (0.465-4.680) mIU/L Blood Type Blood Type Recheck Antibody Screen Spec Expiration Date 09/11/18 09/11/18 09/11/18 Range/Units 12:15 12:15 12:15 WBC (3.8-10.6) k/uL RBC (4.30-5.90) m/uL Hgb (13.0-17.5) gm/dL Hct (39.0-53.0) % MCV (80.0-100.0) fL MCH (25.0-35.0) pg MCHC (31.0-37.0) g/dL RDW (11.5-15.5) % Plt Count (150-450) k/uL Neutrophils % % Lymphocytes % % Monocytes % % Eosinophils % % Basophils % % Neutrophils # (1.3-7.7) k/uL Lymphocytes # (1.0-4.8) k/uL Monocytes # (0-1.0) k/uL Eosinophils # (0-0.7) k/uL Basophils # (0-0.2) k/uL Hypochromasia Poikilocytosis Anisocytosis Microcytosis PT 11.7 (9.0-12.0) sec INR 1.1 (<1.2) APTT 19.2 L (22.0-30.0) sec Sodium (137-145) mmol/L Potassium (3.5-5.1) mmol/L Chloride (98-107) mmol/L Carbon Dioxide (22-30) mmol/L Anion Gap mmol/L BUN (9-20) mg/dL Creatinine (0.66-1.25) mg/dL Est GFR (CKD-EPI)AfAm (>60 ml/min/1.73 sqM) Est GFR (CKD-EPI)NonAf (>60 ml/min/1.73 sqM) Glucose (74-99) mg/dL Plasma Lactic Acid Tan (0.7-2.0) mmol/L Calcium (8.4-10.2) mg/dL Phosphorus (2.5-4.5) mg/dL Magnesium (1.6-2.3) mg/dL Total Bilirubin (0.2-1.3) mg/dL AST (17-59) U/L ALT (21-72) U/L Alkaline Phosphatase (38-126) U/L Troponin I 0.029 (0.000-0.034) ng/mL NT-Pro-B Natriuret Pep 2180 pg/mL Total Protein (6.3-8.2) g/dL Albumin (3.5-5.0) g/dL TSH (0.465-4.680) mIU/L Blood Type Blood Type Recheck Antibody Screen Spec Expiration Date 09/11/18 Range/Units 12:15 WBC (3.8-10.6) k/uL RBC (4.30-5.90) m/uL Hgb (13.0-17.5) gm/dL Hct (39.0-53.0) % MCV (80.0-100.0) fL MCH (25.0-35.0) pg MCHC (31.0-37.0) g/dL RDW (11.5-15.5) % Plt Count (150-450) k/uL Neutrophils % % Lymphocytes % % Monocytes % % Eosinophils % % Basophils % % Neutrophils # (1.3-7.7) k/uL Lymphocytes # (1.0-4.8) k/uL Monocytes # (0-1.0) k/uL Eosinophils # (0-0.7) k/uL Basophils # (0-0.2) k/uL Hypochromasia Poikilocytosis Anisocytosis Microcytosis PT (9.0-12.0) sec INR (<1.2) APTT (22.0-30.0) sec Sodium (137-145) mmol/L Potassium (3.5-5.1) mmol/L Chloride (98-107) mmol/L Carbon Dioxide (22-30) mmol/L Anion Gap mmol/L BUN (9-20) mg/dL Creatinine (0.66-1.25) mg/dL Est GFR (CKD-EPI)AfAm (>60 ml/min/1.73 sqM) Est GFR (CKD-EPI)NonAf (>60 ml/min/1.73 sqM) Glucose (74-99) mg/dL Plasma Lactic Acid Tan (0.7-2.0) mmol/L Calcium (8.4-10.2) mg/dL Phosphorus (2.5-4.5) mg/dL Magnesium (1.6-2.3) mg/dL Total Bilirubin (0.2-1.3) mg/dL AST (17-59) U/L ALT (21-72) U/L Alkaline Phosphatase (38-126) U/L Troponin I (0.000-0.034) ng/mL NT-Pro-B Natriuret Pep pg/mL Total Protein (6.3-8.2) g/dL Albumin (3.5-5.0) g/dL TSH (0.465-4.680) mIU/L Blood Type O Positive Blood Type Recheck No Antibody Screen NEGATIVE Spec Expiration Date 09/14/2018 - 9057 - Radiology Data Radiology results: report reviewed (Chest x-rays negative for acute disease), image reviewed Critical Care Time Critical Care Time: Yes Total Critical Care Time: 31 Disposition Clinical Impression: Anemia, Metastasis from pancreatic cancer, Lactic acidosis, Dehydration, Hypotension, Leukocytosis Disposition: ADMITTED IP TO THIS HOSP Condition: Fair Is patient prescribed a controlled substance at d/c from ED?: No Referrals: Sai Landers DO [Primary Care Provider] - 1-2 days
--- NOTE | 2018-09-11 12:42 | XR ---
EXAMINATION TYPE: XR chest 2V DATE OF EXAM: 09/11/2018 COMPARISON: NONE TECHNIQUE: PA and lateral views submitted. HISTORY: Shortness of breath FINDINGS: The lungs are clear and there is no pneumothorax, pleural effusion, or focal pneumonia. [facility] theter seen the tip overlying the cavoatrial junction. Arthropathy of the shoulders. Degenerative felix nge of the spine. IMPRESSION: 1. No acute process.
[2018-09-11 12:43] LABS: Anisocytosis Moderate; Basophils % (A) 0 %; Eosinophils % (A) 0 %; HCT 28.7 % (39.0-53.0); HGB 8.2 gm/dL (13.0-17.5); Hypochromasia Marked; Lymphocytes # (A) 0.6 k/uL (1.0-4.8); Lymphocytes % (A) 3 %; MCH 24.2 pg (25.0-35.0); MCHC 28.6 g/dL (31.0-37.0); MCV 84.6 fL (80.0-100.0); Mean Platelet Volume 7.3; Microcytosis Slight; Monocytes % (A) 4 %; Neutrophils # (A) 21.1 k/uL (1.3-7.7); Neutrophils % (A) 92 %; Poikilocytosis Slight; RBC 3.39 m/uL (4.30-5.90); RDW 22.4 % (11.5-15.5)
[2018-09-11 12:49] LABS: INR 1.1 (<1.2); Prothrombin Time 11.7 sec (9.0-12.0)
[2018-09-11 13:00] LABS: ALT 34 U/L (21-72); AST 18 U/L (17-59); Albumin 2.8 g/dL (3.5-5.0); Alkaline Phosphatase 187 U/L (38-126); Anion Gap 9 mmol/L; Blood Urea Nitrogen 25 mg/dL (9-20); Calcium 8.4 mg/dL (8.4-10.2); Carbon Dioxide 23 mmol/L (22-30); Chloride 98 mmol/L (98-107); Glucose 326 mg/dL (74-99); Phosphorus 3.1 mg/dL (2.5-4.5); Potassium 5.2 mmol/L (3.5-5.1); Sodium 130 mmol/L (137-145); Total Bilirubin 0.6 mg/dL (0.2-1.3)
[2018-09-11 13:07] LABS: Partial Thromboplastin Time 19.2 sec (22.0-30.0)
[2018-09-11 13:09] LABS: Platelet Count 789 k/uL (150-450)
[2018-09-11] MEDS ORDERED: VANCOMYCIN IV PER PHARMACY 1 EACH MISC MISCELLANE PRN (13:38)
[2018-09-11] MEDS ORDERED: PIPERACILLIN-TAZOBACTAM 3.375 GM in SODIUM CHLORIDE 0.9% 100 ML IVPB STA (13:38)
[2018-09-11] MEDS ORDERED: VANCOMYCIN 1,500 MG in SODIUM CHLORIDE 0.9% 250 ML IVPB STA (13:44)
--- NOTE | 2018-09-11 14:10 | US ---
EXAMINATION TYPE: US venous doppler duplex LE BI DATE OF EXAM: 09/11/2018 1:59 PM COMPARISON: NONE CLINICAL HISTORY: Pain. Bilateral edema SIDE PERFORMED: Bilateral TECHNIQUE: The lower extremity deep venous system is examined utilizing real time linear array sonog luis eduardo with graded compression, doppler sonography and color-flow sonography. VESSELS IMAGED: External Iliac Vein (EIV) Common Femoral Vein Deep Femoral Vein Greater Saphenous Vein * Femoral Vein Popliteal Vein Small Saphenous Vein * Proximal Calf Veins (* superficial vessels) Right Leg: Negative for DVT Left Leg: Negative for DVT Grayscale, color doppler, spectral doppler imaging performed of the deep veins of the bilateral lower extremities. There is normal flow, compressibility, vascular waveforms. IMPRESSION: No ultrasound evidence for acute DVT in either lower extremity.
[2018-09-11] MEDS ORDERED: HYDROcodone/APAP 10-325MG 1 EACH TAB PO ONE (15:10)
[2018-09-11 15:31] LABS: Appearance,Urine Clear (Clear); Bilirubin,Urine Negative (Negative); Blood,Urine Negative (Negative); Color,Urine Yellow; Glucose,Urine (UA) 4+ (Negative); Ketones,Urine Negative (Negative); Leukocyte Esterase,Urine Negative (Negative); Nitrite,Urine Negative (Negative); Protein,Urine Trace (Negative); Specific Gravity,Urine 1.027 (1.001-1.035); Urobilinogen,Urine <2.0 mg/dL (<2.0)
[2018-09-11] MEDS: SODIUM CHLORIDE 0.9% 1,000 ML IV SCH ×2 (15:31→21:08)
[2018-09-11] MEDS ORDERED: ALPRAZolam 0.25 MG TAB PO PRN (18:12)
[2018-09-11] MEDS ORDERED: NITROGLYCERIN SL TABS 0.4 MG TAB SUBLINGUAL PRN (18:12)
[2018-09-11 18:33] LABS: Glucose,Whole Blood 329 mg/dL (75-99)
[2018-09-11] MEDS ORDERED: INSULIN ASPART (NovoLOG) 100 UNIT/ML VIAL SQ ONE (18:43)
[2018-09-11] MEDS: HYDROcodone/APAP 10-325MG 1 EACH TAB PO SCH (18:49)
--- NOTE | 2018-09-11 19:28 | CT ---
EXAMINATION TYPE: CT angio chest DATE OF EXAM: 09/11/2018 5:05 PM COMPARISON: None HISTORY: Shortness of breath. CT DLP: 308.9 mGycm Automated exposure control for dose reduction was used. CONTRAST: CTA scan of the thorax is performed with IV Contrast, patient injected with 77 mL of Isovue 370, pulm onary embolism protocol. There are 3-D post processed images.. FINDINGS: There is no mediastinal adenopathy. Thoracic aorta shows mild atheromatous change. There are no hilar masses. Thoracic aorta appears intact without evidence of aneurysm or dissection. The ascending aort a measures 3.8 cm. There is right pleural effusion. There is some right basilar atelectasis. There is normal contrast opacification of the pulmonary arteries. I see no filling defects. The bony thorax is intact. There is some spurring in the lower thoracic spine. There are numerous low-density masses in the liver. IMPRESSION: NO EVIDENCE OF PULMONARY EMBOLISM. RIGHT PLEURAL EFFUSION AND RIGHT BASILAR ATELECTASIS INCREASED SLI GHTLY COMPARED TO 09/01/2018. Hepatic metastatic disease.
[2018-09-11 20:41] LABS: Glucose,Whole Blood 291 mg/dL (75-99)
[2018-09-11] MEDS: ATORVASTATIN 10 MG TAB PO SCH (21:08)
[2018-09-11] MEDS: CHOLESTYRAMINE (WITH SUGAR) 4 GM PACKET PO SCH (21:08)
[2018-09-11] MEDS: FAMOTIDINE 20 MG TAB PO SCH (21:09)
[2018-09-11] MEDS: INSULIN ASPART (NovoLOG) 100 UNIT/ML VIAL SQ SCH (21:09)
[2018-09-11] MEDS: DEXAMETHASONE 4 MG TAB PO SCH (21:10)
[2018-09-11] MEDS: ACYCLOVIR 400 MG/10 ML CUP PO SCH (21:10)
[2018-09-11] MEDS: METOPROLOL TARTRATE 12.5 MG TAB PO SCH (21:10)
[2018-09-11] MEDS: VANCOMYCIN 1,500 MG in SODIUM CHLORIDE 0.9% 250 ML IVPB SCH (23:20)
[2018-09-11] MEDS: PIPERACILLIN-TAZOBACTAM 3.375 GM in SODIUM CHLORIDE 0.9% 100 ML IVPB SCH (23:27)
--- NOTE | 2018-09-11 23:32 | HP ---
HISTORY AND PHYSICAL DATE OF ADMISSION: 09/11/2018. DATE OF SERVICE: 09/11/2018. PRESENTING COMPLAINT: Short of breath. HISTORY OF PRESENTING COMPLAINT: This is a patient who was just here in the hospital and discharged on 09/04/2018. The patient does follow with Dr. has a diagnosis of metastatic pancreatic cancer, has had chemotherapy. The patient also had oral blisters following chemotherapy. Last admission patient had GI bleed and he was found to have an eroding mass into the duodenum. It was felt that at this point nothing further can be done as he had already had opinion from [facility]. Plan was for him to follow up with Dr. eRid as an outpatient. The patient has been tolerating some diet. Has noticed though he has become rather short of breath even walking short distances, having bowel movements. Appetite has gone down. Edema has gone up. Feels rather weak and tired. Had decided to present to the ER. PE was ruled out by CT scan. REVIEW OF SYSTEMS: CONSTITUTIONAL: Weak and tired. Loss of appetite. HEENT: Oral blisters are improving. RESPIRATORY: As above. CARDIOVASCULAR: None. GASTROINTESTINAL: None. GENITOURINARY: None. MUSCULOSKELETAL: None. DERMATOLOGICAL, HEMATOLOGIC, LYMPHATIC: None. PSYCHIATRY: Anxious. NEUROLOGIC: Denies weakness. PAST HISTORY: Diabetes mellitus type 2, stage IV pancreatic cancer with last chemo on 08/27/2018 and mass protruding into the duodenum, anxiety, hypercholesteremia. PAST SURGICAL HISTORY: None. SOCIAL HISTORY: Did smoke in the past. . Currently not employed. FAMILY HISTORY: Lung cancer and stroke. HOME MEDICATIONS: 1. Nitrostat 0.4 sublingual every 5 p.r.n. 2. Lopressor 12.5 p.o. b.i.d. 3. Mevacor 40 mg at bedtime. 4. Creon 10818 units p.o. t.i.d. with meals and 94811 units p.o. t.i.d. with meals. 5. 10 units subcu at bedtime. 6. [place] 10 one tablet p.o. q.i.d. 7. Folic acid 1 mg p.o. daily. 8. Diflucan 100 mg p.o. daily. 9. Pepcid 20 mg b.i.d. 10.Decadron 4 mg p.o. t.i.d. 11.Vitamin B12, 1000 mcg p.o. daily. 12.Familia solution. 13.Questran 4 g p.o. with meals and at bedtime. 14.Aspirin 81 mg p.o. daily. 15.Zovirax 400 mg p.o. t.i.d. 16.Xanax 0.25 p.o. t.i.d. p.r.n. ALLERGIES: None. PHYSICAL EXAMINATION: Temperature 99, pulse 93, respiratory rate 18, blood pressure 100/58, pulse ox 98% on 2 L. GENERAL APPEARANCE: Well-built. BMI 35.7. Lying in bed, tired-appearing. EYES: Pupils equal. Conjunctivae pale. HEENT: External appearance of nose and ears normal. Oral cavity normal. NECK: JVD unable to assess. Mass not palpable. RESPIRATORY: Effort increased. LUNGS: Slightly decreased breath sounds. CARDIOVASCULAR: 1st and 2nd heart sounds normal. Edema present. ABDOMEN: Soft, nontender. Liver and spleen not palpable. LYMPHATIC: No lymph node palpable in the neck, axillae or groin. PSYCHIATRY: Alert, oriented x3. Mood and affect normal. NEUROLOGICAL: Pupils equal. Cranial nerves grossly intact. Power and sensation grossly intact. INVESTIGATIONS: White count 23, hemoglobin 8.2, platelets 789,000, potassium 5.2, BUN 25, creatinine 0.50. Lactic acid 3.5. ProBNP 2180, albumin 2.8. TSH is normal. EKG tracing personally reviewed by me shows normal sinus rhythm with nonspecific T-wave changes. Chest CTA negative for PE. Doppler ultrasound, no DVT. Chest x-ray film personally reviewed by me shows some elevation of the right diaphragm. No focal pneumonia. ASSESSMENT: 1. This is a patient who presents with worsening short of breath with very poor exercise tolerance and edema. There is no obvious edema on the chest x-ray. Maybe does have diaphragmatic effusion on the right side that could be compromising his respiratory status. 2. Recent acute non-Q-wave myocardial infarction. 3. Metastatic pancreatic cancer with large necrotic mass in the pancreatic head with metastases to the liver. 4. Anxiety not otherwise specified. 5. Microcytic anemia, combination of iron deficiency and acute blood loss anemia. 6. Moderate protein-calorie malnutrition, decreased oral intake. 7. Medical debility. PLAN: Home medications resumed. We will get an ultrasound of the chest to rule out any significant fluid pocket that may be compromising breathing. Overall prognosis is guarded. Care was discussed with the patient. ADVANCED CARE PLANNING: This was discussed with the patient at length. The patient does not really want to be on any artificial support. He does understand that his prognosis is guarded. We did discuss about ventilator and CPR. The patient does understand he will be fully treated, but if his heart is to stop and lungs are to shut down because of advanced cancer, then he is not to be resuscitated. Approximately 20 minutes was spent in advanced care planning. MMODL / IJN: [id number] /
[2018-09-12 02:51] LABS: Anisocytosis Moderate; HCT 25.5 % (39.0-53.0); HGB 7.5 gm/dL (13.0-17.5); Hypochromasia Marked; MCH 25.3 pg (25.0-35.0); MCHC 29.4 g/dL (31.0-37.0); MCV 85.8 fL (80.0-100.0); Mean Platelet Volume 6.9; Platelet Count 591 k/uL (150-450); Poikilocytosis Slight; RBC 2.97 m/uL (4.30-5.90); RDW 22.5 % (11.5-15.5); WBC 20.3 k/uL (3.8-10.6)
[2018-09-12 03:24] LABS: Band Neutrophils % 17 %; Eosinophils # (M) 0.41 k/uL (0-0.7); Lymphocytes # (M) 0.81 k/uL (1.0-4.8); Metamyelocytes % 1 %; Monocytes # (M) 0.81 k/uL (0-1.0); Neutrophils % (M) 73 %; Nucleated Red Blood Cells 0 /100 WBC (0-0); Polychromasia Present; Total Cells Counted 200
[2018-09-12 03:25] LABS: Toxic Vacuolation Present
[2018-09-12] MEDS ORDERED: SODIUM CHLORIDE 0.9% 500 ML 500 ML IV ONE ×2 (04:44→05:39)
[2018-09-12] MEDS: SODIUM CHLORIDE 0.9% 1,000 ML IV SCH ×4 (04:52→20:13)
[2018-09-12] MEDS: PANTOPRAZOLE 40 MG/10 ML VIAL IVP SCH ×2 (05:46→10:35)
[2018-09-12 05:57] LABS: Glucose,Whole Blood 205 mg/dL (75-99)
[2018-09-12 06:35] LABS: Glucose,Whole Blood 209 mg/dL (75-99)
[2018-09-12 07:18] LABS: Glucose,Whole Blood 224 mg/dL (75-99)
[2018-09-12] MEDS: INSULIN ASPART (NovoLOG) 100 UNIT/ML VIAL SQ SCH ×4 (07:39→21:15)
--- NOTE | 2018-09-12 08:01 | US ---
EXAMINATION TYPE: US abdomen limited DATE OF EXAM: 09/12/2018 COMPARISON: NONE CLINICAL HISTORY: assess for ascites. CA patient in ICU, no distention Assessed all four quadrants of abdomen and no fluid collections were seen. IMPRESSION: No sonographic evidence of abdominal ascites within the 4 abdominal quadrants.
--- NOTE | 2018-09-12 08:04 | US ---
EXAMINATION TYPE: US chest DATE OF EXAM: 09/12/2018 COMPARISON: NONE CLINICAL HISTORY: ace for thoracentesis. ICU pt TECHNIQUE: Targeted ultrasound of the posterior lower bilateral EXAM MEASUREMENTS: Right Pleural Effusion pocket size: 0 cm Left Pleural Effusion pocket size: 1.1 cm Right side NOT marked Left side NOT marked Pulmonologists are able to review the images in the patient?s EMR. IMPRESSIONS: Trace left pleural effusion. No right pleural effusion seen.
[2018-09-12] MEDS: PIPERACILLIN-TAZOBACTAM 3.375 GM in SODIUM CHLORIDE 0.9% 100 ML IVPB SCH ×2 (08:55→15:57)
[2018-09-12] MEDS: ASPIRIN 81 MG PO SCH (08:56)
[2018-09-12] MEDS: HYDROcodone/APAP 10-325MG 1 EACH TAB PO SCH ×4 (08:56→21:52)
[2018-09-12] MEDS: FAMOTIDINE 20 MG TAB PO SCH (08:56)
[2018-09-12] MEDS: CYANOCOBALAMIN 500 MCG TAB PO SCH (08:56)
[2018-09-12] MEDS: METOPROLOL TARTRATE 12.5 MG TAB PO SCH ×2 (09:00→20:14)
[2018-09-12] MEDS ORDERED: FLUCONAZOLE 100 MG TAB PO SCH (09:00)
[2018-09-12 09:48] LABS: Anisocytosis Moderate; Basophils # (A) 0.1 k/uL (0-0.2); Basophils % (A) 0 %; Eosinophils # (A) 0.1 k/uL (0-0.7); Eosinophils % (A) 0 %; HCT 26.1 % (39.0-53.0); HGB 7.9 gm/dL (13.0-17.5); Hypochromasia Marked; Lymphocytes # (A) 0.4 k/uL (1.0-4.8); Lymphocytes % (A) 2 %; MCH 25.5 pg (25.0-35.0); MCHC 30.2 g/dL (31.0-37.0); MCV 84.6 fL (80.0-100.0); Mean Platelet Volume 7.4; Monocytes # (A) 0.9 k/uL (0-1.0); Monocytes % (A) 4 %; Neutrophils # (A) 19.7 k/uL (1.3-7.7); Neutrophils % (A) 93 %; Platelet Count 479 k/uL (150-450); Poikilocytosis Slight; RBC 3.09 m/uL (4.30-5.90); RDW 21.7 % (11.5-15.5); WBC 21.4 k/uL (3.8-10.6)
[2018-09-12 09:58] LABS: Anion Gap 8 mmol/L; Blood Urea Nitrogen 23 mg/dL (9-20); Carbon Dioxide 22 mmol/L (22-30); Chloride 102 mmol/L (98-107); Glucose 196 mg/dL (74-99); Potassium 4.7 mmol/L (3.5-5.1); Sodium 132 mmol/L (137-145)
[2018-09-12] MEDS: CHOLESTYRAMINE (WITH SUGAR) 4 GM PACKET PO SCH ×4 (10:15→20:15)
[2018-09-12] MEDS: ACYCLOVIR 400 MG/10 ML CUP PO SCH ×3 (10:18→21:53)
[2018-09-12] MEDS: DEXAMETHASONE 4 MG TAB PO SCH ×3 (10:19→21:53)
[2018-09-12] MEDS: LIPASE 5,000/PROTEASE 17,000/AMYLASE 24,000 PO SCH ×6 (10:28→18:50)
[2018-09-12] MEDS: VANCOMYCIN 1,500 MG in SODIUM CHLORIDE 0.9% 250 ML IVPB SCH ×2 (10:35→15:57)
[2018-09-12 11:07] LABS: Appearance,Urine Cloudy (Clear); Bilirubin,Urine Negative (Negative); Blood,Urine Negative (Negative); Color,Urine Yellow; Glucose,Urine (UA) 1+ (Negative); Ketones,Urine Negative (Negative); Leukocyte Esterase,Urine Trace (Negative); Mucus,Urine Rare /hpf; Nitrite,Urine Negative (Negative); Protein,Urine 1+ (Negative); Urobilinogen,Urine <2.0 mg/dL (<2.0)
[2018-09-12 11:23] LABS: Specific Gravity,Urine >1.050 (1.001-1.035)
[2018-09-12 11:49] LABS: Glucose,Whole Blood 216 mg/dL (75-99)
--- NOTE | 2018-09-12 12:03 | P.CONS ---
History of Present Illness - Reason for Consult Consult date: 09/12/18 GI bleeding Requesting physician: Cheko Rincon - Chief Complaint Shortness of breath weakness - History of Present Illness 68-year-old gentleman admitted with profound weakness shortness of breath history of metastatic pancreatic cancer receiving chemotherapy. Patient un derwent EGD 10 days ago for evaluation of GI bleed melena with findings of mass in the duodenum with ulceration concerning for infiltrating pancreatic cancer biopsies were negative for malignancy. Hemoglobin at that time was 8.3. Admission hemoglobin 7.5 presently 7.9. Received 1 unit of blood. Ultrasound lower extremities negative for DVT. CT chest negative for PE. Abdominal ultrasound no ascites. Patient states his bowel movements are still dark near black like before. Review of Systems Constitutional: Denies fever, chills, sweats, weight gain, or loss. Weakness. HEENT: Negative for migraines, blurred vision or loss, earaches, drainage, tinnitus, oral mucosal lesions, dysphagia, or odynophagia. Cardiac: Negative for chest pain, arrhythmias, or palpitation. Respiratory: Negative for shortness of breath, hemoptysis, cough, or sputum production. Gastrointestinal: See HPI for pertinent findings. Genitourinary: Negative for hematuria, urgency, frequency, polyuria, dysuria, or penile discharge. Musculoskeletal: Negative for muscle aches, swelling, arthritis, and arthralgias. Neurologic: Negative for stroke or TIA. Endocrine: Negative for thyroid problems. Skin: Negative for rash or itching. Psychiatric: Negative history for depression and anxiety Past Medical History Past Medical History: Diabetes Mellitus Additional Past Medical History / Comment(s): stage 4 pancreatic cancer, [facility] History of Any Multi-Drug Resistant Organisms: None Reported Past Surgical History: No Surgical Hx Reported Past Psychological History: No Psychological Hx Reported Smoking Status: Former smoker Past Alcohol Use History: None Reported Past Drug Use History: None Reported - Past Family History Mother Additional Family Medical History / Comment(s): Lung Cancer at age 83 Father Family Medical History: CVA/TIA Medications and Allergies Home Medications Medication Instructions Recorded Confirmed Type Lovastatin [Mevacor] 40 mg PO HS 07/16/18 09/11/18 History ALPRAZolam [Xanax] 0.25 mg PO TID PRN 09/01/18 09/11/18 History Cholestyramine (with Sugar) 4 gm PO ACHS 09/01/18 09/11/18 History [Questran Packet] Cool's Solution 5 ml PO ACHS PRN 09/01/18 09/11/18 History Cyanocobalamin (Vitamin B-12) 1,000 mcg PO DAILY 09/01/18 09/11/18 History [Vitamin B-12] Folic Acid 1 mg PO DAILY 09/01/18 09/11/18 History HYDROcodone/APAP 10-325MG [[place] 1 tab PO QID 09/01/18 09/11/18 History 10-325] Lipase/Protease/Amylase [Mary Ellen Gómez 24,000 units PO TID BETWEEN MEALS 09/01/18 09/11/18 History 24,000 Units Capsule] Lipase/Protease/Amylase [Mary Ellen Gómez 48,000 units PO TID-W/MEALS 09/01/18 09/11/18 History 24,000 Units Capsule] Acyclovir [Zovirax] 400 mg PO TID #30 ml 09/04/18 09/11/18 Rx Aspirin 81 mg PO DAILY #1 chew 09/04/18 09/11/18 Rx Dexamethasone [Decadron] 4 mg PO TID #45 tablet 09/04/18 09/11/18 Rx Famotidine [Pepcid] 20 mg PO BID #60 tablet 09/04/18 09/11/18 Rx Fluconazole [Diflucan] 100 mg PO DAILY #10 tab 09/04/18 09/11/18 Rx Metoprolol Tartrate [Lopressor] 12.5 mg PO BID #60 tab 09/04/18 09/11/18 Rx Nitroglycerin Sl Tabs [Nitrostat] 0.4 mg SUBLINGUAL Q5M PRN #25 tab 09/04/18 09/11/18 Rx Insulin Degludec [Tresiba 10 units SQ HS 09/11/18 09/11/18 History Flextouch U-100] Allergies Allergy/AdvReac Type Severity Reaction Status Date / Time No Known Allergies Allergy Verified 09/11/18 12:14 Physical Exam Vitals: Vital Signs Temp Pulse Pulse Resp BP BP BP 09/12/18 11:40 67 14 104/78 09/12/18 11:30 65 14 105/67 09/12/18 11:20 73 12 105/67 09/12/18 11:10 69 13 105/67 09/12/18 11:00 68 16 97/67 09/12/18 10:50 73 18 97/67 09/12/18 10:40 76 12 97/67 09/12/18 10:30 73 12 105/72 09/12/18 10:20 68 13 105/72 09/12/18 10:10 79 15 96/68 09/12/18 10:00 73 14 100/66 09/12/18 09:50 74 13 100/66 09/12/18 09:40 73 13 92/64 09/12/18 09:30 76 13 90/55 09/12/18 09:20 73 13 90/55 09/12/18 09:10 67 14 98/61 09/12/18 09:00 71 16 89/59 09/12/18 08:50 70 13 89/59 09/12/18 08:45 97.7 F 76 89/59 09/12/18 08:40 72 12 91/61 09/12/18 08:30 65 13 94/57 09/12/18 08:20 71 12 94/57 09/12/18 08:10 74 14 104/56 09/12/18 08:00 97.7 F 74 13 91/56 09/12/18 07:50 70 11 L 91/56 09/12/18 07:42 97.7 F 73 15 91/63 09/12/18 07:40 69 11 L 86/55 09/12/18 07:30 85 13 83/58 09/12/18 07:20 90 12 83/58 09/12/18 07:12 97.8 F 71 12 83/58 09/12/18 07:10 80 11 L 85/61 09/12/18 07:02 98.0 F 84 15 85/61 09/12/18 07:00 82 14 87/52 09/12/18 06:50 80 15 87/52 09/12/18 06:40 85 14 87/45 09/12/18 06:30 78 9 L 09/12/18 06:29 83 12 09/12/18 06:07 90/61 09/12/18 05:58 88/58 09/12/18 05:51 84/54 09/12/18 05:41 89/51 83/57 09/12/18 05:36 86/47 09/12/18 05:31 86/48 09/12/18 05:28 77/45 09/12/18 05:15 80/45 09/12/18 04:55 89/61 09/12/18 04:30 88/47 09/12/18 04:20 86/47 09/12/18 04:10 86/51 09/12/18 04:00 97.1 F L 87 18 86/48 09/12/18 00:00 97.9 F 64 18 116/61 09/11/18 20:00 97.0 F L 64 18 107/73 09/11/18 18:10 62 09/11/18 18:00 88 09/11/18 17:50 66 09/11/18 17:40 113/76 09/11/18 17:30 113/76 09/11/18 17:20 113/76 09/11/18 17:10 113/76 09/11/18 17:00 99 F 93 18 114/76 09/11/18 16:50 114/76 09/11/18 16:40 68 15 114/76 09/11/18 16:30 72 15 114/76 09/11/18 16:20 70 5 L 114/76 09/11/18 16:10 69 12 114/76 09/11/18 16:00 98.1 F 64 65 14 119/75 103/60 09/11/18 15:50 67 13 119/75 09/11/18 15:40 65 14 119/75 09/11/18 15:31 63 11 L 119/75 09/11/18 15:16 116/71 09/11/18 15:10 116/71 09/11/18 15:00 116/71 09/11/18 14:50 72 13 116/71 09/11/18 14:40 64 12 116/71 09/11/18 14:30 62 10 L 113/70 09/11/18 14:20 64 16 113/70 09/11/18 14:10 69 16 113/70 09/11/18 14:00 66 17 115/70 09/11/18 13:58 66 18 115/70 09/11/18 13:50 67 18 09/11/18 13:40 67 18 04/18/19 13:30 16 102/70 09/11/18 13:26 84 16 105/70 09/11/18 13:20 67 15 102/70 09/11/18 13:10 69 14 102/70 09/11/18 13:00 70 13 95/67 09/11/18 12:50 70 13 95/67 09/11/18 12:40 70 12 91/56 09/11/18 12:30 91/56 09/11/18 12:25 71 09/11/18 12:20 68 11 L 91/56 09/11/18 12:17 68 09/11/18 12:10 73 14 09/11/18 12:00 71 19 79/60 Pulse Ox 09/12/18 11:40 100 09/12/18 11:30 100 09/12/18 11:20 100 09/12/18 11:10 94 L 09/12/18 11:00 92 L 09/12/18 10:50 97 09/12/18 10:40 100 09/12/18 10:30 94 L 09/12/18 10:20 98 09/12/18 10:10 100 09/12/18 10:00 100 09/12/18 09:50 84 L 09/12/18 09:40 100 09/12/18 09:30 93 L 09/12/18 09:20 93 L 09/12/18 09:10 100 09/12/18 09:00 92 L 09/12/18 08:50 100 09/12/18 08:45 09/12/18 08:40 100 09/12/18 08:30 100 09/12/18 08:20 100 09/12/18 08:10 100 09/12/18 08:00 100 09/12/18 07:50 99 09/12/18 07:42 09/12/18 07:40 98 09/12/18 07:30 100 09/12/18 07:20 80 L 09/12/18 07:12 100 09/12/18 07:10 99 09/12/18 07:02 100 09/12/18 07:00 100 09/12/18 06:50 100 09/12/18 06:40 100 09/12/18 06:30 09/12/18 06:29 09/12/18 06:07 09/12/18 05:58 09/12/18 05:51 09/12/18 05:41 09/12/18 05:36 09/12/18 05:31 09/12/18 05:28 09/12/18 05:15 09/12/18 04:55 09/12/18 04:30 09/12/18 04:20 09/12/18 04:10 09/12/18 04:00 100 09/12/18 00:00 100 09/11/18 20:00 100 09/11/18 18:10 09/11/18 18:00 09/11/18 17:50 09/11/18 17:40 09/11/18 17:30 09/11/18 17:20 09/11/18 17:10 09/11/18 17:00 98 09/11/18 16:50 09/11/18 16:40 100 09/11/18 16:30 100 09/11/18 16:20 100 09/11/18 16:10 100 09/11/18 16:00 100 09/11/18 15:50 100 09/11/18 15:40 100 09/11/18 15:31 100 09/11/18 15:16 09/11/18 15:10 09/11/18 15:00 09/11/18 14:50 100 09/11/18 14:40 100 09/11/18 14:30 100 09/11/18 14:20 100 09/11/18 14:10 100 09/11/18 14:00 99 09/11/18 13:58 99 09/11/18 13:50 100 09/11/18 13:40 100 09/11/18 13:30 100 09/11/18 13:26 98 09/11/18 13:20 100 09/11/18 13:10 100 09/11/18 13:00 100 09/11/18 12:50 100 09/11/18 12:40 09/11/18 12:30 09/11/18 12:25 09/11/18 12:20 09/11/18 12:17 09/11/18 12:10 09/11/18 12:00 Intake and Output 09/11/18 09/12/18 09/12/18 22:59 06:59 14:59 Intake Total 0 1260 Output Total 650 195 Balance -650 1065 Intake: Intake, IV Titration 950 Amount Piperacillin-Tazobactam 3 100 .375 gm In Sodium Chloride 0.9% 100 ml @ 25 mls/hr IVPB Q8HR JOSAFAT Rx# :[id number] Sodium Chloride 0.9% 1, 600 000 ml @ 150 mls/hr IV . Q6H40M JOSAFAT Rx#:[id number] Vancomycin 1,500 mg In 250 Sodium Chloride 0.9% 250 ml @ 125 mls/hr IVPB Q8HR JOSAFAT Rx#:[id number] Blood Product 0 310 Rc Pheresis 2 As3 Unit 0 310 [id number] Output: Urine 650 195 Other: Voiding Method Indwelling Catheter Indwelling Catheter Indwelling Catheter # Bowel Movements 1 2 Weight 89 kg General appearance: The patient is alert, oriented, in no acute distress. Weak fatigued. HET: Head is normocephalic and atraumatic. Pupils are equal and reactive. Oropharynx is clear without lesions. Neck: Supple without lymphadenopathy. Trachea midline. Heart: S1 S2. Regular rate and rhythm. Lungs: No crackles or wheezes are heard. Abdomen: Soft, nontender, nondistended with bowel sounds. No peritoneal signs. No palpable organomegaly or masses. Extremities: Normal skin color and turgor. No cyanosis, rash, ulceration, clubbing, or edema. Radial and pedal pulses are 2/4 bilaterally. Neurological: No focal deficits. Strength and sensation are grossly intact. Results CBC & Chem 7: 09/12/18 09:16 09/12/18 09:16 Labs: Abnormal Lab Results - Last 24 Hours (Table) 09/11/18 09/11/18 09/11/18 Range/Units 12:15 12:15 12:15 WBC 23.0 H (3.8-10.6) k/uL RBC 3.39 L (4.30-5.90) m/uL Hgb 8.2 L (13.0-17.5) gm/dL Hct 28.7 L (39.0-53.0) % MCH 24.2 L (25.0-35.0) pg MCHC 28.6 L (31.0-37.0) g/dL RDW 22.4 H (11.5-15.5) % Plt Count 789 H D (150-450) k/uL Neutrophils # 21.1 H (1.3-7.7) k/uL Neutrophils # (Manual) (1.3-7.7) k/uL Lymphocytes # 0.6 L (1.0-4.8) k/uL Lymphocytes # (Manual) (1.0-4.8) k/uL Metamyelocytes # (Man) (0) k/uL APTT (22.0-30.0) sec Sodium 130 L (137-145) mmol/L Potassium 5.2 H (3.5-5.1) mmol/L BUN 25 H (9-20) mg/dL Creatinine 0.50 L (0.66-1.25) mg/dL Glucose 326 H (74-99) mg/dL POC Glucose (mg/dL) (75-99) mg/dL Plasma Lactic Acid Tan 3.5 H* (0.7-2.0) mmol/L Calcium (8.4-10.2) mg/dL Alkaline Phosphatase 187 H (38-126) U/L Total Protein 5.0 L (6.3-8.2) g/dL Albumin 2.8 L (3.5-5.0) g/dL Ur Specific [place] (1.001-1.035) Urine Protein (Negative) Urine Glucose (UA) (Negative) Ur Leukocyte Esterase (Negative) Urine WBC (0-5) /hpf Urine Mucus (None) /hpf Crossmatch 09/11/18 09/11/18 09/11/18 Range/Units 12:15 12:15 14:54 WBC (3.8-10.6) k/uL RBC (4.30-5.90) m/uL Hgb (13.0-17.5) gm/dL Hct (39.0-53.0) % MCH (25.0-35.0) pg MCHC (31.0-37.0) g/dL RDW (11.5-15.5) % Plt Count (150-450) k/uL Neutrophils # (1.3-7.7) k/uL Neutrophils # (Manual) (1.3-7.7) k/uL Lymphocytes # (1.0-4.8) k/uL Lymphocytes # (Manual) (1.0-4.8) k/uL Metamyelocytes # (Man) (0) k/uL APTT 19.2 L (22.0-30.0) sec Sodium (137-145) mmol/L Potassium (3.5-5.1) mmol/L BUN (9-20) mg/dL Creatinine (0.66-1.25) mg/dL Glucose (74-99) mg/dL POC Glucose (mg/dL) (75-99) mg/dL Plasma Lactic Acid Tan (0.7-2.0) mmol/L Calcium (8.4-10.2) mg/dL Alkaline Phosphatase (38-126) U/L Total Protein (6.3-8.2) g/dL Albumin (3.5-5.0) g/dL Ur Specific [place] (1.001-1.035) Urine Protein Trace H (Negative) Urine Glucose (UA) 4+ H (Negative) Ur Leukocyte Esterase (Negative) Urine WBC (0-5) /hpf Urine Mucus (None) /hpf Crossmatch See Detail 09/11/18 09/11/18 09/11/18 Range/Units 16:09 18:31 20:39 WBC (3.8-10.6) k/uL RBC (4.30-5.90) m/uL Hgb (13.0-17.5) gm/dL Hct (39.0-53.0) % MCH (25.0-35.0) pg MCHC (31.0-37.0) g/dL RDW (11.5-15.5) % Plt Count (150-450) k/uL Neutrophils # (1.3-7.7) k/uL Neutrophils # (Manual) (1.3-7.7) k/uL Lymphocytes # (1.0-4.8) k/uL Lymphocytes # (Manual) (1.0-4.8) k/uL Metamyelocytes # (Man) (0) k/uL APTT (22.0-30.0) sec Sodium (137-145) mmol/L Potassium (3.5-5.1) mmol/L BUN (9-20) mg/dL Creatinine (0.66-1.25) mg/dL Glucose (74-99) mg/dL POC Glucose (mg/dL) 329 H 291 H (75-99) mg/dL Plasma Lactic Acid Tan 2.3 H* (0.7-2.0) mmol/L Calcium (8.4-10.2) mg/dL Alkaline Phosphatase (38-126) U/L Total Protein (6.3-8.2) g/dL Albumin (3.5-5.0) g/dL Ur Specific [place] (1.001-1.035) Urine Protein (Negative) Urine Glucose (UA) (Negative) Ur Leukocyte Esterase (Negative) Urine WBC (0-5) /hpf Urine Mucus (None) /hpf Crossmatch 09/11/18 09/12/18 09/12/18 Range/Units 21:56 02:18 02:18 WBC 20.3 H (3.8-10.6) k/uL RBC 2.97 L (4.30-5.90) m/uL Hgb 7.5 L (13.0-17.5) gm/dL Hct 25.5 L (39.0-53.0) % MCH (25.0-35.0) pg MCHC 29.4 L (31.0-37.0) g/dL RDW 22.5 H (11.5-15.5) % Plt Count 591 H (150-450) k/uL Neutrophils # (1.3-7.7) k/uL Neutrophils # (Manual) 18.20 H (1.3-7.7) k/uL Lymphocytes # (1.0-4.8) k/uL Lymphocytes # (Manual) 0.81 L (1.0-4.8) k/uL Metamyelocytes # (Man) 0.20 H (0) k/uL APTT (22.0-30.0) sec Sodium (137-145) mmol/L Potassium (3.5-5.1) mmol/L BUN (9-20) mg/dL Creatinine (0.66-1.25) mg/dL Glucose (74-99) mg/dL POC Glucose (mg/dL) (75-99) mg/dL Plasma Lactic Acid Tan 3.3 H* 3.9 H* (0.7-2.0) mmol/L Calcium (8.4-10.2) mg/dL Alkaline Phosphatase (38-126) U/L Total Protein (6.3-8.2) g/dL Albumin (3.5-5.0) g/dL Ur Specific [place] (1.001-1.035) Urine Protein (Negative) Urine Glucose (UA) (Negative) Ur Leukocyte Esterase (Negative) Urine WBC (0-5) /hpf Urine Mucus (None) /hpf Crossmatch 09/12/18 09/12/18 09/12/18 Range/Units 05:54 06:34 07:16 WBC (3.8-10.6) k/uL RBC (4.30-5.90) m/uL Hgb (13.0-17.5) gm/dL Hct (39.0-53.0) % MCH (25.0-35.0) pg MCHC (31.0-37.0) g/dL RDW (11.5-15.5) % Plt Count (150-450) k/uL Neutrophils # (1.3-7.7) k/uL Neutrophils # (Manual) (1.3-7.7) k/uL Lymphocytes # (1.0-4.8) k/uL Lymphocytes # (Manual) (1.0-4.8) k/uL Metamyelocytes # (Man) (0) k/uL APTT (22.0-30.0) sec Sodium (137-145) mmol/L Potassium (3.5-5.1) mmol/L BUN (9-20) mg/dL Creatinine (0.66-1.25) mg/dL Glucose (74-99) mg/dL POC Glucose (mg/dL) 205 H 209 H 224 H (75-99) mg/dL Plasma Lactic Acid Tan (0.7-2.0) mmol/L Calcium (8.4-10.2) mg/dL Alkaline Phosphatase (38-126) U/L Total Protein (6.3-8.2) g/dL Albumin (3.5-5.0) g/dL Ur Specific [place] (1.001-1.035) Urine Protein (Negative) Urine Glucose (UA) (Negative) Ur Leukocyte Esterase (Negative) Urine WBC (0-5) /hpf Urine Mucus (None) /hpf Crossmatch 09/12/18 09/12/18 09/12/18 Range/Units 09:16 09:16 10:45 WBC 21.4 H (3.8-10.6) k/uL RBC 3.09 L (4.30-5.90) m/uL Hgb 7.9 L (13.0-17.5) gm/dL Hct 26.1 L (39.0-53.0) % MCH (25.0-35.0) pg MCHC 30.2 L (31.0-37.0) g/dL RDW 21.7 H (11.5-15.5) % Plt Count 479 H (150-450) k/uL Neutrophils # 19.7 H (1.3-7.7) k/uL Neutrophils # (Manual) (1.3-7.7) k/uL Lymphocytes # 0.4 L (1.0-4.8) k/uL Lymphocytes # (Manual) (1.0-4.8) k/uL Metamyelocytes # (Man) (0) k/uL APTT (22.0-30.0) sec Sodium 132 L (137-145) mmol/L Potassium (3.5-5.1) mmol/L BUN 23 H (9-20) mg/dL Creatinine 0.43 L (0.66-1.25) mg/dL Glucose 196 H (74-99) mg/dL POC Glucose (mg/dL) (75-99) mg/dL Plasma Lactic Acid Tan (0.7-2.0) mmol/L Calcium 8.0 L (8.4-10.2) mg/dL Alkaline Phosphatase (38-126) U/L Total Protein (6.3-8.2) g/dL Albumin (3.5-5.0) g/dL Ur Specific [place] >1.050 H (1.001-1.035) Urine Protein 1+ H (Negative) Urine Glucose (UA) 1+ H (Negative) Ur Leukocyte Esterase Trace H (Negative) Urine WBC 7 H (0-5) /hpf Urine Mucus Rare H (None) /hpf Crossmatch 09/12/18 Range/Units 11:48 WBC (3.8-10.6) k/uL RBC (4.30-5.90) m/uL Hgb (13.0-17.5) gm/dL Hct (39.0-53.0) % MCH (25.0-35.0) pg MCHC (31.0-37.0) g/dL RDW (11.5-15.5) % Plt Count (150-450) k/uL Neutrophils # (1.3-7.7) k/uL Neutrophils # (Manual) (1.3-7.7) k/uL Lymphocytes # (1.0-4.8) k/uL Lymphocytes # (Manual) (1.0-4.8) k/uL Metamyelocytes # (Man) (0) k/uL APTT (22.0-30.0) sec Sodium (137-145) mmol/L Potassium (3.5-5.1) mmol/L BUN (9-20) mg/dL Creatinine (0.66-1.25) mg/dL Glucose (74-99) mg/dL POC Glucose (mg/dL) 216 H (75-99) mg/dL Plasma Lactic Acid Tan (0.7-2.0) mmol/L Calcium (8.4-10.2) mg/dL Alkaline Phosphatase (38-126) U/L Total Protein (6.3-8.2) g/dL Albumin (3.5-5.0) g/dL Ur Specific [place] (1.001-1.035) Urine Protein (Negative) Urine Glucose (UA) (Negative) Ur Leukocyte Esterase (Negative) Urine WBC (0-5) /hpf Urine Mucus (None) /hpf Crossmatch Microbiology - Last 24 Hours (Table) 09/11/18 14:54 Urine Culture - Preliminary Urine,Catheterized CT scan - chest: report reviewed (Dr. Amrbosio) US - abdomen: report reviewed (Dr. Ambrosio) Venous US: report reviewed (Dr. Ambrosio) Assessment and Plan (1) GI bleed Narrative/Plan: 68-year-old male metastatic pancreatic cancer presents with symptomatic anemia G I bleed passage of dark melanotic bowel movements component of acute blood loss status post EGD 10 days ago with findings of duodenal mass suspect invasion from pancreatic head mass biopsies negative for malignancy. Current Visit: No Status: Acute Code(s): K92.2 - GASTROINTESTINAL HEMORRHAGE, UNSPECIFIED SNOMED Code(s): 81268672 (2) Anemia Current Visit: Yes Status: Acute Code(s): D64.9 - ANEMIA, UNSPECIFIED SNOMED Code(s): 339485802 (3) Metastasis from pancreatic cancer Current Visit: Yes Status: Acute Code(s): C79.9 - SECONDARY MALIGNANT NEOPLASM OF UNSPECIFIED SITE; C25.9 - MALIGNANT NEOPLASM OF PANCREAS, UNSPECIFIED SNOMED Code(s): 214100595 (4) Duodenal mass Current Visit: No Status: Acute Code(s): K31.89 - OTHER DISEASES OF STOMACH AND DUODENUM SNOMED Code(s): 924773521 Plan: 1. H&H monitoring. Blood transfusion as indicated. Protonix 40 mg twice daily. Recent surveillance EGD not planned at this time. Oncology consultation. We'll follow with you. Thank you for this kind referral and the opportunity to participate in the care of your patient. This consultation was discussed with Dr. Ambrosio. The impression and plan of care have been directed as dictated.
[2018-09-12 13:23] LABS: Glucose,Whole Blood 200 mg/dL (75-99)
[2018-09-12] MEDS: FOLIC ACID 1 MG TAB PO SCH (13:27)
--- NOTE | 2018-09-12 14:15 | CONS ---
CONSULTATION CHIEF COMPLAINT: Hypotension. Roberto is a 68-year-old gentleman with history of metastatic pancreatic cancer who was admitted to hospital with symptoms of shortness of breath, fatigue and tiredness and is admitted to ICU because of hypotension. He denies chest pain. At last admission, there was mild troponins and he was thought to have had a non ST-segment elevation [place] that was being managed with optimal medical therapy. MEDICATIONS: Medications at home included Lopressor 12.5 b.i.d., Mevacor, [place], [place], folic acid, Pepcid, Decadron, Questran, aspirin, Xanax. ALLERGIES: No known drug allergies. PAST MEDICAL HISTORY: Past medical history is significant for type 2 diabetes, pancreatic cancer. REVIEW OF SYSTEMS: CONSTITUTIONAL: Significant for fatigue and tiredness. CARDIAC: Negative. RESPIRATORY: Shortness of breath. GI: Negative. GENITOURINARY: Negative. ALLERGY/IMMUNOLOGY: Negative. SKIN: Negative. MUSCULOSKELETAL: Significant for arthritis. PSYCHOSOCIAL: Negative. ENDOCRINE: Negative. HEMATOLOGICAL: Negative. DERM: Negative. CONSTITUTIONAL: Negative. ONCOLOGICAL: Significant for pancreatic cancer. PHYSICAL EXAMINATION: On exam, heart rate is 73 beats per minute, blood pressure 90/55, respiratory rate is 13. Chest exam reveals diminished air entry at the bases. Heart exam reveals first and second heart sounds. No gallop. Examination of extremities did not reveal any edema. Peripheral pulses are felt. ASSESSMENT: 1. Hypotension. 2. Metastatic cancer. I will obtain a 2D echo on him to evaluate his LV function. No further cardiac workup from my standpoint. MMODL / IJN: [id number] /
--- NOTE | 2018-09-12 14:46 | P.CNPUL ---
History of Present Illness Consult date: 09/12/18 Requesting physician: Cheko Rincon Reason for consult: other (Hypotension, ICU management) Chief complaint: Weakness and shortness of breath. History of present illness: This is a 68-year-old white male with history of metastatic pancreatic cancer, receiving chemotherapy. Patient was admitted to the floor with a few days' history of increased weakness, and some shortness of breath. Patient had previous history of GI bleeding and anemia, underwent EGD about 10 days ago and he was found to have a mass in the duodenum with ulceration, and biopsy was negative, although there is a major concern that this could be related to his pancreatic cancer. Patient presented with a hemoglobin of 7.5, and while on the medical floor he became hypotensive hence arrangements were made for him to tuttle sfer to the ICU, given fluid boluses, and given a unit of packed RBCs hemoglobin went up from 7.5-7.9 at present. During my evaluation, patient was feeling better, his blood pressure was normal, and he was receiving fluids 150 mL per hour. His CT of the chest was negative for pulmonary embolism abdominal ultrasound was negative for ascites and his lower extremities were negative for deep vein thrombosis. Patient is complaining of black bowel movements intermittently. Considering the patient was transferred to the ICU, I was asked to see him on consultation. Review of Systems Constitutional: Denies fever, chills, sweats, however the patient is complaining of weakness, and weight loss over the last few months. HEENT: Negative for migraines, blurred vision or loss, earaches, drainage, tinnitus, oral mucosal lesions, dysphagia, or odynophagia. Cardiac: No chest pain, palpitations, or diaphoresis. Respiratory: Minimal shortness of breath no cough no wheezing no hemoptysis no chest pain.. Gastrointestinal: Recent history of GI bleeding and black stools intermittently. Previous EGD showed duodenal mass. Genitourinary: No dysuria frequency urgency or hematuria. Musculoskeletal: Denies arthralgia or myalgia Neurologic: No headache no blurred vision no dizziness.. Endocrine: No symptoms of hypothyroidism or diabetes.. Skin: Denies pruritus or rash Psychiatric: Denies symptoms of active depression Past Medical History Past Medical History: Diabetes Mellitus Additional Past Medical History / Comment(s): stage 4 pancreatic cancer, last chemo 08/27, [facility] place 08/18 History of Any Multi-Drug Resistant Organisms: None Reported Past Surgical History: No Surgical Hx Reported Past Psychological History: No Psychological Hx Reported Smoking Status: Former smoker Past Alcohol Use History: None Reported Past Drug Use History: None Reported - Past Family History Mother Additional Family Medical History / Comment(s): Lung Cancer at age 83 Father Family Medical History: CVA/TIA Medications and Allergies Home Medications Medication Instructions Recorded Confirmed Type Lovastatin [Mevacor] 40 mg PO HS 07/16/18 09/11/18 History ALPRAZolam [Xanax] 0.25 mg PO TID PRN 09/01/18 09/11/18 History Cholestyramine (with Sugar) 4 gm PO ACHS 09/01/18 09/11/18 History [Questran Packet] Cool's Solution 5 ml PO ACHS PRN 09/01/18 09/11/18 History Cyanocobalamin (Vitamin B-12) 1,000 mcg PO DAILY 09/01/18 09/11/18 History [Vitamin B-12] Folic Acid 1 mg PO DAILY 09/01/18 09/11/18 History HYDROcodone/APAP 10-325MG [[place] 1 tab PO QID 09/01/18 09/11/18 History 10-325] Lipase/Protease/Amylase [Mary Ellen Gómez 24,000 units PO TID BETWEEN MEALS 09/01/18 09/11/18 History 24,000 Units Capsule] Lipase/Protease/Amylase [Mary Ellen Gómez 48,000 units PO TID-W/MEALS 09/01/18 09/11/18 History 24,000 Units Capsule] Acyclovir [Zovirax] 400 mg PO TID #30 ml 09/04/18 09/11/18 Rx Aspirin 81 mg PO DAILY #1 chew 09/04/18 09/11/18 Rx Dexamethasone [Decadron] 4 mg PO TID #45 tablet 09/04/18 09/11/18 Rx Famotidine [Pepcid] 20 mg PO BID #60 tablet 09/04/18 09/11/18 Rx Fluconazole [Diflucan] 100 mg PO DAILY #10 tab 09/04/18 09/11/18 Rx Metoprolol Tartrate [Lopressor] 12.5 mg PO BID #60 tab 09/04/18 09/11/18 Rx Nitroglycerin Sl Tabs [Nitrostat] 0.4 mg SUBLINGUAL Q5M PRN #25 tab 09/04/18 09/11/18 Rx Insulin Degludec [Tresiba 10 units SQ HS 09/11/18 09/11/18 History Flextouch U-100] Allergies Allergy/AdvReac Type Severity Reaction Status Date / Time No Known Allergies Allergy Verified 09/11/18 12:14 Physical Exam Vitals: Vital Signs Temp Pulse Pulse Resp BP BP BP 09/12/18 13:30 70 15 111/73 09/12/18 13:20 73 13 111/73 09/12/18 13:10 67 13 111/73 09/12/18 13:00 70 13 95/72 09/12/18 12:50 71 13 95/72 09/12/18 12:40 70 14 95/72 09/12/18 12:30 66 15 113/70 09/12/18 12:20 69 13 113/70 09/12/18 12:10 75 12 113/70 09/12/18 12:00 97.6 F 72 15 104/78 09/12/18 11:50 64 14 104/78 09/12/18 11:40 67 14 104/78 09/12/18 11:30 65 14 105/67 09/12/18 11:20 73 12 105/67 09/12/18 11:10 69 13 105/67 09/12/18 11:00 68 16 97/67 09/12/18 10:50 73 18 97/67 09/12/18 10:40 76 12 97/67 09/12/18 10:30 73 12 105/72 09/12/18 10:20 68 13 105/72 09/12/18 10:10 79 15 96/68 09/12/18 10:00 73 14 100/66 09/12/18 09:50 74 13 100/66 09/12/18 09:40 73 13 92/64 09/12/18 09:30 76 13 90/55 09/12/18 09:20 73 13 90/55 09/12/18 09:10 67 14 98/61 09/12/18 09:00 71 16 89/59 09/12/18 08:50 70 13 89/59 09/12/18 08:45 97.7 F 76 89/59 09/12/18 08:40 72 12 91/61 09/12/18 08:30 65 13 94/57 09/12/18 08:20 71 12 94/57 09/12/18 08:10 74 14 104/56 09/12/18 08:00 97.7 F 74 13 91/56 09/12/18 07:50 70 11 L 91/56 09/12/18 07:42 97.7 F 73 15 91/63 09/12/18 07:40 69 11 L 86/55 09/12/18 07:30 85 13 83/58 09/12/18 07:20 90 12 83/58 09/12/18 07:12 97.8 F 71 12 83/58 09/12/18 07:10 80 11 L 85/61 09/12/18 07:02 98.0 F 84 15 85/61 09/12/18 07:00 82 14 87/52 09/12/18 06:50 80 15 87/52 09/12/18 06:40 85 14 87/45 09/12/18 06:30 78 9 L 09/12/18 06:29 83 12 09/12/18 06:07 90/61 09/12/18 05:58 88/58 09/12/18 05:51 84/54 09/12/18 05:41 89/51 83/57 09/12/18 05:36 86/47 09/12/18 05:31 86/48 09/12/18 05:28 77/45 09/12/18 05:15 80/45 09/12/18 04:55 89/61 09/12/18 04:30 88/47 09/12/18 04:20 86/47 09/12/18 04:10 86/51 09/12/18 04:00 97.1 F L 87 18 86/48 09/12/18 00:00 97.9 F 64 18 116/61 09/11/18 20:00 97.0 F L 64 18 107/73 09/11/18 18:10 62 09/11/18 18:00 88 09/11/18 17:50 66 09/11/18 17:40 113/76 09/11/18 17:30 113/76 09/11/18 17:20 113/76 09/11/18 17:10 113/76 09/11/18 17:00 99 F 93 18 114/76 09/11/18 16:50 114/76 09/11/18 16:40 68 15 114/76 09/11/18 16:30 72 15 114/76 09/11/18 16:20 70 5 L 114/76 09/11/18 16:10 69 12 114/76 09/11/18 16:00 98.1 F 64 65 14 119/75 103/60 09/11/18 15:50 67 13 119/75 09/11/18 15:40 65 14 119/75 09/11/18 15:31 63 11 L 119/75 09/11/18 15:16 116/71 09/11/18 15:10 116/71 09/11/18 15:00 116/71 09/11/18 14:50 72 13 116/71 09/11/18 14:40 64 12 116/71 Pulse Ox 09/12/18 13:30 100 09/12/18 13:20 100 09/12/18 13:10 100 09/12/18 13:00 100 09/12/18 12:50 100 09/12/18 12:40 100 09/12/18 12:30 100 09/12/18 12:20 85 L 09/12/18 12:10 100 09/12/18 12:00 94 L 09/12/18 11:50 100 09/12/18 11:40 100 09/12/18 11:30 100 09/12/18 11:20 100 09/12/18 11:10 94 L 09/12/18 11:00 92 L 09/12/18 10:50 97 09/12/18 10:40 100 09/12/18 10:30 94 L 09/12/18 10:20 98 09/12/18 10:10 100 09/12/18 10:00 100 09/12/18 09:50 84 L 09/12/18 09:40 100 09/12/18 09:30 93 L 09/12/18 09:20 93 L 09/12/18 09:10 100 09/12/18 09:00 92 L 09/12/18 08:50 100 09/12/18 08:45 09/12/18 08:40 100 09/12/18 08:30 100 09/12/18 08:20 100 09/12/18 08:10 100 09/12/18 08:00 100 09/12/18 07:50 99 09/12/18 07:42 09/12/18 07:40 98 09/12/18 07:30 100 09/12/18 07:20 80 L 09/12/18 07:12 100 09/12/18 07:10 99 09/12/18 07:02 100 09/12/18 07:00 100 09/12/18 06:50 100 09/12/18 06:40 100 09/12/18 06:30 09/12/18 06:29 09/12/18 06:07 09/12/18 05:58 09/12/18 05:51 09/12/18 05:41 09/12/18 05:36 09/12/18 05:31 09/12/18 05:28 09/12/18 05:15 09/12/18 04:55 09/12/18 04:30 09/12/18 04:20 09/12/18 04:10 09/12/18 04:00 100 09/12/18 00:00 100 09/11/18 20:00 100 09/11/18 18:10 09/11/18 18:00 09/11/18 17:50 09/11/18 17:40 09/11/18 17:30 09/11/18 17:20 09/11/18 17:10 09/11/18 17:00 98 09/11/18 16:50 09/11/18 16:40 100 09/11/18 16:30 100 09/11/18 16:20 100 09/11/18 16:10 100 09/11/18 16:00 100 09/11/18 15:50 100 09/11/18 15:40 100 09/11/18 15:31 100 09/11/18 15:16 09/11/18 15:10 09/11/18 15:00 09/11/18 14:50 100 09/11/18 14:40 100 Intake and Output 09/11/18 09/12/18 09/12/18 22:59 06:59 14:59 Intake Total 0 1560 Output Total 650 295 Balance -650 1265 Intake: Intake, IV Titration 1250 Amount Piperacillin-Tazobactam 3 100 .375 gm In Sodium Chloride 0.9% 100 ml @ 25 mls/hr IVPB Q8HR [facility] Rx# :[id number] Sodium Chloride 0.9% 1, 900 000 ml @ 150 mls/hr IV . Q6H40M [facility] Rx#:[id number] Vancomycin 1,500 mg In 250 Sodium Chloride 0.9% 250 ml @ 125 mls/hr IVPB Q8HR [facility] Rx#:[id number] Blood Product 0 310 Rc Pheresis 2 As3 Unit 0 310 [id number] Output: Urine 650 295 Other: Voiding Method Indwelling Catheter Indwelling Catheter Indwelling Catheter # Bowel Movements 1 2 2 Weight 89 kg Physical Exam: Revealed a 68-year-old white male, very pleasant, chronically ill looking. Pale, in no distress Head: Atraumatic, normocephalic. HEENT:[Neck is supple.] [No neck masses.] [No thyromegaly.] [No JVD.] PERRLA, EOMI, no icterus. Chest: [Clear throughout, no crackles, no rhonchi, no wheezes.] Cardiac Exam: [Normal S1 and S2, no S3 gallop, no murmur.] Abdomen: [Soft, nontender, no megaly, no rebound, no guarding, normal bowel sounds.] Extremities: [No clubbing, trace of edema, no cyanosis.] Good distal pulses bilaterally Neurological Exam: [No focal neurologic deficit.] Alert oriented 3 Psychiatric: Normal mood, affect and mental status examination. Lymphatics: No lymphadenopathy. Skin: No rashes Results - Laboratory Findings CBC and BMP: 09/12/18 09:16 09/12/18 09:16 PT/INR, D-dimer PT 11.7 sec (9.0-12.0) 09/11/18 12:15 INR 1.1 (<1.2) 09/11/18 12:15 Abnormal lab findings: Abnormal Labs 09/11/18 09/11/18 09/11/18 12:15 12:15 12:15 WBC 23.0 H RBC 3.39 L Hgb 8.2 L Hct 28.7 L MCH 24.2 L MCHC 28.6 L RDW 22.4 H Plt Count 789 H D Neutrophils # 21.1 H Neutrophils # (Manual) Lymphocytes # 0.6 L Lymphocytes # (Manual) Metamyelocytes # (Man) APTT Sodium 130 L Potassium 5.2 H BUN 25 H Creatinine 0.50 L Glucose 326 H POC Glucose (mg/dL) Plasma Lactic Acid Tan 3.5 H* Calcium Alkaline Phosphatase 187 H Total Protein 5.0 L Albumin 2.8 L Ur Specific [place] Urine Protein Urine Glucose (UA) Ur Leukocyte Esterase Urine WBC Urine Mucus Crossmatch 09/11/18 09/11/18 09/11/18 12:15 12:15 14:54 WBC RBC Hgb Hct MCH MCHC RDW Plt Count Neutrophils # Neutrophils # (Manual) Lymphocytes # Lymphocytes # (Manual) Metamyelocytes # (Man) APTT 19.2 L Sodium Potassium BUN Creatinine Glucose POC Glucose (mg/dL) Plasma Lactic Acid Tan Calcium Alkaline Phosphatase Total Protein Albumin Ur Specific [place] Urine Protein Trace H Urine Glucose (UA) 4+ H Ur Leukocyte Esterase Urine WBC Urine Mucus Crossmatch See Detail 09/11/18 09/11/18 09/11/18 16:09 18:31 20:39 WBC RBC Hgb Hct MCH MCHC RDW Plt Count Neutrophils # Neutrophils # (Manual) Lymphocytes # Lymphocytes # (Manual) Metamyelocytes # (Man) APTT Sodium Potassium BUN Creatinine Glucose POC Glucose (mg/dL) 329 H 291 H Plasma Lactic Acid Tan 2.3 H* Calcium Alkaline Phosphatase Total Protein Albumin Ur Specific [place] Urine Protein Urine Glucose (UA) Ur Leukocyte Esterase Urine WBC Urine Mucus Crossmatch 09/11/18 09/12/18 09/12/18 21:56 02:18 02:18 WBC 20.3 H RBC 2.97 L Hgb 7.5 L Hct 25.5 L MCH MCHC 29.4 L RDW 22.5 H Plt Count 591 H Neutrophils # Neutrophils # (Manual) 18.20 H Lymphocytes # Lymphocytes # (Manual) 0.81 L Metamyelocytes # (Man) 0.20 H APTT Sodium Potassium BUN Creatinine Glucose POC Glucose (mg/dL) Plasma Lactic Acid Tan 3.3 H* 3.9 H* Calcium Alkaline Phosphatase Total Protein Albumin Ur Specific [place] Urine Protein Urine Glucose (UA) Ur Leukocyte Esterase Urine WBC Urine Mucus Crossmatch 09/12/18 09/12/18 09/12/18 05:54 06:34 07:16 WBC RBC Hgb Hct MCH MCHC RDW Plt Count Neutrophils # Neutrophils # (Manual) Lymphocytes # Lymphocytes # (Manual) Metamyelocytes # (Man) APTT Sodium Potassium BUN Creatinine Glucose POC Glucose (mg/dL) 205 H 209 H 224 H Plasma Lactic Acid Tan Calcium Alkaline Phosphatase Total Protein Albumin Ur Specific [place] Urine Protein Urine Glucose (UA) Ur Leukocyte Esterase Urine WBC Urine Mucus Crossmatch 09/12/18 09/12/18 09/12/18 09:16 09:16 10:45 WBC 21.4 H RBC 3.09 L Hgb 7.9 L Hct 26.1 L MCH MCHC 30.2 L RDW 21.7 H Plt Count 479 H Neutrophils # 19.7 H Neutrophils # (Manual) Lymphocytes # 0.4 L Lymphocytes # (Manual) Metamyelocytes # (Man) APTT Sodium 132 L Potassium BUN 23 H Creatinine 0.43 L Glucose 196 H POC Glucose (mg/dL) Plasma Lactic Acid Tan Calcium 8.0 L Alkaline Phosphatase Total Protein Albumin Ur Specific [place] >1.050 H Urine Protein 1+ H Urine Glucose (UA) 1+ H Ur Leukocyte Esterase Trace H Urine WBC 7 H Urine Mucus Rare H Crossmatch 09/12/18 09/12/18 11:48 13:21 WBC RBC Hgb Hct MCH MCHC RDW Plt Count Neutrophils # Neutrophils # (Manual) Lymphocytes # Lymphocytes # (Manual) Metamyelocytes # (Man) APTT Sodium Potassium BUN Creatinine Glucose POC Glucose (mg/dL) 216 H 200 H Plasma Lactic Acid Tan Calcium Alkaline Phosphatase Total Protein Albumin Ur Specific [place] Urine Protein Urine Glucose (UA) Ur Leukocyte Esterase Urine WBC Urine Mucus Crossmatch - Diagnostic Findings CT scan - chest: image reviewed (Small right pleural effusion and right basilar atelectasis is noted otherwise unremarkable.) Additional studies: Ultrasound of the chest showed trace left pleural effusion, not enough to consider thoracentesis. Assessment and Plan Assessment: Impression: 1 Hypertension most likely secondary to GI bleeding, strongly doubt sepsis, patient responded well to blood transfusion and fluids. Did not require any pressors. 2 anemia secondary to GI blood loss. And GI bleeding most likely source is the duodenal mass. This was felt to be invasion from the pancreatic head into the duodenum. 3 metastatic pancreatic cancer 4 shortness of breath secondary to anemia and small pleural effusion, not large enough to consider thoracentesis. 5 moderate protein calorie malnutrition 6 medical debility secondary to his underlying metastatic pancreatic cancer. Recommendation: Continue present treatment plan including fluids, blood transfusion, keep hemoglobin above 7 at all times, agree with empiric antibiotics, however if cultures all come back negative the antibiotics could be discontinued. Patient could be transferred out of the ICU today once a bed becomes available and he will likely need to be placed on a monitor bed on the cardiac floor. We'll continue to follow. Prognosis is definitely poor and guarded. Had a long discussion with him and his family at bedside regarding his prognosis and what to expect. Time with Patient: Greater than 30
[2018-09-12] MEDS: ATORVASTATIN 10 MG TAB PO SCH (20:14)
[2018-09-12 20:23] LABS: Glucose,Whole Blood 172 mg/dL (75-99)
[2018-09-12] MEDS ORDERED: FAMOTIDINE 20 MG/2 ML VIAL IV SCH (21:00)
--- NOTE | 2018-09-12 23:17 | P.CONS ---
History of Present Illness - Reason for Consult Consult date: 09/12/18 Pancreatic Cancer Requesting physician: Shaun Alexander - Chief Complaint Weakness, Black Tarry Stool - History of Present Illness Mr. Massey is a pleasant male patient who was recently diagnosed with metastatic Pancreatic cancer. He has unfortunetly only received one treatment of chemotherapy on 08/27/18 secondary to recent hospitalizations. He was discharged on 09/04/18 after hospitalized for fall in bathroom. EGD last admission redemonstrated mass in the duodenum with ulceration concerning for infiltrating pancreatic cancer biopsies were negative for malignancy. Hemoglobin has been ranging between 6.5-9 since time of diagnosis. He has a stable hemoglobin today 8.1, would transfuse to keep greater than 7.5 with recent NSTEMI Ultrasound lower extremities negative for DVT. CT chest negative for PE. Abdominal ultrasound no ascites. He is also very weak and continues to lose weight as he has no appetite despite the addition of appetite stimulatory and PT Review of Systems A 14 point review of systems assessed and completed and all neg except HPI Past Medical History Past Medical History: Diabetes Mellitus Additional Past Medical History / Comment(s): stage 4 pancreatic cancer, last chemo 08/27, mediport place 08/18 History of Any Multi-Drug Resistant Organisms: None Reported Past Surgical History: No Surgical Hx Reported Past Psychological History: No Psychological Hx Reported Smoking Status: Former smoker Past Alcohol Use History: None Reported Past Drug Use History: None Reported - Past Family History Mother Additional Family Medical History / Comment(s): Lung Cancer at age 83 Father Family Medical History: CVA/TIA Medications and Allergies Home Medications Medication Instructions Recorded Confirmed Type Lovastatin [Mevacor] 40 mg PO HS 07/16/18 09/11/18 History ALPRAZolam [Xanax] 0.25 mg PO TID PRN 09/01/18 09/11/18 History Cholestyramine (with Sugar) 4 gm PO ACHS 09/01/18 09/11/18 History [Questran Packet] Cool's Solution 5 ml PO ACHS PRN 09/01/18 09/11/18 History Cyanocobalamin (Vitamin B-12) 1,000 mcg PO DAILY 09/01/18 09/11/18 History [Vitamin B-12] Folic Acid 1 mg PO DAILY 09/01/18 09/11/18 History HYDROcodone/APAP 10-325MG [[place] 1 tab PO QID 09/01/18 09/11/18 History 10-325] Lipase/Protease/Amylase [Mary Ellen Gómez 24,000 units PO TID BETWEEN MEALS 09/01/18 09/11/18 History 24,000 Units Capsule] Lipase/Protease/Amylase [Mary Ellen Gómez 48,000 units PO TID-W/MEALS 09/01/18 09/11/18 History 24,000 Units Capsule] Acyclovir [Zovirax] 400 mg PO TID #30 ml 09/04/18 09/11/18 Rx Aspirin 81 mg PO DAILY #1 chew 09/04/18 09/11/18 Rx Dexamethasone [Decadron] 4 mg PO TID #45 tablet 09/04/18 09/11/18 Rx Famotidine [Pepcid] 20 mg PO BID #60 tablet 09/04/18 09/11/18 Rx Fluconazole [Diflucan] 100 mg PO DAILY #10 tab 09/04/18 09/11/18 Rx Metoprolol Tartrate [Lopressor] 12.5 mg PO BID #60 tab 09/04/18 09/11/18 Rx Nitroglycerin Sl Tabs [Nitrostat] 0.4 mg SUBLINGUAL Q5M PRN #25 tab 09/04/18 09/11/18 Rx Insulin Degludec [Tresiba 10 units SQ HS 09/11/18 09/11/18 History Flextouch U-100] Allergies Allergy/AdvReac Type Severity Reaction Status Date / Time No Known Allergies Allergy Verified 09/11/18 12:14 Physical Exam Vitals: Vital Signs Temp Pulse Pulse Resp BP BP BP 09/12/18 19:00 70 14 110/71 09/12/18 18:50 70 14 110/71 09/12/18 18:40 69 14 110/71 09/12/18 18:30 68 14 110/71 09/12/18 18:20 74 19 110/71 09/12/18 18:10 66 13 110/71 09/12/18 18:00 67 15 106/72 09/12/18 17:50 70 13 106/72 09/12/18 17:40 11 L 106/72 09/12/18 17:30 80 11 L 106/72 09/12/18 17:20 71 20 106/72 09/12/18 17:10 64 13 106/72 09/12/18 17:00 62 14 109/74 09/12/18 16:50 65 14 109/74 09/12/18 16:40 66 13 109/74 09/12/18 16:30 65 14 108/73 09/12/18 16:20 63 13 108/73 09/12/18 16:10 62 14 108/73 09/12/18 16:00 97.8 F 63 13 109/80 09/12/18 15:50 61 14 109/80 09/12/18 15:40 66 12 109/80 09/12/18 15:30 66 12 107/70 09/12/18 15:20 67 17 107/70 09/12/18 15:10 68 13 107/70 09/12/18 15:00 64 14 99/76 09/12/18 14:50 64 12 99/76 09/12/18 14:40 69 12 99/76 09/12/18 14:30 68 12 110/81 09/12/18 14:20 64 14 110/81 09/12/18 14:10 68 18 110/81 09/12/18 14:00 70 14 104/73 09/12/18 13:50 68 13 104/73 09/12/18 13:40 69 13 104/73 09/12/18 13:30 70 15 111/73 09/12/18 13:20 73 13 111/73 09/12/18 13:10 67 13 111/73 09/12/18 13:00 70 13 95/72 09/12/18 12:50 71 13 95/72 09/12/18 12:40 70 14 95/72 09/12/18 12:30 66 15 113/70 09/12/18 12:20 69 13 113/70 09/12/18 12:10 75 12 113/70 09/12/18 12:00 97.6 F 72 15 104/78 09/12/18 11:50 64 14 104/78 09/12/18 11:40 67 14 104/78 09/12/18 11:30 65 14 105/67 09/12/18 11:20 73 12 105/67 09/12/18 11:10 69 13 105/67 09/12/18 11:00 68 16 97/67 09/12/18 10:50 73 18 97/67 09/12/18 10:40 76 12 97/67 09/12/18 10:30 73 12 105/72 09/12/18 10:20 68 13 105/72 09/12/18 10:10 79 15 96/68 09/12/18 10:00 73 14 100/66 09/12/18 09:50 74 13 100/66 09/12/18 09:40 73 13 92/64 09/12/18 09:30 76 13 90/55 09/12/18 09:20 73 13 90/55 09/12/18 09:10 67 14 98/61 09/12/18 09:00 71 16 89/59 09/12/18 08:50 70 13 89/59 09/12/18 08:45 97.7 F 76 89/59 09/12/18 08:40 72 12 91/61 09/12/18 08:30 65 13 94/57 09/12/18 08:20 71 12 94/57 09/12/18 08:10 74 14 104/56 09/12/18 08:00 97.7 F 74 13 91/56 09/12/18 07:50 70 11 L 91/56 09/12/18 07:42 97.7 F 73 15 91/63 09/12/18 07:40 69 11 L 86/55 09/12/18 07:30 85 13 83/58 09/12/18 07:20 90 12 83/58 09/12/18 07:12 97.8 F 71 12 83/58 09/12/18 07:10 80 11 L 85/61 09/12/18 07:02 98.0 F 84 15 85/61 09/12/18 07:00 82 14 87/52 09/12/18 06:50 80 15 87/52 09/12/18 06:40 85 14 87/45 09/12/18 06:30 78 9 L 09/12/18 06:29 83 12 09/12/18 06:07 90/61 09/12/18 05:58 88/58 09/12/18 05:51 84/54 09/12/18 05:41 89/51 83/57 09/12/18 05:36 86/47 04/19/19 05:31 86/48 09/12/18 05:28 77/45 09/12/18 05:15 80/45 09/12/18 04:55 89/61 09/12/18 04:30 88/47 09/12/18 04:20 86/47 09/12/18 04:10 86/51 09/12/18 04:00 97.1 F L 87 18 86/48 09/12/18 00:00 97.9 F 64 18 116/61 Pulse Ox 09/12/18 19:00 100 09/12/18 18:50 100 09/12/18 18:40 100 09/12/18 18:30 100 09/12/18 18:20 100 09/12/18 18:10 100 09/12/18 18:00 88 L 09/12/18 17:50 100 09/12/18 17:40 100 09/12/18 17:30 98 09/12/18 17:20 100 09/12/18 17:10 100 09/12/18 17:00 100 09/12/18 16:50 100 09/12/18 16:40 100 09/12/18 16:30 100 09/12/18 16:20 100 09/12/18 16:10 100 09/12/18 16:00 100 09/12/18 15:50 100 09/12/18 15:40 94 L 09/12/18 15:30 89 L 09/12/18 15:20 93 L 09/12/18 15:10 98 09/12/18 15:00 99 09/12/18 14:50 99 09/12/18 14:40 98 09/12/18 14:30 100 09/12/18 14:20 100 09/12/18 14:10 97 09/12/18 14:00 100 09/12/18 13:50 100 09/12/18 13:40 100 09/12/18 13:30 100 09/12/18 13:20 100 09/12/18 13:10 100 09/12/18 13:00 100 09/12/18 12:50 100 09/12/18 12:40 100 09/12/18 12:30 100 09/12/18 12:20 85 L 09/12/18 12:10 100 09/12/18 12:00 94 L 09/12/18 11:50 100 09/12/18 11:40 100 09/12/18 11:30 100 09/12/18 11:20 100 09/12/18 11:10 94 L 09/12/18 11:00 92 L 09/12/18 10:50 97 09/12/18 10:40 100 09/12/18 10:30 94 L 09/12/18 10:20 98 09/12/18 10:10 100 09/12/18 10:00 100 09/12/18 09:50 84 L 09/12/18 09:40 100 09/12/18 09:30 93 L 09/12/18 09:20 93 L 09/12/18 09:10 100 09/12/18 09:00 92 L 09/12/18 08:50 100 09/12/18 08:45 09/12/18 08:40 100 09/12/18 08:30 100 09/12/18 08:20 100 09/12/18 08:10 100 09/12/18 08:00 100 09/12/18 07:50 99 09/12/18 07:42 09/12/18 07:40 98 09/12/18 07:30 100 09/12/18 07:20 80 L 09/12/18 07:12 100 09/12/18 07:10 99 09/12/18 07:02 100 09/12/18 07:00 100 09/12/18 06:50 100 09/12/18 06:40 100 09/12/18 06:30 09/12/18 06:29 09/12/18 06:07 09/12/18 05:58 09/12/18 05:51 09/12/18 05:41 09/12/18 05:36 09/12/18 05:31 09/12/18 05:28 09/12/18 05:15 09/12/18 04:55 09/12/18 04:30 09/12/18 04:20 09/12/18 04:10 09/12/18 04:00 100 09/12/18 00:00 100 Intake and Output 09/12/18 09/12/18 09/12/18 06:59 14:59 22:59 Intake Total 0 1710 1100 Output Total 650 340 320 Balance -650 1370 780 Intake: Intake, IV Titration 1400 1100 Amount Piperacillin-Tazobactam 3 100 .375 gm In Sodium Chloride 0.9% 100 ml @ 25 mls/hr IVPB ONCE [facility] Rx# :[id number] Piperacillin-Tazobactam 3 100 .375 gm In Sodium Chloride 0.9% 100 ml @ 25 mls/hr IVPB Q8HR [facility] Rx# :[id number] Sodium Chloride 0.9% 1, 1050 750 000 ml @ 150 mls/hr IV . Q6H40M [facility] Rx#:[id number] Vancomycin 1,500 mg In 250 250 Sodium Chloride 0.9% 250 ml @ 125 mls/hr IVPB Q8HR [facility] Rx#:[id number] Blood Product 0 310 Rc Pheresis 2 As3 Unit 0 310 [id number] Output: Urine 650 340 320 Other: Voiding Method Indwelling Catheter Indwelling Catheter Indwelling Catheter # Bowel Movements 2 2 3 Weight 89 kg Gen: NAD, pale Head: NC Neck: Supple Thrush, erythema Lungs: Diminished Bibasilar, no increased effort Abdomen: Tender, mild distention Heart: Tachy Reg Ext BLE edema Neuro: NO sensory or motor deficits Results CBC & Chem 7: 09/12/18 09:16 09/12/18 09:16 Labs: Abnormal Lab Results - Last 24 Hours (Table) 09/11/18 09/11/18 09/11/18 Range/Units 12:15 20:39 21:56 WBC (3.8-10.6) k/uL RBC (4.30-5.90) m/uL Hgb (13.0-17.5) gm/dL Hct (39.0-53.0) % MCHC (31.0-37.0) g/dL RDW (11.5-15.5) % Plt Count (150-450) k/uL Neutrophils # (1.3-7.7) k/uL Neutrophils # (Manual) (1.3-7.7) k/uL Lymphocytes # (1.0-4.8) k/uL Lymphocytes # (Manual) (1.0-4.8) k/uL Metamyelocytes # (Man) (0) k/uL Sodium (137-145) mmol/L BUN (9-20) mg/dL Creatinine (0.66-1.25) mg/dL Glucose (74-99) mg/dL POC Glucose (mg/dL) 291 H (75-99) mg/dL Plasma Lactic Acid Tan 3.3 H* (0.7-2.0) mmol/L Calcium (8.4-10.2) mg/dL Ur Specific [place] (1.001-1.035) Urine Protein (Negative) Urine Glucose (UA) (Negative) Ur Leukocyte Esterase (Negative) Urine WBC (0-5) /hpf Urine Mucus (None) /hpf Crossmatch See Detail 09/12/18 09/12/18 09/12/18 Range/Units 02:18 02:18 05:54 WBC 20.3 H (3.8-10.6) k/uL RBC 2.97 L (4.30-5.90) m/uL Hgb 7.5 L (13.0-17.5) gm/dL Hct 25.5 L (39.0-53.0) % MCHC 29.4 L (31.0-37.0) g/dL RDW 22.5 H (11.5-15.5) % Plt Count 591 H (150-450) k/uL Neutrophils # (1.3-7.7) k/uL Neutrophils # (Manual) 18.20 H (1.3-7.7) k/uL Lymphocytes # (1.0-4.8) k/uL Lymphocytes # (Manual) 0.81 L (1.0-4.8) k/uL Metamyelocytes # (Man) 0.20 H (0) k/uL Sodium (137-145) mmol/L BUN (9-20) mg/dL Creatinine (0.66-1.25) mg/dL Glucose (74-99) mg/dL POC Glucose (mg/dL) 205 H (75-99) mg/dL Plasma Lactic Acid Tan 3.9 H* (0.7-2.0) mmol/L Calcium (8.4-10.2) mg/dL Ur Specific [place] (1.001-1.035) Urine Protein (Negative) Urine Glucose (UA) (Negative) Ur Leukocyte Esterase (Negative) Urine WBC (0-5) /hpf Urine Mucus (None) /hpf Crossmatch 09/12/18 09/12/18 09/12/18 Range/Units 06:34 07:16 09:16 WBC 21.4 H (3.8-10.6) k/uL RBC 3.09 L (4.30-5.90) m/uL Hgb 7.9 L (13.0-17.5) gm/dL Hct 26.1 L (39.0-53.0) % MCHC 30.2 L (31.0-37.0) g/dL RDW 21.7 H (11.5-15.5) % Plt Count 479 H (150-450) k/uL Neutrophils # 19.7 H (1.3-7.7) k/uL Neutrophils # (Manual) (1.3-7.7) k/uL Lymphocytes # 0.4 L (1.0-4.8) k/uL Lymphocytes # (Manual) (1.0-4.8) k/uL Metamyelocytes # (Man) (0) k/uL Sodium (137-145) mmol/L BUN (9-20) mg/dL Creatinine (0.66-1.25) mg/dL Glucose (74-99) mg/dL POC Glucose (mg/dL) 209 H 224 H (75-99) mg/dL Plasma Lactic Acid Tan (0.7-2.0) mmol/L Calcium (8.4-10.2) mg/dL Ur Specific [place] (1.001-1.035) Urine Protein (Negative) Urine Glucose (UA) (Negative) Ur Leukocyte Esterase (Negative) Urine WBC (0-5) /hpf Urine Mucus (None) /hpf Crossmatch 09/12/18 09/12/18 09/12/18 Range/Units 09:16 10:45 11:48 WBC (3.8-10.6) k/uL RBC (4.30-5.90) m/uL Hgb (13.0-17.5) gm/dL Hct (39.0-53.0) % MCHC (31.0-37.0) g/dL RDW (11.5-15.5) % Plt Count (150-450) k/uL Neutrophils # (1.3-7.7) k/uL Neutrophils # (Manual) (1.3-7.7) k/uL Lymphocytes # (1.0-4.8) k/uL Lymphocytes # (Manual) (1.0-4.8) k/uL Metamyelocytes # (Man) (0) k/uL Sodium 132 L (137-145) mmol/L BUN 23 H (9-20) mg/dL Creatinine 0.43 L (0.66-1.25) mg/dL Glucose 196 H (74-99) mg/dL POC Glucose (mg/dL) 216 H (75-99) mg/dL Plasma Lactic Acid Tan (0.7-2.0) mmol/L Calcium 8.0 L (8.4-10.2) mg/dL Ur Specific [place] >1.050 H (1.001-1.035) Urine Protein 1+ H (Negative) Urine Glucose (UA) 1+ H (Negative) Ur Leukocyte Esterase Trace H (Negative) Urine WBC 7 H (0-5) /hpf Urine Mucus Rare H (None) /hpf Crossmatch 09/12/18 09/12/18 Range/Units 13:21 20:18 WBC (3.8-10.6) k/uL RBC (4.30-5.90) m/uL Hgb (13.0-17.5) gm/dL Hct (39.0-53.0) % MCHC (31.0-37.0) g/dL RDW (11.5-15.5) % Plt Count (150-450) k/uL Neutrophils # (1.3-7.7) k/uL Neutrophils # (Manual) (1.3-7.7) k/uL Lymphocytes # (1.0-4.8) k/uL Lymphocytes # (Manual) (1.0-4.8) k/uL Metamyelocytes # (Man) (0) k/uL Sodium (137-145) mmol/L BUN (9-20) mg/dL Creatinine (0.66-1.25) mg/dL Glucose (74-99) mg/dL POC Glucose (mg/dL) 200 H 172 H (75-99) mg/dL Plasma Lactic Acid Tan (0.7-2.0) mmol/L Calcium (8.4-10.2) mg/dL Ur Specific [place] (1.001-1.035) Urine Protein (Negative) Urine Glucose (UA) (Negative) Ur Leukocyte Esterase (Negative) Urine WBC (0-5) /hpf Urine Mucus (None) /hpf Crossmatch Microbiology - Last 24 Hours (Table) 09/11/18 14:54 Urine Culture - Final Urine,Catheterized 09/11/18 12:15 Blood Culture - Preliminary Blood No Growth after 24 hours Assessment and Plan Plan: Assessment and Recommendations: 1. Black Tarry Stools 2. Metastatic Pancreatic Cancer: - Status Post one treatment with Gemzar and Abraxane 3. Chronic Illness Myopathy and debility: - PT/OT Evaluation and treatment please, benefit from SHERRY versus IPR vs home PT/OT after discharge 4. Microcytic Anemia: Malignancy - Status Post EGD - MOnitor Daily CBC 5. NSTEMI: Per primary and Cardiology COntinue supportive care Restart Chemo as outpatient MOnitor for active blood loss Transfusion support woulds transuse with hemoglobin less than 7.5 Status Post EGD and Discussed with GI Consider Epogen therapy as outpatient Physician Attest: I have completed the full history and Physcial and agree with above dictation by Janel Dean NP Dictated as a scribe
--- NOTE | 2018-09-12 23:47 | PN ---
PROGRESS NOTE DATE OF SERVICE: 09/12/2018. PRESENTING COMPLAINT: Tired, short of breath. INTERVAL HISTORY: This is a patient with metastatic pancreatic cancer with mass protruding into the duodenum which was ulcerated with recurrent bleeding. Patient has continued to feel weak, tired, run down. Eating small amounts, had some dark stools, rather tired, rundown. Family at the bedside. REVIEW OF SYSTEMS: Done for constitutional, cardiovascular, GI, pulmonary and relevant findings as above. CURRENT MEDICATIONS: Reviewed and include IV Diflucan, vancomycin and IV Zosyn. EXAMINATION: VITAL SIGNS: Afebrile, pulse 64, respirations 13, blood pressure 106/72, pulse ox 100 percent. GENERAL APPEARANCE: Lying in bed, awake. EYES: Pupils equal. Conjunctivae pale. NECK: JVD unable to assess. Mass not palpable. RESPIRATORY: Effort increased. LUNGS: Decreased breath sounds. CARDIOVASCULAR: 1st and 2nd sounds normal. Edema present. ABDOMEN: Soft, nontender. Liver and spleen not palpable. PSYCHIATRY: Awake, answering questions. INVESTIGATIONS: White count 21.9, hemoglobin 7.9, platelets 479. Potassium 4.7, BUN 23, creatinine 0.43. Accu-Cheks are noted. Chest ultrasound, no significant pleural effusion. Abdominal ultrasound, no ascites. ASSESSMENT: 1. Weakness, tired, short of breath, probably from severe medical asthenia from underlying malignancy. There is no significant pleural effusion or ascites. 2. Recent acute non-Q-wave myocardial infarction. 3. Metastatic pancreatic cancer with large necrotic mass in the pancreatic head with extension to the duodenum which has been intermittently bleeding. 4. Anxiety not otherwise specified. 5. Microcytic anemia, combination of iron deficiency and acute blood loss anemia. 6. Moderate protein-calorie malnutrition from decreased oral intake. 7. Advanced medical debility. PLAN: Given that the patient's extensive and intermittently bleeding, there is not really much you can do for that. The patient had been to [facility] prior and this could maybe very well lead to a terminal event. Plan and prognosis remains very guarded. Options are rather limited. Continue current medications. Supportive . If things were to go down rapidly, I would even then consider hospice. Otherwise prognosis is rather guarded. MMODL / IJN: [id number] /
[2018-09-13] MEDS: PIPERACILLIN-TAZOBACTAM 3.375 GM in SODIUM CHLORIDE 0.9% 100 ML IVPB SCH ×4 (00:38→23:51)
[2018-09-13] MEDS: VANCOMYCIN 1,500 MG in SODIUM CHLORIDE 0.9% 250 ML IVPB SCH ×4 (00:38→23:54)
[2018-09-13] MEDS: SODIUM CHLORIDE 0.9% 1,000 ML IV SCH ×4 (00:39→21:22)
[2018-09-13 05:05] LABS: Anisocytosis Moderate; HCT 24.4 % (39.0-53.0); HGB 7.4 gm/dL (13.0-17.5); Hypochromasia Marked; MCH 25.7 pg (25.0-35.0); MCHC 30.4 g/dL (31.0-37.0); MCV 84.7 fL (80.0-100.0); Mean Platelet Volume 7.2; Microcytosis Slight; Platelet Count 433 k/uL (150-450); Poikilocytosis Slight; RBC 2.88 m/uL (4.30-5.90); RDW 21.4 % (11.5-15.5); WBC 20.6 k/uL (3.8-10.6)
[2018-09-13 05:19] LABS: ALT 27 U/L (21-72); AST 15 U/L (17-59); Albumin 1.9 g/dL (3.5-5.0); Alkaline Phosphatase 115 U/L (38-126); Anion Gap 5 mmol/L; Blood Urea Nitrogen 16 mg/dL (9-20); Calcium 7.5 mg/dL (8.4-10.2); Carbon Dioxide 19 mmol/L (22-30); Chloride 105 mmol/L (98-107); Glucose 159 mg/dL (74-99); Potassium 4.3 mmol/L (3.5-5.1); Sodium 129 mmol/L (137-145); Total Bilirubin 0.4 mg/dL (0.2-1.3); Total Protein 3.8 g/dL (6.3-8.2)
[2018-09-13 06:06] LABS: Band Neutrophils % 10 %; Eosinophils # (M) 0.21 k/uL (0-0.7); Lymphocytes # (M) 0.41 k/uL (1.0-4.8); Metamyelocytes # (M) 0.21 k/uL (0); Metamyelocytes % 1 %; Monocytes # (M) 1.24 k/uL (0-1.0); Nucleated Red Blood Cells 0 /100 WBC (0-0)
[2018-09-13 06:07] LABS: Neutrophils % (M) 81 %; Total Cells Counted 200
[2018-09-13 06:08] LABS: Anisocytosis (M) Present; Poikilocytosis (M) Present
[2018-09-13] MEDS ORDERED: VANCOMYCIN TROUGH DUE 1 EACH MISC MISCELLANE ONE (07:00)
[2018-09-13 07:13] LABS: Glucose,Whole Blood 173 mg/dL (75-99)
[2018-09-13] MEDS: CHOLESTYRAMINE (WITH SUGAR) 4 GM PACKET PO SCH ×4 (07:13→21:21)
[2018-09-13] MEDS: LIPASE 5,000/PROTEASE 17,000/AMYLASE 24,000 PO SCH ×6 (07:16→17:23)
[2018-09-13] MEDS: INSULIN ASPART (NovoLOG) 100 UNIT/ML VIAL SQ SCH ×4 (07:16→21:21)
--- NOTE | 2018-09-13 07:26 | P.CONS ---
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 He has completed 1 cycle of chemotherapy on 08/27 with Gemzar/Abraxane. He has been hospitalized twice in the following weeks. During his last hospital stay he was reporting dark, tarry stools and EGD showed an ulcerative mass involving the 3rd part of the duodenum. He reported improvement in his stools after discharge, but notes this seemed to worsen again prior to his current admission. The patient was admitted on 09/11 with fatigue, increased dyspnea and dark- stools. His appetite has been quite poor and he has been reporting that food isn't tasting good. CT-PE was unremarkable. He has no significant abdominal pain. He feels his stools are again starting to normalize. His HGB has been around 7-8 and has been stable. Review of Systems Constitutional: Denies fever Eyes: denies blurred vision Ears, nose, mouth and throat: Denies headache Cardiovascular: Reports dyspnea on exertion, Denies chest pain Respiratory: Denies cough, Denies pain on inspiration Gastrointestinal: Reports melena, Denies abdominal pain Musculoskeletal: Reports low back pain (sacrum due to sitting) Neurological: Reports change in smell/taste, Denies confusion Psychiatric: Denies anxiety Endocrine: Reports fatigue Past Medical History Past Medical History: Diabetes Mellitus Additional Past Medical History / Comment(s): stage 4 pancreatic cancer, last chemo 08/27, [facility] 08/18 History of Any Multi-Drug Resistant Organisms: None Reported Past Surgical History: No Surgical Hx Reported Past Psychological History: No Psychological Hx Reported Smoking Status: Former smoker Past Alcohol Use History: None Reported Past Drug Use History: None Reported - Past Family History Mother Additional Family Medical History / Comment(s): Lung Cancer at age 83 Father Family Medical History: CVA/TIA Medications and Allergies Home Medications Medication Instructions Recorded Confirmed Type Lovastatin [Mevacor] 40 mg PO HS 07/16/18 09/11/18 History ALPRAZolam [Xanax] 0.25 mg PO TID PRN 09/01/18 09/11/18 History Cholestyramine (with Sugar) 4 gm PO ACHS 09/01/18 09/11/18 History [Questran Packet] Cool's Solution 5 ml PO ACHS PRN 09/01/18 09/11/18 History Cyanocobalamin (Vitamin B-12) 1,000 mcg PO DAILY 09/01/18 09/11/18 History [Vitamin B-12] Folic Acid 1 mg PO DAILY 09/01/18 09/11/18 History HYDROcodone/APAP 10-325MG [Freedom 1 tab PO QID 09/01/18 09/11/18 History 10-325] Lipase/Protease/Amylase [Mary Ellen Gómez 24,000 units PO TID BETWEEN MEALS 09/01/18 09/11/18 History 24,000 Units Capsule] Lipase/Protease/Amylase [Mary Ellen Gómez 48,000 units PO TID-W/MEALS 09/01/18 09/11/18 History 24,000 Units Capsule] Acyclovir [Zovirax] 400 mg PO TID #30 ml 09/04/18 09/11/18 Rx Aspirin 81 mg PO DAILY #1 chew 09/04/18 09/11/18 Rx Dexamethasone [Decadron] 4 mg PO TID #45 tablet 09/04/18 09/11/18 Rx Famotidine [Pepcid] 20 mg PO BID #60 tablet 09/04/18 09/11/18 Rx Fluconazole [Diflucan] 100 mg PO DAILY #10 tab 09/04/18 09/11/18 Rx Metoprolol Tartrate [Lopressor] 12.5 mg PO BID #60 tab 09/04/18 09/11/18 Rx Nitroglycerin Sl Tabs [Nitrostat] 0.4 mg SUBLINGUAL Q5M PRN #25 tab 09/04/18 09/11/18 Rx Insulin Degludec [Tresiba 10 units SQ HS 09/11/18 09/11/18 History Flextouch U-100] Allergies Allergy/AdvReac Type Severity Reaction Status Date / Time No Known Allergies Allergy Verified 09/11/18 12:14 Physical Exam Vitals: Vital Signs Temp Pulse Resp BP Pulse Ox 09/13/18 07:00 85 17 90/58 98 09/13/18 06:00 63 13 90/58 98 09/13/18 05:00 60 12 91/57 98 09/13/18 04:00 97.5 F L 64 13 89/54 97 09/13/18 03:00 61 11 L 97 09/13/18 02:00 72 18 99 09/13/18 01:00 63 14 99 09/13/18 00:00 97.5 F L 63 13 118/78 100 09/12/18 23:00 69 22 100 09/12/18 22:00 68 15 107/67 98 09/12/18 21:00 63 14 105/77 99 09/12/18 20:00 97.7 F 66 16 108/85 99 09/12/18 19:00 70 14 110/71 100 09/12/18 18:50 70 14 110/71 100 09/12/18 18:40 69 14 110/71 100 09/12/18 18:30 68 14 110/71 100 09/12/18 18:20 74 19 110/71 100 09/12/18 18:10 66 13 110/71 100 09/12/18 18:00 67 15 106/72 88 L 09/12/18 17:50 70 13 106/72 100 09/12/18 17:40 11 L 106/72 100 09/12/18 17:30 80 11 L 106/72 98 09/12/18 17:20 71 20 106/72 100 09/12/18 17:10 64 13 106/72 100 09/12/18 17:00 62 14 109/74 100 09/12/18 16:50 65 14 109/74 100 09/12/18 16:40 66 13 109/74 100 09/12/18 16:30 65 14 108/73 100 09/12/18 16:20 63 13 108/73 100 09/12/18 16:10 62 14 108/73 100 09/12/18 16:00 97.8 F 63 13 109/80 100 09/12/18 15:50 61 14 109/80 100 09/12/18 15:40 66 12 109/80 94 L 09/12/18 15:30 66 12 107/70 89 L 09/12/18 15:20 67 17 107/70 93 L 09/12/18 15:10 68 13 107/70 98 09/12/18 15:00 64 14 99/76 99 09/12/18 14:50 64 12 99/76 99 09/12/18 14:40 69 12 99/76 98 09/12/18 14:30 68 12 110/81 100 09/12/18 14:20 64 14 110/81 100 09/12/18 14:10 68 18 110/81 97 09/12/18 14:00 70 14 104/73 100 09/12/18 13:50 68 13 104/73 100 09/12/18 13:40 69 13 104/73 100 09/12/18 13:30 70 15 111/73 100 09/12/18 13:20 73 13 111/73 100 09/12/18 13:10 67 13 111/73 100 09/12/18 13:00 70 13 95/72 100 09/12/18 12:50 71 13 95/72 100 09/12/18 12:40 70 14 95/72 100 09/12/18 12:30 66 15 113/70 100 09/12/18 12:20 69 13 113/70 85 L 09/12/18 12:10 75 12 113/70 100 09/12/18 12:00 97.6 F 72 15 104/78 94 L 09/12/18 11:50 64 14 104/78 100 09/12/18 11:40 67 14 104/78 100 09/12/18 11:30 65 14 105/67 100 09/12/18 11:20 73 12 105/67 100 09/12/18 11:10 69 13 105/67 94 L 09/12/18 11:00 68 16 97/67 92 L 09/12/18 10:50 73 18 97/67 97 09/12/18 10:40 76 12 97/67 100 09/12/18 10:30 73 12 105/72 94 L 09/12/18 10:20 68 13 105/72 98 09/12/18 10:10 79 15 96/68 100 09/12/18 10:00 73 14 100/66 100 09/12/18 09:50 74 13 100/66 84 L 09/12/18 09:40 73 13 92/64 100 09/12/18 09:30 76 13 90/55 93 L 09/12/18 09:20 73 13 90/55 93 L 09/12/18 09:10 67 14 98/61 100 09/12/18 09:00 71 16 89/59 92 L 09/12/18 08:50 70 13 89/59 100 09/12/18 08:45 97.7 F 76 89/59 09/12/18 08:40 72 12 91/61 100 09/12/18 08:30 65 13 94/57 100 09/12/18 08:20 71 12 94/57 100 09/12/18 08:10 74 14 104/56 100 09/12/18 08:00 97.7 F 74 13 91/56 100 09/12/18 07:50 70 11 L 91/56 99 09/12/18 07:42 97.7 F 73 15 91/63 09/12/18 07:40 69 11 L 86/55 98 09/12/18 07:30 85 13 83/58 100 09/12/18 07:20 90 12 83/58 80 L Intake and Output 09/12/18 09/13/18 09/13/18 22:59 06:59 14:59 Intake Total 1550 1550 150 Output Total 445 500 100 Balance 1105 1050 50 Intake: IV 450 1550 150 Piperacillin-Tazobactam 3 100 .375 gm In Sodium Chloride 0.9% 100 ml @ 25 mls/hr IVPB Q8HR [facility] Rx# :[id number] Sodium Chloride 0.9% 1, 450 1200 150 000 ml @ 150 mls/hr IV . Q6H40M [facility] Rx#:[id number] Vancomycin 1,500 mg In 250 Sodium Chloride 0.9% 250 ml @ 125 mls/hr IVPB Q8HR [facility] Rx#:[id number] Intake, IV Titration 1100 Amount Piperacillin-Tazobactam 3 100 .375 gm In Sodium Chloride 0.9% 100 ml @ 25 mls/hr IVPB ONCE STA Rx# :[id number] Sodium Chloride 0.9% 1, 750 000 ml @ 150 mls/hr IV . Q6H40M [facility] Rx#:[id number] Vancomycin 1,500 mg In 250 Sodium Chloride 0.9% 250 ml @ 125 mls/hr IVPB Q8HR [facility] Rx#:[id number] Output: Urine 445 500 100 Other: Voiding Method Indwelling Catheter Indwelling Catheter # Bowel Movements 3 1 Weight 92.7 kg - Constitutional General appearance: average body habitus - EENT Eyes: EOMI, PERRLA ENT: hearing grossly normal - Neck Neck: no lymphadenopathy - Respiratory Respiratory: bilateral: CTA - Cardiovascular Rhythm: regular - Gastrointestinal General gastrointestinal: no distended, no tenderness - Integumentary Integumentary: pale - Neurologic Neurologic: CNII-XII intact - Psychiatric Psychiatric: A&O x's 3 Results CBC & Chem 7: 09/13/18 04:32 09/13/18 04:32 Labs: Abnormal Lab Results - Last 24 Hours (Table) 09/11/18 09/12/18 09/12/18 Range/Units 12:15 07:16 09:16 WBC 21.4 H (3.8-10.6) k/uL RBC 3.09 L (4.30-5.90) m/uL Hgb 7.9 L (13.0-17.5) gm/dL Hct 26.1 L (39.0-53.0) % MCHC 30.2 L (31.0-37.0) g/dL RDW 21.7 H (11.5-15.5) % Plt Count 479 H (150-450) k/uL Neutrophils # 19.7 H (1.3-7.7) k/uL Neutrophils # (Manual) (1.3-7.7) k/uL Lymphocytes # 0.4 L (1.0-4.8) k/uL Lymphocytes # (Manual) (1.0-4.8) k/uL Monocytes # (Manual) (0-1.0) k/uL Metamyelocytes # (Man) (0) k/uL Sodium (137-145) mmol/L Carbon Dioxide (22-30) mmol/L BUN (9-20) mg/dL Creatinine (0.66-1.25) mg/dL Glucose (74-99) mg/dL POC Glucose (mg/dL) 224 H (75-99) mg/dL Calcium (8.4-10.2) mg/dL AST (17-59) U/L Total Protein (6.3-8.2) g/dL Albumin (3.5-5.0) g/dL Ur Specific [place] (1.001-1.035) Urine Protein (Negative) Urine Glucose (UA) (Negative) Ur Leukocyte Esterase (Negative) Urine WBC (0-5) /hpf Urine Mucus (None) /hpf Crossmatch See Detail 09/12/18 09/12/18 09/12/18 Range/Units 09:16 10:45 11:48 WBC (3.8-10.6) k/uL RBC (4.30-5.90) m/uL Hgb (13.0-17.5) gm/dL Hct (39.0-53.0) % MCHC (31.0-37.0) g/dL RDW (11.5-15.5) % Plt Count (150-450) k/uL Neutrophils # (1.3-7.7) k/uL Neutrophils # (Manual) (1.3-7.7) k/uL Lymphocytes # (1.0-4.8) k/uL Lymphocytes # (Manual) (1.0-4.8) k/uL Monocytes # (Manual) (0-1.0) k/uL Metamyelocytes # (Man) (0) k/uL Sodium 132 L (137-145) mmol/L Carbon Dioxide (22-30) mmol/L BUN 23 H (9-20) mg/dL Creatinine 0.43 L (0.66-1.25) mg/dL Glucose 196 H (74-99) mg/dL POC Glucose (mg/dL) 216 H (75-99) mg/dL Calcium 8.0 L (8.4-10.2) mg/dL AST (17-59) U/L Total Protein (6.3-8.2) g/dL Albumin (3.5-5.0) g/dL Ur Specific [place] >1.050 H (1.001-1.035) Urine Protein 1+ H (Negative) Urine Glucose (UA) 1+ H (Negative) Ur Leukocyte Esterase Trace H (Negative) Urine WBC 7 H (0-5) /hpf Urine Mucus Rare H (None) /hpf Crossmatch 09/12/18 09/12/18 09/13/18 Range/Units 13:21 20:18 04:32 WBC (3.8-10.6) k/uL RBC (4.30-5.90) m/uL Hgb (13.0-17.5) gm/dL Hct (39.0-53.0) % MCHC (31.0-37.0) g/dL RDW (11.5-15.5) % Plt Count (150-450) k/uL Neutrophils # (1.3-7.7) k/uL Neutrophils # (Manual) (1.3-7.7) k/uL Lymphocytes # (1.0-4.8) k/uL Lymphocytes # (Manual) (1.0-4.8) k/uL Monocytes # (Manual) (0-1.0) k/uL Metamyelocytes # (Man) (0) k/uL Sodium 129 L (137-145) mmol/L Carbon Dioxide 19 L (22-30) mmol/L BUN (9-20) mg/dL Creatinine 0.36 L (0.66-1.25) mg/dL Glucose 159 H (74-99) mg/dL POC Glucose (mg/dL) 200 H 172 H (75-99) mg/dL Calcium 7.5 L (8.4-10.2) mg/dL AST 15 L (17-59) U/L Total Protein 3.8 L (6.3-8.2) g/dL Albumin 1.9 L (3.5-5.0) g/dL Ur Specific [place] (1.001-1.035) Urine Protein (Negative) Urine Glucose (UA) (Negative) Ur Leukocyte Esterase (Negative) Urine WBC (0-5) /hpf Urine Mucus (None) /hpf Crossmatch 09/13/18 Range/Units 04:32 WBC 20.6 H (3.8-10.6) k/uL RBC 2.88 L (4.30-5.90) m/uL Hgb 7.4 L (13.0-17.5) gm/dL Hct 24.4 L (39.0-53.0) % MCHC 30.4 L (31.0-37.0) g/dL RDW 21.4 H (11.5-15.5) % Plt Count (150-450) k/uL Neutrophils # (1.3-7.7) k/uL Neutrophils # (Manual) 18.70 H (1.3-7.7) k/uL Lymphocytes # (1.0-4.8) k/uL Lymphocytes # (Manual) 0.41 L (1.0-4.8) k/uL Monocytes # (Manual) 1.24 H (0-1.0) k/uL Metamyelocytes # (Man) 0.21 H (0) k/uL Sodium (137-145) mmol/L Carbon Dioxide (22-30) mmol/L BUN (9-20) mg/dL Creatinine (0.66-1.25) mg/dL Glucose (74-99) mg/dL POC Glucose (mg/dL) (75-99) mg/dL Calcium (8.4-10.2) mg/dL AST (17-59) U/L Total Protein (6.3-8.2) g/dL Albumin (3.5-5.0) g/dL Ur Specific [place] (1.001-1.035) Urine Protein (Negative) Urine Glucose (UA) (Negative) Ur Leukocyte Esterase (Negative) Urine WBC (0-5) /hpf Urine Mucus (None) /hpf Crossmatch Microbiology - Last 24 Hours (Table) 09/11/18 14:54 Urine Culture - Final Urine,Catheterized 09/11/18 12:15 Blood Culture - Preliminary Blood No Growth after [address] scan - abdomen: report reviewed, image reviewed CT scan - chest: report reviewed CT scan - pelvis: report reviewed, image reviewed US - abdomen: report reviewed Assessment and Plan Plan: The patient is a 68 year old male recently diagnosed with metastatic adenocarcinoma of the pancreas with multiple large liver metastases and a large pancreas head mass with invasion of the duodenum. He has completed 1 cycle of chemotherapy on 08/27 with Gemzar/Abraxane. He has been hospitalized twice in the following weeks. During his last hospital stay he was reporting dark, tarry stools and EGD showed an ulcerative mass involving the 3rd part of the duodenum. He reported improvement in his stools after discharge, but notes this seemed to worsen again prior to his current admission. 1. Melena: Most likely cause is erosion into the duodenum of the pancreatic head mass. The patient feels that since admission his stools have been improving. His Hgb has been stable. There appears to be no urgent need for radiotherapy. I explained to the patient that a palliative course of radiotherapy could be initiated if this worsens as it may help to decrease the bleeding caused by the erosive mass. We will continue to follow during this hospitalization. 2. Metastatic pancreatic cancer: Patient has had 1 cycle of [place]/Abraxane. Hoping to resume shortly as an outpatient. Time with Patient: Greater than 30
--- NOTE | 2018-09-13 08:47 | ECHOF ---
Referral Reason:assess left ventricular function MEASUREMENTS -------- HEIGHT: 167.6 cm WEIGHT: 88.9 kg BP: 97/7 RVIDd: 3.9 cm (< 3.3) IVSd: 1.2 cm (0.6 - 1.1) LVIDd: 5.6 cm (3.9 - 5.3) LVPWd: 1.3 cm (0.6 - 1.1) IVSs: 1.7 cm LVIDs: 3.0 cm LVPWs: 1.6 cm LA Diam: 3.5 cm (2.7 - 3.8) LAESV Index (A-L): 31.34 ml/m Ao Diam: 3.0 cm (2.0 - 3.7) AV Cusp: 1.7 cm (1.5 - 2.6) MV EXCURSION: 16.594 mm (> 18.000) MV EF SLOPE: 84 mm/s (70 - 150) EPSS: 2.7 cm MV E Jose Francisco: 0.86 m/s MV DecT: 277 ms MV A Jose Francisco: 0.74 m/s MV E/A Ratio: 1.16 RAP: 5.00 mmHg RVSP: 27.81 mmHg FINDINGS -------- Sinus rhythm. This was a technically adequate study. The left ventricular size is normal. There is mild concentric left ventricular hypertrophy. Overa ll left ventricular systolic function is normal with, an EF between 55 - 60 %. The right ventricle is mild to moderately enlarged. LA is midly dilated 29-33ml/m2. The right atrium is normal in size. Lipomatous Hypertrophy of the atrial septum is present There is mild aortic valve sclerosis. The mitral valve leaflets are mildly thickened. Mild mitral annular calcification present. There is trace mitral regurgitation. Mild tricuspid regurgitation present. Right ventricular systolic pressure is normal at < 35 mmHg. There is no pulmonic regurgitation present. The aortic root size is normal. IVC Not well visulized. There is no pericardial effusion. CONCLUSIONS -------- 1. Sinus rhythm. 2. This was a technically adequate study. 3. The left ventricular size is normal. 4. There is mild concentric left ventricular hypertrophy. 5. Overall left ventricular systolic function is normal with, an EF between 55 - 60 %. 6. The right ventricle is mild to moderately enlarged. 7. LA is midly dilated 29-33ml/m2. 8. The right atrium is normal in size. 9. Lipomatous Hypertrophy of the atrial septum is present 10. There is mild aortic valve sclerosis. 11. The mitral valve leaflets are mildly thickened. 12. Mild mitral annular calcification present. 13. There is trace mitral regurgitation. 14. Mild tricuspid regurgitation present. 15. Right ventricular systolic pressure is normal at < 35 mmHg. 16. There is no pulmonic regurgitation present. 17. The aortic root size is normal. 18. IVC Not well visulized. 19. There is no pericardial effusion. MANAGER ORACLE: Georgette Mcdermott RDCS
[2018-09-13] MEDS: HYDROcodone/APAP 10-325MG 1 EACH TAB PO SCH ×4 (09:15→21:20)
[2018-09-13] MEDS: PANTOPRAZOLE 40 MG TABLET PO SCH (09:17)
[2018-09-13] MEDS: ASPIRIN 81 MG PO SCH (09:17)
[2018-09-13] MEDS: DEXAMETHASONE 4 MG TAB PO SCH ×3 (09:17→22:27)
[2018-09-13] MEDS: METOPROLOL TARTRATE 12.5 MG TAB PO SCH ×2 (09:17→21:21)
[2018-09-13] MEDS: CYANOCOBALAMIN 500 MCG TAB PO SCH (09:17)
[2018-09-13] MEDS: FLUCONAZOLE IN NACL,ISO-OSM 100 MG in SALINE 1 50ML.BAG IVPB SCH (09:18)
[2018-09-13] MEDS: ACYCLOVIR 400 MG/10 ML CUP PO SCH ×3 (09:18→22:27)
[2018-09-13 12:11] LABS: Glucose,Whole Blood 127 mg/dL (75-99)
--- NOTE | 2018-09-13 12:37 | PN ---
PROGRESS NOTE Roberto Lackey, a 68-year-old gentleman who is admitted to hospital with metastatic pancreatic cancer and Cardiology had been consulted because of hypotension. The patient had an echocardiogram on this admission that revealed normal LV systolic function. On exam today, he is comfortable at rest. Afebrile. Blood pressure is 91/60. Respiratory rate is 18. Chest exam reveals diminished air entry at the bases. Heart exam reveals first and second heart sounds. No gallop. Examination of extremities reveals bilateral pitting edema. Labs showed that the hemoglobin is 7.4, platelet count is 433, potassium is 4.3 creatinine is 0.36. ASSESSMENT: 1. Hypotension. 2. Metastatic pancreatic cancer. PLAN: From cardiac standpoint, he is to feeling better. His troponin was not elevated on this admission. I reviewed echo results. No further cardiac intervention at this time. We are going to follow him on an as-needed basis. Call us back for any problems. MMODL / IJN: [id number] /
[2018-09-13] MEDS: FOLIC ACID 1 MG TAB PO SCH (12:41)
[2018-09-13] MEDS: SCOPOLAMINE 1.5MG/72HR PATCH TRANSDERM SCH (16:03)
[2018-09-13 17:13] LABS: Glucose,Whole Blood 151 mg/dL (75-99)
[2018-09-13 20:29] LABS: Glucose,Whole Blood 110 mg/dL (75-99)
[2018-09-13] MEDS: ATORVASTATIN 10 MG TAB PO SCH (21:21)
[2018-09-13] MEDS ORDERED: HYDROcodone/APAP 10-325MG 1 EACH TAB PO ONE (22:19)
[2018-09-13] MEDS ORDERED: METOPROLOL TARTRATE 12.5 MG TAB PO STA (22:25)
--- NOTE | 2018-09-14 01:04 | PN ---
PROGRESS NOTE DATE OF SERVICE: 09/13/2018 PRESENTING COMPLAINT: Tired, abdominal pain. INTERVAL HISTORY: This patient has metastatic pancreatic cancer with a mass producing into the duodenum, which is ulcerated and has recurrent bleeding. The patient is having abdominal pain, requesting [place] to be upped. Eating very small amounts. No further dark stools. The patient did get a unit of blood earlier today. Family members including the and daughter at the bedside. REVIEW OF SYSTEMS: Done for constitutional, cardiovascular, GI, pulmonary and relevant findings as above. CURRENT MEDICATIONS: Reviewed that include IV Diflucan, IV Zosyn and IV vancomycin. PHYSICAL EXAMINATION: VITAL SIGNS: Temperature 97.7, pulse 80, respiration 14, blood pressure 89/63, pulse ox 97 percent. GENERAL APPEARANCE: Lying in bed, tired-appearing. EYES: Pupils equal. Conjunctivae pale. NECK: JVD unable to assess. Mass not palpable. RESPIRATORY: Effort increased. LUNGS: Decreased breath sounds. CARDIOVASCULAR: First and second sounds normal. Edema present. ABDOMEN: Tender, soft. Liver and spleen not palpable. PSYCHIATRY: Awake, tired-appearing. INVESTIGATIONS: White count 20.6, hemoglobin 7.4, potassium 4.3, sodium 129, BUN 16, creatinine 0.36. Accu-Cheks are noted. Albumin 1.9. ASSESSMENT: 1. Severe medical debility asthenia from underlying malignancy that is progressive. 2. Recent acute non-Q-wave myocardial infarction. 3. Metastatic pancreatic cancer with a large necrotic mass in the pancreatic head with extension to the duodenum with intermittent bleeding. 4. Anxiety not otherwise specified. 5. Microcytic anemia, combination of iron deficiency and acute blood loss anemia. 6. Moderate to severe protein calorie malnutrition from decreased oral intake. 7. Hypoalbuminemia from moderate to severe protein calorie intake. 8. Advancing medical debility. PLAN: I had a lengthy talk with the patient's family members at the bedside. Prognosis is guarded. Supportive care is to continue. Oral intake is encouraged. We will increase patient's [place] 10 to every 4 hours. We will also get a heating pad for the stomach. MMODL / IJN: [id number] /
[2018-09-14] MEDS: HYDROcodone/APAP 10-325MG 1 EACH TAB PO SCH ×6 (02:21→20:34)
[2018-09-14] MEDS: HYDROmorphone 0.5 MG/0.5 ML SYRINGE IVP PRN (02:26)
[2018-09-14] MEDS: SODIUM CHLORIDE 0.9% 1,000 ML IV SCH ×4 (04:38→20:35)
[2018-09-14 05:15] LABS: Anion Gap 5 mmol/L; Anisocytosis Moderate; Blood Urea Nitrogen 17 mg/dL (9-20); Calcium 7.6 mg/dL (8.4-10.2); Carbon Dioxide 19 mmol/L (22-30); Chloride 107 mmol/L (98-107); Glucose 115 mg/dL (74-99); HCT 28.8 % (39.0-53.0); Hypochromasia Marked; MCH 26.3 pg (25.0-35.0); MCHC 31.2 g/dL (31.0-37.0); MCV 84.3 fL (80.0-100.0); Mean Platelet Volume 7.3; Microcytosis Slight; Platelet Count 487 k/uL (150-450); Poikilocytosis Moderate; Potassium 4.1 mmol/L (3.5-5.1); RBC 3.41 m/uL (4.30-5.90); RDW 20.9 % (11.5-15.5); Sodium 131 mmol/L (137-145)
[2018-09-14 07:05] LABS: Band Neutrophils % 45 %; Lymphocytes # (M) 0.84 k/uL (1.0-4.8); Metamyelocytes # (M) 0.42 k/uL (0); Metamyelocytes % 2 %; Monocytes # (M) 1.68 k/uL (0-1.0); Neutrophils % (M) 43 %; Nucleated Red Blood Cells 0 /100 WBC (0-0); Total Cells Counted 200
[2018-09-14 07:09] LABS: RBC Fragments Present
[2018-09-14 07:12] LABS: Polychromasia Present
[2018-09-14 08:32] LABS: Glucose,Whole Blood 151 mg/dL (75-99)
[2018-09-14] MEDS: ASPIRIN 81 MG PO SCH (08:32)
[2018-09-14] MEDS: METOPROLOL TARTRATE 12.5 MG TAB PO SCH ×2 (08:32→20:41)
[2018-09-14] MEDS: CYANOCOBALAMIN 500 MCG TAB PO SCH (08:32)
[2018-09-14] MEDS: PANTOPRAZOLE 40 MG TABLET PO SCH (08:33)
[2018-09-14] MEDS: VANCOMYCIN 1,500 MG in SODIUM CHLORIDE 0.9% 250 ML IVPB SCH ×2 (08:33→16:35)
[2018-09-14] MEDS: FLUCONAZOLE IN NACL,ISO-OSM 100 MG in SALINE 1 50ML.BAG IVPB SCH (08:33)
[2018-09-14] MEDS: PIPERACILLIN-TAZOBACTAM 3.375 GM in SODIUM CHLORIDE 0.9% 100 ML IVPB SCH ×2 (08:33→16:34)
[2018-09-14] MEDS: CHOLESTYRAMINE (WITH SUGAR) 4 GM PACKET PO SCH ×4 (08:34→20:37)
[2018-09-14] MEDS: INSULIN ASPART (NovoLOG) 100 UNIT/ML VIAL SQ SCH ×4 (08:34→21:08)
[2018-09-14] MEDS: LIPASE 5,000/PROTEASE 17,000/AMYLASE 24,000 PO SCH ×6 (08:34→18:42)
[2018-09-14] MEDS: DEXAMETHASONE 4 MG TAB PO SCH ×3 (09:04→20:43)
[2018-09-14] MEDS: ACYCLOVIR 400 MG/10 ML CUP PO SCH ×3 (09:04→20:43)
[2018-09-14 10:12] VITALS: BMI 33.0
[2018-09-14 11:42] LABS: Glucose,Whole Blood 147 mg/dL (75-99)
[2018-09-14] MEDS: FOLIC ACID 1 MG TAB PO SCH (11:43)
[2018-09-14 17:42] LABS: Glucose,Whole Blood 148 mg/dL (75-99)
[2018-09-14] MEDS: ATORVASTATIN 10 MG TAB PO SCH (20:36)
[2018-09-14 20:49] LABS: Glucose,Whole Blood 156 mg/dL (75-99)
[2018-09-15] MEDS: HYDROcodone/APAP 10-325MG 1 EACH TAB PO SCH ×6 (00:23→21:47)
[2018-09-15] MEDS: PIPERACILLIN-TAZOBACTAM 3.375 GM in SODIUM CHLORIDE 0.9% 100 ML IVPB SCH ×3 (00:44→18:07)
[2018-09-15] MEDS: VANCOMYCIN 1,500 MG in SODIUM CHLORIDE 0.9% 250 ML IVPB SCH ×2 (00:44→07:49)
--- NOTE | 2018-09-15 04:02 | PN ---
PROGRESS NOTE DATE OF SERVICE: 09/14/2018 PRESENTING COMPLAINT: Tired, abdominal pain. INTERVAL HISTORY: This patient has metastatic pancreatic cancer with a mass protruding into the duodenum, which is ulcerated and bleeds intermittently. The patient is barely eating much. Pain remains a trouble. Getting more and more weak and tired. Edema is present. Pretty much has remained in bed. REVIEW OF SYSTEMS: Done for constitutional, cardiovascular, GI, pulmonary; relevant findings as above. CURRENT MEDICATIONS: Reviewed and include IV Diflucan, IV Zosyn, IV vancomycin. PHYSICAL EXAMINATION: Temperature 97.8 pulse 94, respiration 16, blood pressure 100/74, pulse ox 94 percent on room air. GENERAL APPEARANCE: Tired, lethargic, lying in bed EYES: Pupils equal. Conjunctivae pale. NECK: JVD unable to assess. Mass not palpable. Respiratory effort increased. LUNGS: Diminished breath sounds. CARDIOVASCULAR: First and seconds sounds normal. Edema present. ABDOMEN: Tender, soft. Liver and spleen not palpable. PSYCHIATRY: Tired, does answer questions. INVESTIGATIONS: White count 21, hemoglobin 9, potassium 4.1, BUN 17, creatinine 0.43. ASSESSMENT: 1. Severe medical debility, asthenia from underlying malignancy, continues to get worse. 2. Recent acute non-Q-wave myocardial infarction. 3. Metastatic pancreatic cancer with a large necrotic mass in the pancreatic head with extension to the duodenum with intermittent bleeding. 4. Anxiety, not otherwise specified. 5. Abdominal pain from underlying malignancy. 6. Microcytic anemia, combination of iron deficiency and acute blood loss anemia. 7. Moderate to severe protein calorie malnutrition from decreased oral intake. 8. Hypoalbuminemia from moderate to severe protein calorie intake. 9. Advancing medical debility. PLAN: I talked to the at the bedside. Options are extremely limited. The patient is put on IV Dilaudid for pain. Will discuss with Oncology tomorrow. The patient is rapidly declining. May need to consider hospice. MMODL / IJN: [id number] /
[2018-09-15 05:02] LABS: Anion Gap 7 mmol/L; Blood Urea Nitrogen 26 mg/dL (9-20); Calcium 7.6 mg/dL (8.4-10.2); Carbon Dioxide 17 mmol/L (22-30); Chloride 108 mmol/L (98-107); Glucose 156 mg/dL (74-99); Potassium 4.1 mmol/L (3.5-5.1); Sodium 132 mmol/L (137-145)
[2018-09-15 06:57] LABS: Glucose,Whole Blood 191 mg/dL (75-99)
[2018-09-15] MEDS ORDERED: VANCOMYCIN TROUGH DUE 1 EACH MISC MISCELLANE ONE (07:00)
[2018-09-15 07:07] LABS: Anisocytosis Moderate; Basophils % (A) 0 %; Eosinophils % (A) 0 %; HCT 27.6 % (39.0-53.0); HGB 8.3 gm/dL (13.0-17.5); Hypochromasia Marked; Lymphocytes # (A) 0.3 k/uL (1.0-4.8); Lymphocytes % (A) 2 %; MCH 25.7 pg (25.0-35.0); MCHC 30.2 g/dL (31.0-37.0); MCV 85.3 fL (80.0-100.0); Mean Platelet Volume 6.9; Microcytosis Slight; Monocytes # (A) 1.1 k/uL (0-1.0); Monocytes % (A) 5 %; Neutrophils % (A) 91 %; Platelet Count 482 k/uL (150-450); Poikilocytosis Slight; RBC 3.24 m/uL (4.30-5.90); RDW 21.5 % (11.5-15.5); WBC 21.9 k/uL (3.8-10.6)
[2018-09-15] MEDS: SODIUM CHLORIDE 0.9% 1,000 ML IV SCH ×3 (07:08→21:50)
[2018-09-15] MEDS: INSULIN ASPART (NovoLOG) 100 UNIT/ML VIAL SQ SCH ×4 (07:18→21:50)
[2018-09-15] MEDS: LIPASE 5,000/PROTEASE 17,000/AMYLASE 24,000 PO SCH ×6 (07:35→18:08)
[2018-09-15] MEDS: CHOLESTYRAMINE (WITH SUGAR) 4 GM PACKET PO SCH ×4 (07:35→21:50)
[2018-09-15] MEDS: FLUCONAZOLE IN NACL,ISO-OSM 100 MG in SALINE 1 50ML.BAG IVPB SCH (07:45)
[2018-09-15] MEDS: METOPROLOL TARTRATE 12.5 MG TAB PO SCH ×2 (07:48→21:48)
[2018-09-15] MEDS: ACYCLOVIR 400 MG/10 ML CUP PO SCH ×3 (07:48→21:48)
[2018-09-15] MEDS: CYANOCOBALAMIN 500 MCG TAB PO SCH (07:49)
[2018-09-15] MEDS: DEXAMETHASONE 4 MG TAB PO SCH ×3 (07:49→21:48)
[2018-09-15] MEDS: ASPIRIN 81 MG PO SCH (07:49)
[2018-09-15] MEDS: PANTOPRAZOLE 40 MG TABLET PO SCH (07:50)
--- NOTE | 2018-09-15 09:46 | CDI ---
Documentation Clarification Form Date: 09/15/2018 From: Josey Calixto RN CCDS Admit Date: 09/11/2018 1:59:00 PM Patient Name: Roberto Massey Visit Number: [id number] Discharge Date: ATTENTION: The Clinical Documentation Specialists (CDI) and [facility] Coding Staff appreciate your assistance in clarifying documentation. Please respond to the clarification below the line at the bottom and electronically sign. The CDI & [facility] Coding staff will review the response and follow-up if needed. Please note: Queries are made part of the Legal Health Record. If you have any questions, please contact the author of this message via ITS. Dr. Cheko Rincon The patient presents with shortness of breath and weakness. History/Risk Factors:68 year old male presents to the ED with weakness and shortness of breath. Medical history Pancreatic cancer with metastasis to liver. Clinical Indicators: Lab findings: Wbc 23.0; [place] 789, hgb 8.2 Radiology findings: CXR no acute process. Vital Signs: 53/39 91 98.0 90% ra18 Treatment: Vancomycin ivpb; Zosyn ivpb Consults: GI, ICU mgt, Hem/ Onc, Radiology Onc, Cardiology In your professional opinion, can you please clarify the diagnosis for the treatment of Vancomycin and Zosyn? * Infection (specify type ) * Suspected gram negative pneumonia * Infection (specify type ) ruled out. * Other, please specify * Unable to determine (Last Revision: August 2017) unable to determine MTDD
--- NOTE | 2018-09-15 10:09 | CDI ---
Documentation Clarification Form Date: 09/15/2018 9:50:02 AM From: Josey Calixto RN, CCDS Admit Date: 09/11/2018 1:59:00 PM Patient Name: Roberto Massey Visit Number: [id number] Discharge Date: ATTENTION: The Clinical Documentation Specialists (CDI) and [facility] Coding Staff appreciate your assistance in clarifying documentation. Please respond to the clarification below the line at the bottom and electronically sign. The CDI & [facility] Coding staff will review the response and follow-up if needed. Please note: Queries are made part of the Legal Health Record. If you have any questions, please contact the author of this message via ITS. Dr. Cheko Rincon Recent acute non Q Wave myocardial infarction is documented in the H & P. Patient History/Risk Factors: 68 year old male presents to the Ed with weakness and shortness of breath. Medical history of Pancreatic cancer with metastasis to the liver. Clinical Indicators: Troponin: 0.029 EKG Results: NSR rate of 71 CO 116 QRS 88 QTc 432 Treatment: 0.9ns ivfl, Consult: Cardiology In order to capture the severity of condition and necessary documentation specificity, please clarify: * Age of infarction if known * Acute MD (within the last 4 weeks) * Subsequent MD (another MD within 4 weeks) * New Acute MD - (another MD after 4 weeks) * Old MD (MD more than 4 weeks old) * Specific date if known: Unable to determine (Last Revision: February 2017) acute non q mi on 09/01/18 MTDD
[2018-09-15 11:07] LABS: Glucose,Whole Blood 165 mg/dL (75-99)
[2018-09-15] MEDS: FOLIC ACID 1 MG TAB PO SCH (11:59)
[2018-09-15] MEDS: HYDROmorphone 0.5 MG/0.5 ML SYRINGE IVP PRN (12:03)
[2018-09-15 12:05] LABS: Glucose,Whole Blood 174 mg/dL (75-99)
--- NOTE | 2018-09-15 12:08 | P.PN ---
Subjective Progress Note Date: 09/15/18 Principal diagnosis: Metastatic Pancreatic Cancer Pain and confusion, No improvement over weekend. Objective - Vital Signs Vital signs: Vital Signs Temp 97.1 F L 09/15/18 08:00 Pulse 108 H 09/15/18 08:00 Resp 14 09/15/18 08:00 BP 98/82 09/15/18 08:00 Pulse Ox 97 09/15/18 08:00 Intake & Output 09/14/18 09/15/18 09/15/18 18:59 06:59 18:59 Intake Total 1950 2200 750 Output Total 510 380 120 Balance 1440 1820 630 Weight 92.9 kg 92.7 kg Intake: IV 1950 2150 700 Fluconazole in NaCl,Iso- 100 Osm 100 mg In Saline 1 50ml.bag @ 50 mls/hr IVPB DAILY [facility] Rx#:[id number] Piperacillin-Tazobactam 3 100 100 100 .375 gm In Sodium Chloride 0.9% 100 ml @ 25 mls/hr IVPB Q8HR [facility] Rx# :[id number] Sodium Chloride 0.9% 1, 1500 1800 600 000 ml @ 150 mls/hr IV . Q6H40M [facility] Rx#:[id number] Vancomycin 1,500 mg In 250 250 Sodium Chloride 0.9% 250 ml @ 125 mls/hr IVPB Q8HR [facility] Rx#:[id number] Oral 50 50 Output: Urine 510 380 120 Other: Voiding Method Indwelling Catheter Indwelling Catheter Indwelling Catheter - Exam Gen: NAD, pale Head: NC Neck: Supple Thrush, erythema Lungs: Diminished Bibasilar, no increased effort Abdomen: Tender, mild distention Heart: Tachy Reg Ext BLE edema Neuro: NO sensory or motor deficits Confused, Malnourished, Chronically ill - Labs CBC & Chem 7: 09/16/18 07:30 09/16/18 07:30 Labs: Abnormal Lab Results - Last 24 Hours (Table) 09/12/18 09/14/18 09/14/18 Range/Units 17:02 17:41 20:46 WBC (3.8-10.6) k/uL RBC (4.30-5.90) m/uL Hgb (13.0-17.5) gm/dL Hct (39.0-53.0) % MCHC (31.0-37.0) g/dL RDW (11.5-15.5) % Plt Count (150-450) k/uL Neutrophils # (1.3-7.7) k/uL Lymphocytes # (1.0-4.8) k/uL Monocytes # (0-1.0) k/uL Sodium (137-145) mmol/L Chloride (98-107) mmol/L Carbon Dioxide (22-30) mmol/L BUN (9-20) mg/dL Glucose (74-99) mg/dL POC Glucose (mg/dL) 165 H 148 H 156 H (75-99) mg/dL Calcium (8.4-10.2) mg/dL Vancomycin Trough ug/mL 09/15/18 09/15/18 09/15/18 Range/Units 04:23 04:23 06:55 WBC 21.9 H (3.8-10.6) k/uL RBC 3.24 L (4.30-5.90) m/uL Hgb 8.3 L (13.0-17.5) gm/dL Hct 27.6 L (39.0-53.0) % MCHC 30.2 L (31.0-37.0) g/dL RDW 21.5 H (11.5-15.5) % Plt Count 482 H (150-450) k/uL Neutrophils # 20.0 H (1.3-7.7) k/uL Lymphocytes # 0.3 L (1.0-4.8) k/uL Monocytes # 1.1 H (0-1.0) k/uL Sodium 132 L (137-145) mmol/L Chloride 108 H (98-107) mmol/L Carbon Dioxide 17 L (22-30) mmol/L BUN 26 H (9-20) mg/dL Glucose 156 H (74-99) mg/dL POC Glucose (mg/dL) 191 H (75-99) mg/dL Calcium 7.6 L (8.4-10.2) mg/dL Vancomycin Trough ug/mL 09/15/18 Range/Units 06:57 WBC (3.8-10.6) k/uL RBC (4.30-5.90) m/uL Hgb (13.0-17.5) gm/dL Hct (39.0-53.0) % MCHC (31.0-37.0) g/dL RDW (11.5-15.5) % Plt Count (150-450) k/uL Neutrophils # (1.3-7.7) k/uL Lymphocytes # (1.0-4.8) k/uL Monocytes # (0-1.0) k/uL Sodium (137-145) mmol/L Chloride (98-107) mmol/L Carbon Dioxide (22-30) mmol/L BUN (9-20) mg/dL Glucose (74-99) mg/dL POC Glucose (mg/dL) (75-99) mg/dL Calcium (8.4-10.2) mg/dL Vancomycin Trough 30.3 H* ug/mL Microbiology - Last 24 Hours (Table) 09/12/18 09:07 Blood Culture - Preliminary Blood No Growth after 72 hours 09/12/18 09:16 Blood Culture - Preliminary Blood No Growth after 72 hours 09/11/18 12:15 Blood Culture - Preliminary Blood No Growth after 72 hours Assessment and Plan Plan: Assessment and Recommendations: 1. Black Tarry Stools - Secondary to Tumor Invasion - Blood Loss Component. 2. Metastatic Pancreatic Cancer: - Status Post one treatment with Gemzar and Abraxane 3. Chronic Illness Myopathy and debility: - PT/OT Evaluation and treatment please, benefit from SHERRY versus IPR vs home PT/OT after discharge 4. Microcytic Anemia: Malignancy - Status Post EGD - Monitor Daily CBC 5. NSTEMI: Per primary and Cardiology 6. Moderate to Severe Protein Calorie Malnutrition: - this is related to a component of failure to thrive, even at home refusing to increase PO intake despite appetite stimulators. 7. Neoplastic Related Pain - Worsening - Add Fentanyl Patch 25mcg Plan: - Patient continues in the care of ICU, does not appear to be improving - Triana Cultures are Negative, greatest threat is the cancer and failure to thrive - He continues to become weaker and more malnourished, with decreased performance status the risks of chemotherapy compared to benefit become greater. - has asked about Hospice care and agree with information meeting today - Will discuss code status and extreme life saving measures, as he is currently still full CPR Continue supportive care Monitor for active blood loss Transfusion support lowered threshold transfuse with hemoglobin less than 7.5 Chemo on hold for decreased performance and acute illness/Declined status in [facility] Care IAN Tomas
--- NOTE | 2018-09-15 16:43 | P.PN ---
Subjective Progress Note Date: 09/15/18 Principal diagnosis: Melena, metastatic pancreatic cancer Patient seen lying in bed. No nausea or vomiting. Poor oral intake. No bowel movements reported today. Objective - Vital Signs Vital signs: Vital Signs Temp 98.4 F 09/15/18 12:00 Pulse 92 09/15/18 12:00 Resp 12 09/15/18 12:00 BP 98/82 09/15/18 10:00 Pulse Ox 96 09/15/18 12:00 Intake & Output 09/14/18 09/15/18 09/15/18 18:59 06:59 18:59 Intake Total 1950 2200 1350 Output Total 510 380 230 Balance 1440 1820 1120 Weight 92.9 kg 92.7 kg Intake: IV 1950 2150 1300 Fluconazole in NaCl,Iso- 100 Osm 100 mg In Saline 1 50ml.bag @ 50 mls/hr IVPB DAILY [facility] Rx#:[id number] Piperacillin-Tazobactam 3 100 100 100 .375 gm In Sodium Chloride 0.9% 100 ml @ 25 mls/hr IVPB Q8HR [facility] Rx# :[id number] Sodium Chloride 0.9% 1, 1500 1800 1200 000 ml @ 150 mls/hr IV . Q6H40M [facility] Rx#:[id number] Vancomycin 1,500 mg In 250 250 Sodium Chloride 0.9% 250 ml @ 125 mls/hr IVPB Q8HR [facility] Rx#:[id number] Oral 50 50 Output: Urine 510 380 230 Other: Voiding Method Indwelling Catheter Indwelling Catheter Indwelling Catheter - Exam On physical examination, patient appears comfortable in no apparent distress. HEAD: Normocephalic, atraumatic. EYES: Minimal icterus. No conjunctival injection. MOUTH: No lesions, tongue midline. NECK: Trachea midline, no gross abnormalities. CHEST: Decreased air entry in all lung rm. ABDOMEN: Soft, mildly tender to palpation. Bowel sounds are positive. No organomegaly. No guarding or rigidity. EXTREMITIES: No pedal edema. SKIN: No rashes. NEUROLOGIC: Alert and oriented x3. No focal deficits. - Labs CBC & Chem 7: 09/15/18 04:23 09/15/18 04:23 Labs: Abnormal Lab Results - Last 24 Hours (Table) 09/12/18 09/14/18 09/14/18 Range/Units 17:02 17:41 20:46 WBC (3.8-10.6) k/uL RBC (4.30-5.90) m/uL Hgb (13.0-17.5) gm/dL Hct (39.0-53.0) % MCHC (31.0-37.0) g/dL RDW (11.5-15.5) % Plt Count (150-450) k/uL Neutrophils # (1.3-7.7) k/uL Lymphocytes # (1.0-4.8) k/uL Monocytes # (0-1.0) k/uL Sodium (137-145) mmol/L Chloride (98-107) mmol/L Carbon Dioxide (22-30) mmol/L BUN (9-20) mg/dL Glucose (74-99) mg/dL POC Glucose (mg/dL) 165 H 148 H 156 H (75-99) mg/dL Calcium (8.4-10.2) mg/dL Vancomycin Trough ug/mL 09/15/18 09/15/18 09/15/18 Range/Units 04:23 04:23 06:55 WBC 21.9 H (3.8-10.6) k/uL RBC 3.24 L (4.30-5.90) m/uL Hgb 8.3 L (13.0-17.5) gm/dL Hct 27.6 L (39.0-53.0) % MCHC 30.2 L (31.0-37.0) g/dL RDW 21.5 H (11.5-15.5) % Plt Count 482 H (150-450) k/uL Neutrophils # 20.0 H (1.3-7.7) k/uL Lymphocytes # 0.3 L (1.0-4.8) k/uL Monocytes # 1.1 H (0-1.0) k/uL Sodium 132 L (137-145) mmol/L Chloride 108 H (98-107) mmol/L Carbon Dioxide 17 L (22-30) mmol/L BUN 26 H (9-20) mg/dL Glucose 156 H (74-99) mg/dL POC Glucose (mg/dL) 191 H (75-99) mg/dL Calcium 7.6 L (8.4-10.2) mg/dL Vancomycin Trough ug/mL 04/22/19 04/22/19 Range/Units 06:57 12:02 WBC (3.8-10.6) k/uL RBC (4.30-5.90) m/uL Hgb (13.0-17.5) gm/dL Hct (39.0-53.0) % MCHC (31.0-37.0) g/dL RDW (11.5-15.5) % Plt Count (150-450) k/uL Neutrophils # (1.3-7.7) k/uL Lymphocytes # (1.0-4.8) k/uL Monocytes # (0-1.0) k/uL Sodium (137-145) mmol/L Chloride (98-107) mmol/L Carbon Dioxide (22-30) mmol/L BUN (9-20) mg/dL Glucose (74-99) mg/dL POC Glucose (mg/dL) 174 H (75-99) mg/dL Calcium (8.4-10.2) mg/dL Vancomycin Trough 30.3 H* ug/mL Microbiology - Last 24 Hours (Table) 09/12/18 09:07 Blood Culture - Preliminary Blood No Growth after 72 hours 09/12/18 09:16 Blood Culture - Preliminary Blood No Growth after 72 hours 09/11/18 12:15 Blood Culture - Preliminary Blood No Growth after 72 hours Assessment and Plan (1) Acute blood loss anemia Narrative/Plan: Hemoglobin is stable today at 8.3 from 9 previously. No signs or symptoms of GI bleeding today. The patient did have ulcerated invading mass into small bowel on previous EGD which is likely the source of patient's acute blood loss anemia. Current Visit: No Status: Acute Code(s): D62 - ACUTE POSTHEMORRHAGIC ANEMIA SNOMED Code(s): 714380137 (2) Metastasis from pancreatic cancer Current Visit: Yes Status: Acute Code(s): C79.9 - SECONDARY MALIGNANT NEOPLASM OF UNSPECIFIED SITE; C25.9 - MALIGNANT NEOPLASM OF PANCREAS, UNSPECIFIED SNOMED Code(s): 276418419 Plan: Supportive care Diet as tolerated Monitor hemoglobin and hematocrit and transfuse as needed Continue pancreatic enzyme supplementation with meals Continue Protonix therapy Continue to monitor for signs and symptoms of GI bleeding No plan on endoscopic therapy at this time Oncology note review, plan for hospice meeting Thank you for allowing us to participate in the care of the patient we will continue to follow
[2018-09-15 17:12] LABS: Glucose,Whole Blood 171 mg/dL (75-99)
--- NOTE | 2018-09-15 19:48 | PN ---
PROGRESS NOTE DATE OF SERVICE: September 15, 2018 PRESENTING COMPLAINT: Tired, lethargic. INTERVAL HISTORY: The patient with metastatic pancreatic cancer with mass protruding into the duodenum, which is ulcerated and bleeds intermittently. Continues to have abdominal pain, hardly eating, getting more and more weak and tired. Significant edema is present. Has remained bed-bound. REVIEW OF SYSTEMS: Done for constitutional, cardiovascular, GI, pulmonary; relevant findings as above. CURRENT MEDICATIONS: Reviewed that include IV Diflucan, IV Zosyn and IV vancomycin. EXAMINATION: VITAL SIGNS: Temperature 98.4, pulse 92, respirations 12, blood pressure 125/89, pulse ox 96% on room air. GENERAL APPEARANCE: Propped up, tired. EYES: Pupils equal. Conjunctivae pale. NECK: JVD unable to assess. Mass not palpable. RESPIRATORY: Effort increased. LUNGS: Decreased breath sounds. VITAL SIGNS: First and second sounds normal. Significant edema present. ABDOMEN: Tender, soft. Liver and spleen not palpable. Slightly bloated. PSYCHIATRY: Awake, answers questions. INVESTIGATIONS: White count 21.9, hemoglobin 8.3, platelets 482, potassium 4.1, BUN 6, creatinine 0.71. ASSESSMENT: 1. Severe medical debility asthenia, progressive worsening from underlying malignancy. 2. Acute non-Q-wave myocardial infarction on 09/01/2018. 3. Metastatic pancreatic cancer with large necrotic mass in the pancreatic head with extension into the duodenum with intermittent bleeding. 4. Anxiety not otherwise specified. 5. Abdominal pain, significant from malignancy. 6. Acute blood loss anemia, from gastrointestinal bleed. 7. Moderate to severe protein calorie malnutrition from decreased oral intake. 8. Hypoalbuminemia from moderate to severe protein calorie intake. 9. Worsening medical debility. PLAN: This morning, I spoke to Dr. Reid over the phone. Patient's functional status is rapidly declining. Oral intake is not good. Doing poorly. I suggested hospice and he is agreeable to the same. I did talk to patient's , who also agrees that the patient is now going downhill. Did also discuss with the patient. I spoke to the pillowcase maker who is initiating the hospice meeting late this afternoon. I will DC patient's IV antibiotics. The patient can be moved out of the ICU. Prognosis remains poor. Total time spent today was about 40 minutes with over 25 minutes of discussion. MMODL / IJN: [id number] /
[2018-09-15 20:22] LABS: Glucose,Whole Blood 171 mg/dL (75-99)
[2018-09-15] MEDS ORDERED: ONDANSETRON 4 MG/2 ML VIAL IVP PRN (21:38)
[2018-09-15] MEDS: ATORVASTATIN 10 MG TAB PO SCH (21:47)
[2018-09-16] MEDS ORDERED: VANCOMYCIN 1,500 MG in SODIUM CHLORIDE 0.9% 250 ML IVPB SCH ×2
[2018-09-16] MEDS: HYDROcodone/APAP 10-325MG 1 EACH TAB PO SCH ×5 (04:44→15:53)
[2018-09-16] MEDS: SODIUM CHLORIDE 0.9% 1,000 ML IV SCH ×2 (04:45→08:52)
[2018-09-16 07:04] LABS: Glucose,Whole Blood 173 mg/dL (75-99)
[2018-09-16] MEDS: INSULIN ASPART (NovoLOG) 100 UNIT/ML VIAL SQ SCH ×2 (07:59→14:46)
--- NOTE | 2018-09-16 08:18 | XR ---
EXAMINATION TYPE: XR chest 1V portable DATE OF EXAM: 09/16/2018 HISTORY: Shortness of breath. COMPARISON: 09/11/2018 TECHNIQUE: Single view of the chest is submitted. FINDINGS: Demonstrated are scattered senescent parenchymal change. New basilar infiltrates and/or atelectasis with small right-sided effusion. Mediport catheter unchang ed in position. The heart is stable. Hilar and mediastinal structures are within normal limits. Degenerative changes are seen of the dorsal spine. Distended GI contents upper abdomen. IMPRESSION: 1. New basilar infiltrates and/or atelectasis with small right-sided effusion.
[2018-09-16 08:38] LABS: Anion Gap 11 mmol/L; Blood Urea Nitrogen 37 mg/dL (9-20); Calcium 8.1 mg/dL (8.4-10.2); Carbon Dioxide 16 mmol/L (22-30); Chloride 109 mmol/L (98-107); Glucose 166 mg/dL (74-99); Potassium 4.4 mmol/L (3.5-5.1); Sodium 136 mmol/L (137-145)
[2018-09-16] MEDS: LIPASE 5,000/PROTEASE 17,000/AMYLASE 24,000 PO SCH ×6 (08:48→15:54)
[2018-09-16] MEDS: CHOLESTYRAMINE (WITH SUGAR) 4 GM PACKET PO SCH ×4 (08:48→15:53)
[2018-09-16] MEDS: ACYCLOVIR 400 MG/10 ML CUP PO SCH ×2 (08:49→15:53)
[2018-09-16] MEDS: CYANOCOBALAMIN 500 MCG TAB PO SCH (08:50)
[2018-09-16] MEDS: PANTOPRAZOLE 40 MG TABLET PO SCH (08:50)
[2018-09-16] MEDS: METOPROLOL TARTRATE 12.5 MG TAB PO SCH (08:50)
[2018-09-16] MEDS: ASPIRIN 81 MG PO SCH (08:50)
[2018-09-16] MEDS: DEXAMETHASONE 4 MG TAB PO SCH ×2 (08:52→15:53)
--- NOTE | 2018-09-16 11:14 | P.PN ---
Subjective Progress Note Date: 09/16/18 Principal diagnosis: Melena metastatic pancreatic cancer Lying in bed. No nausea vomiting. Poor oral intake. No BMs today. Hemoglobin yesterday 8.3. Objective - Vital Signs Vital signs: Vital Signs Temp 98.0 F 09/16/18 08:00 Pulse 96 09/16/18 08:00 Resp 19 09/16/18 08:00 BP 103/83 09/16/18 08:00 Pulse Ox 93 L 09/16/18 08:00 Intake & Output 09/15/18 09/16/18 09/16/18 18:59 06:59 18:59 Intake Total 2050 1800 720 Output Total 340 425 100 Balance 1710 1375 620 Weight 94.1 kg Intake: IV 2000 1800 600 Piperacillin-Tazobactam 3 200 .375 gm In Sodium Chloride 0.9% 100 ml @ 25 mls/hr IVPB Q8HR [facility] Rx# :[id number] Sodium Chloride 0.9% 1, 1800 1800 600 000 ml @ 150 mls/hr IV . Q6H40M [facility] Rx#:[id number] Oral 50 120 Output: Urine 340 425 100 Other: Voiding Method Indwelling Catheter Indwelling Catheter Indwelling Catheter - Exam General appearance: The patient is alert, oriented, in no acute distress. HET: Head is normocephalic and atraumatic. Pupils are equal and reactive. Oropharynx is clear without lesions. Neck: Supple without lymphadenopathy. Trachea midline. Heart: S1 S2. Regular rate and rhythm. Lungs: No crackles or wheezes are heard. Abdomen: Soft, nontender, nondistended with bowel sounds. No peritoneal signs. No palpable organomegaly or masses. Extremities: Generalized anasarca. Neurological: No focal deficits. Strength and sensation are grossly intact. - Labs CBC & Chem 7: 09/15/18 04:23 09/16/18 07:30 Labs: Abnormal Lab Results - Last 24 Hours (Table) 09/15/18 09/15/18 09/15/18 Range/Units 12:02 17:10 20:19 Sodium (137-145) mmol/L Chloride (98-107) mmol/L Carbon Dioxide (22-30) mmol/L BUN (9-20) mg/dL Glucose (74-99) mg/dL POC Glucose (mg/dL) 174 H 171 H 171 H (75-99) mg/dL Calcium (8.4-10.2) mg/dL 09/16/18 09/16/18 Range/Units 07:02 07:30 Sodium 136 L (137-145) mmol/L Chloride 109 H (98-107) mmol/L Carbon Dioxide 16 L (22-30) mmol/L BUN 37 H (9-20) mg/dL Glucose 166 H (74-99) mg/dL POC Glucose (mg/dL) 173 H (75-99) mg/dL Calcium 8.1 L (8.4-10.2) mg/dL Microbiology - Last 24 Hours (Table) 09/11/18 12:15 Blood Culture - Preliminary Blood No Growth after 96 hours 09/12/18 09:07 Blood Culture - Preliminary Blood No Growth after 72 hours 09/12/18 09:16 Blood Culture - Preliminary Blood No Growth after 72 hours Assessment and Plan (1) GI bleed Narrative/Plan: 68-year-old male metastatic pancreatic cancer presents with symptomatic anemia GI bleed passage of dark melanotic bowel movements component of acute blood loss status post EGD 10 days ago with findings of duodenal mass suspect invasion from pancreatic head mass biopsies negative for malignancy. Current Visit: No Status: Acute Code(s): K92.2 - GASTROINTESTINAL HEMORRHAGE, UNSPECIFIED SNOMED Code(s): 01013810 (2) Anemia Current Visit: Yes Status: Acute Code(s): D64.9 - ANEMIA, UNSPECIFIED SNOMED Code(s): 194804068 (3) Metastasis from pancreatic cancer Current Visit: Yes Status: Acute Code(s): C79.9 - SECONDARY MALIGNANT NEOPLASM OF UNSPECIFIED SITE; C25.9 - MALIGNANT NEOPLASM OF PANCREAS, UNSPE CIFIED SNOMED Code(s): 052308430 (4) Duodenal mass Current Visit: No Status: Acute Code(s): K31.89 - OTHER DISEASES OF STOMACH AND DUODENUM SNOMED Code(s): 906682907 Plan: Supportive care Diet as tolerated Nursing reports family coming in from out of town for possible hospice discussion. Continue with present medical therapy. No plan on endoscopic therapy at this time. We'll follow as needed. Assessment and plan a care discussed with Dr. Ambrosio
[2018-09-16 12:06] VITALS: BP 118/85; PULSE 129; RESP 16; TEMP 97.5
[2018-09-16 12:07] LABS: Anisocytosis Moderate; HCT 30.5 % (39.0-53.0); HGB 8.9 gm/dL (13.0-17.5); Hypochromasia Marked; MCH 25.6 pg (25.0-35.0); MCHC 29.2 g/dL (31.0-37.0); MCV 87.7 fL (80.0-100.0); Mean Platelet Volume 7.7; Platelet Count 488 k/uL (150-450); Poikilocytosis Moderate; RBC 3.47 m/uL (4.30-5.90); RDW 20.7 % (11.5-15.5); WBC 29.4 k/uL (3.8-10.6)
[2018-09-16] MEDS: HYDROmorphone 0.5 MG/0.5 ML SYRINGE IVP PRN (12:11)
[2018-09-16 13:25] LABS: Band Neutrophils % 6 %; Lymphocytes # (M) 0.29 k/uL (1.0-4.8); Metamyelocytes # (M) 0.29 k/uL (0); Metamyelocytes % 1 %; Monocytes # (M) 1.18 k/uL (0-1.0); Neutrophils % (M) 89 %; Nucleated Red Blood Cells 0 /100 WBC (0-0); Total Cells Counted 200
[2018-09-16] MEDS: FOLIC ACID 1 MG TAB PO SCH (14:36)
[2018-09-16] MEDS: SCOPOLAMINE 1.5MG/72HR PATCH TRANSDERM SCH (14:40)
[2018-09-16 14:44] LABS: Glucose,Whole Blood 181 mg/dL (75-99)
--- NOTE | 2018-09-16 20:26 | DS ---
DISCHARGE SUMMARY DATE OF ADMISSION: 09/11/2018 DATE OF DISCHARGE: 09/16/2018 FINAL DIAGNOSES: 1. Metastatic pancreatic cancer with large necrotic mass in the pancreatic head with extension into the duodenum with intermittent bleeding. 2. Acute non-Q-wave myocardial infarction on September 01, 2018. 3. Severe medical debility asthenia, progressive worsening from underlying malignancy. 4. Anxiety not otherwise specified. 5. Abdominal pain from malignancy. 6. Acute blood loss anemia from gastrointestinal bleed. 7. Moderate to severe protein calorie malnutrition from decreased oral intake. 8. Hypoalbuminemia from moderate to severe protein calorie intake. 9. Worsening medical debility. CONSULTATION: Dr. Ambrosio from Gastroenterology, Dr. Reid from Oncology, Dr. Brock Alexander from Cardiology, Dr. Gilberto An from radiation oncology, Dr. Joe from Pulmonary. HOSPITAL COURSE: This is a patient who was recently had an acute non-Q-wave IA, known metastatic pancreatic cancer presented with GI bleed. Overall worsening condition. Was admitted to the ICU. Continued to deteriorate. Discussions were held with the family as patient is not responding. Today discussed with Dr. Reid and we agree that prognosis is very poor and patient is rapidly declining and patient will be appropriate for hospice. Also discussed with the patient's today and as the patient is having significant symptoms, looking worse, she is agreeable to proceed with inpatient hospice. Hospice was called and the patient was in quite a bit of respiratory distress and pain. Hence patient is qualifying for general inpatient hospice. DISPOSITION: Inpatient hospice for symptom control. Discussion and discharge planning more than [address] Landers. LUIS / FLOR: [id number] /
== END 2018-09-16 16:37 | disposition hospice, inpatient (51) | DRG 377 ==
LOC: EC 11:01 → 3SCARD 13:59 → 2SICU 09-12 06:20
PROVIDERS: ADMIT Hospitalist; ATTEND Hospitalist
PROC: 30233N1 Transfusion of Nonautologous Red Blood Cells into Peripheral Vein, Percutaneous Approach (ICD-10-PCS; principal; 2018-09-12)
DX: K26.4 Chronic or unspecified duodenal ulcer with hemorrhage (principal); E43 Unspecified severe protein-calorie malnutrition; I21.4 Non-ST elevation (NSTEMI) myocardial infarction; G72.81 Critical illness myopathy; J90 Pleural effusion, not elsewhere classified; E87.2 Acidosis; C78.7 Secondary malignant neoplasm of liver and intrahepatic bile duct; C25.9 Malignant neoplasm of pancreas, unspecified; D62 Acute posthemorrhagic anemia; I95.9 Hypotension, unspecified; E86.0 Dehydration; D72.829 Elevated white blood cell count, unspecified; E11.9 Type 2 diabetes mellitus without complications; F41.9 Anxiety disorder, unspecified; E78.00 Pure hypercholesterolemia, unspecified; G89.3 Neoplasm related pain (acute) (chronic); R62.7 Adult failure to thrive; Z66 Do not resuscitate; Z51.5 Encounter for palliative care; Z71.3 Dietary counseling and surveillance; Z74.01 Bed confinement status; Z68.35 Body mass index [BMI] 35.0-35.9, adult; Z79.4 Long term (current) use of insulin; Z79.82 Long term (current) use of aspirin; Z79.899 Other long term (current) drug therapy; Z92.21 Personal history of antineoplastic chemotherapy; Z87.891 Personal history of nicotine dependence; Z80.1 Family history of malignant neoplasm of trachea, bronchus and lung; Z82.3 Family history of stroke
CPT/HCPCS: 36415; 71045; 71046; 71275; 76604; 76705; 80048; 80053; 80202; 81001; 81003; 82272; 83605; 83735; 83880; 84100; 84443; 84484; 85025; 85610; 85730; 86850; 86900; 86901; 86920; 87040; 87086; 87324; 87502; 93005; 93306; 93970; 94640; 96361; 96365; 96366; 99291

== ENCOUNTER 2018-09-16 16:48 | Inpatient (IN) | payer OTHER ==
[2018-09-16 17:39] VITALS: BMI 33.5
[2018-09-16] MEDS ORDERED: ACETAMINOPHEN IV (For NPO) 1,000 MG in EMPTY BAG 1 BAG IVPB PRN (17:44)
[2018-09-16] MEDS ORDERED: MORPHINE SULFATE (100 MG/2 ML) 100 MG in SODIUM CHLORIDE 0.9% 100 ML IV SCH (17:45)
[2018-09-16] MEDS ORDERED: ATROPINE OPHTH SOLN 1% 5ML BTL MISCELLANE PRN (17:46)
[2018-09-16] MEDS ORDERED: LORazepam 2 MG/ML INJ IV PRN (17:47)
--- NOTE | 2018-09-16 20:32 | DS ---
DISCHARGE SUMMARY HISTORY PHYSICAL AND DISCHARGE SUMMARY: DATE OF ADMISSION: 09/16/2018. DATE PATIENT : 09/16/2018. CAUSE OF : Metastatic pancreatic cancer. OTHER MEDICAL CONDITIONS: 1. Coronary artery disease. 2. Recent non-Q-wave myocardial infarction. 3. Moderate to severe protein calorie malnutrition. HOSPITAL COURSE: This patient earlier today admitted to inpatient hospice following rapid deterioration, meeting criteria for GIEP for symptom management for respiratory distress and pain. Medications ordered otherwise. Later in the day patient succumbed to the underlying conditions. Copy to Dr. Landers. MMWILLIAMSL / IJN: [id number] /
== END 2018-09-16 18:52 | disposition expired | DRG 951 ==
LOC: 2SICU 16:48
PROVIDERS: ADMIT Hospitalist; ATTEND Hospitalist
DX: Z51.5 Encounter for palliative care (principal); E43 Unspecified severe protein-calorie malnutrition; C25.0 Malignant neoplasm of head of pancreas; C78.7 Secondary malignant neoplasm of liver and intrahepatic bile duct; I25.10 Atherosclerotic heart disease of native coronary artery without angina pectoris; I25.2 Old myocardial infarction; Z68.33 Body mass index [BMI] 33.0-33.9, adult; D50.9 Iron deficiency anemia, unspecified; E11.9 Type 2 diabetes mellitus without complications; F41.9 Anxiety disorder, unspecified; E78.00 Pure hypercholesterolemia, unspecified; Z92.21 Personal history of antineoplastic chemotherapy; Z87.891 Personal history of nicotine dependence; Z79.82 Long term (current) use of aspirin; Z79.899 Other long term (current) drug therapy; Z82.3 Family history of stroke; Z80.1 Family history of malignant neoplasm of trachea, bronchus and lung